=== PATIENT | female | born 1995 | race African-American/Black ===

== ENCOUNTER 2016-11-18 20:18 | Emergency (ER) | payer OTHER ==
[2016-11-18] MEDS ORDERED: METOCLOPRAMIDE 5 MG/ML 2 ML VIAL IVP STA (22:28)
[2016-11-18] MEDS ORDERED: KETOROLAC 30 MG/ML 1 ML VIAL IVP STA (22:28)
[2016-11-18] MEDS ORDERED: diphenhydrAMINE 50 MG/ML 1 ML VIAL IVP STA (22:28)
[2016-11-18] MEDS ORDERED: SODIUM CHLORIDE 0.9% 1,000 ML IV STA (22:28)
[2016-11-18] MEDS ORDERED: ACETAMINOPHEN IV (For NPO) 1,000 MG in EMPTY BAG 1 BAG IVPB STA (22:33)
--- NOTE | 2016-11-18 23:21 | ED ---
Headache HPI - General Chief Complaint: Headache Stated Complaint: migraine Source: RN notes reviewed Mode of arrival: ambulatory Limitations: no limitations - History of Present Illness Initial Comments: Patient is a 21-year-old female presenting to emergency department with 1 week of migraine-like headache. Patient reports that she try take Aleve at home however did not much relief. Patient reports that she did feel slightly nauseated. She states she is photophobic. Patient reports that she has had migraines in the past however they've never persisted this long. She states that the pain is mainly in the right side. She denies any neurological deficits including changes in vision, paralysis, altered mental status. She denies any head trauma.Patient denies any recent fever, chills, shortness of breath, chest pain, back pain, abdominal pain, nausea vomiting, numbness or tingling, dysuria or hematuria, constipation or diarrhea, headaches or visual changes, or any other current symptoms - Related Data Home Medications Medication Instructions Recorded Confirmed Insulin Aspart [NovoLOG] See Protocol SQ 11/18/16 Insulin Glargine [Lantus] 25 units SQ DAILY 11/18/16 11/18/16 Previous Rx's Medication Instructions Recorded Ondansetron Odt [Zofran Odt] 4 mg PO Q8HR PRN #12 tab 11/19/16 Allergies Allergy/AdvReac Type Severity Reaction Status Date / Time No Known Allergies Allergy Verified 11/18/16 22:35 Review of Systems ROS Statement: Those systems with pertinent positive or pertinent negative responses have been documented in the HPI. ROS Other: All systems not noted in ROS Statement are negative. Past Medical History Past Medical History: Diabetes Mellitus History of Any Multi-Drug Resistant Organisms: None Reported Past Surgical History: No Surgical Hx Reported Past Psychological History: No Psychological Hx Reported Smoking Status: Never smoker Past Alcohol Use History: None Reported Past Drug Use History: Marijuana General Exam - General Exam Comments Initial Comments: Well-appearing 21-year-old female. Limitations: no limitations General appearance: alert, in no apparent distress Head exam: Present: atraumatic, normocephalic, normal inspection Eye exam: Present: normal appearance, PERRL, EOMI. Absent: scleral icterus, conjunctival injection, periorbital swelling ENT exam: Present: normal exam, mucous membranes moist Neck exam: Present: normal inspection. Absent: tenderness, meningismus, lymphadenopathy Respiratory exam: Present: normal lung sounds bilaterally. Absent: respiratory distress, wheezes, rales, rhonchi, stridor Cardiovascular Exam: Present: regular rate, normal rhythm, normal heart sounds. Absent: systolic murmur, diastolic murmur, rubs, gallop, clicks GI/Abdominal exam: Present: soft, normal bowel sounds. Absent: distended, tenderness, guarding, rebound, rigid Extremities exam: Present: normal inspection, full ROM, normal capillary refill. Absent: tenderness, pedal edema, joint swelling, calf tenderness Back exam: Present: normal inspection Neurological exam: Present: alert, oriented X3, CN II-XII intact Expanded Patient oriented to: Present: person, place, time Speech: Present: fluid speech Cranial nerves: EOM's Intact: Normal, Tongue Deviation: Normal, Facial Sensation : Normal Cerebellar function: Finger to Nose: Normal Upper motor neuron: Pronator Drift: Normal Sensory exam: Upper Extremity Light Touch: Normal, Lower Extremity Light Touch: Normal Motor strength exam: RUE: 5, LUE: 5, RLE: 5, LLE: 5 Eye Response: (4) open spontaneously Motor Response: (6) obeys commands Verbal Response: (5) oriented [place] Total: 0 Psychiatric exam: Present: normal affect, normal mood Skin exam: Present: warm, dry, intact, normal color. Absent: rash Course Vital Signs 11/18/16 11/19/16 20:31 01:31 Temperature 98.1 F 98.4 F Pulse Rate 104 H 84 Respiratory 20 16 Rate Blood Pressure 133/93 130/56 O2 Sat by Pulse 99 97 Oximetry - Reevaluation(s) Reevaluation #1: 11/19/16 00:11 She was reevaluated and was dry heaving. Patient reports that her headache is worse. Medical Decision Making - Medical Decision Making is 21-year-old female presenting to the with 5 days of migraine-like headache. Patient reports that is mainly over the right side of her head. She reports that she took Aleve at home with no relief of symptoms. Patient was given IV Reglan, Benadryl, ofirmev and Toradol. Patient stated that she did have continued dry heaving. At that point patient reports her headache was worse. Patient did receive a CT brain and and was negative. Patient will be discharged at this time stating that her headache feels much improved after further hydration. Patient will be discharged with a prescription of Zofran. Patient understands return parameters. I advised patient follow-up with pcp in regards to maintenance medication for migraine. Patient understands and will comply with the treatment plan. - Radiology Data Radiology results: report reviewed CT of brain reveals no evidence of any acute abnormalities. Disposition Clinical Impression: Migraine, Nausea Disposition: HOME SELF-CARE Condition: Good Instructions: Acute Headache (ED) Additional Instructions: Continue Motrin Tylenol for headache. Patient instructed to follow up with primary care regards to migraine maintenance medications. Return to the [facility] if any alarming signs or symptoms occur. Remember stay hydrated and to have small frequent meals. Prescriptions: Ondansetron Odt [Zofran Odt] 4 mg PO Q8HR PRN #12 tab PRN Reason: Pain Referrals: Radha Choi MD [Primary Care Provider] - 1-2 days Time of Disposition: 00:35
[2016-11-19] MEDS ORDERED: ONDANSETRON 4 MG/2 ML VIAL IVP STA (00:01)
--- NOTE | 2016-11-19 00:58 | CT ---
EXAMINATION TYPE: CT brain wo con DATE OF EXAM: 11/19/2016 12:26 AM COMPARISON: NONE HISTORY: migraine headache CT DLP: 1144.70 mGycm Automated exposure control for dose reduction was used. FINDINGS: There is no acute intracranial hemorrhage, mass effect, or midline shift identified. The ventricles and sulci are within normal limits in size. The globes are intact and the visualized sinuses are steven ar. Earing artifacts are noted bilaterally limiting the evaluation. IMPRESSION: No acute intracranial hemorrhage, mass effect, or midline shift is seen. If clinical symptoms persist MRI scan may be helpful.
[2016-11-19 01:31] VITALS: BP 130/56; PULSE 84; RESP 16; TEMP 98.4
== END 2016-11-19 01:31 | disposition home or self-care (01) ==
LOC: EC 20:18
DX: G43.909 Migraine, unspecified, not intractable, without status migrainosus (principal); E11.9 Type 2 diabetes mellitus without complications; Z79.4 Long term (current) use of insulin
CPT/HCPCS: 99284; 96365; 96375; 70450; J1200; J2765; J2405; J1885; J0131

== ENCOUNTER 2016-12-16 14:20 | Emergency (ER) | payer OTHER ==
[2016-12-16] MEDS ORDERED: BUTALB/APAP/CAFF 50-325-40MG TAB PO STA (16:21)
[2016-12-16] MEDS ORDERED: ONDANSETRON ODT 4 MG TAB PO STA (16:22)
--- NOTE | 2016-12-16 16:28 | ED ---
General Adult HPI - General Chief complaint: ENT Stated complaint: Pressure R side of head/Vomiting Time Seen by Provider: 12/16/16 16:08 Source: patient, RN notes reviewed, old records reviewed Mode of arrival: ambulatory Limitations: no limitations - History of Present Illness Initial comments: Chief complaint history of present illness is a 21-year-old female with complaint of recurrent headache. The patient was in emergency room several weeks ago was given a prescription for Zofran to control nausea vomiting but she did not get it filled in essence lost it. Today she was sent home from work because of a headache and vomiting. The patient works as a beautician. Or lateralizing findings. Right frontal headache area. Her migraine started approximately 3 years ago the intermittent. Not related to any particular event. Denies any head injury or problems with the infections. - Related Data Home Medications Medication Instructions Recorded Confirmed Insulin Aspart [NovoLOG] See Protocol SQ AC-TID 11/18/16 12/16/16 Lisinopril [Zestril] 10 mg PO DAILY 12/16/16 12/16/16 metFORMIN HCL [Glucophage] 500 mg PO BID 12/16/16 12/16/16 Previous Rx's Medication Instructions Recorded Butalb/Acetaminophen/Caffeine 1 cap PO Q4HR #10 cap 12/16/16 [Fioricet 50-300-40 mg Capsule] Ondansetron Odt [Zofran ODT] 4 mg PO Q8HR PRN #5 tab 12/16/16 Allergies Allergy/AdvReac Type Severity Reaction Status Date / Time No Known Allergies Allergy Verified 12/16/16 15:45 Review of Systems ROS Statement: Those systems with pertinent positive or pertinent negative responses have been documented in the HPI. Review of systems. Mild photophobia right frontal headache. No nasal drainage. Mild discomfort to the right ear. No stiff neck no chest pain shows breath GI/ problems no neuro deficits. All systems are reviewed. Past medical problems significant for migraines a starter fracture 3 years ago without any particular reason. She also has a history of asthma. She takes medication for non-insulin diabetes mellitus. Surgeries none. Family history mother had brain cancer and grandfather had stomach cancer. She denies ALLERGIES nonsmoker nondrinker. ROS Other: All systems not noted in ROS Statement are negative. Past Medical History Past Medical History: Diabetes Mellitus Additional Past Medical History / Comment(s): migraines History of Any Multi-Drug Resistant Organisms: None Reported Past Surgical History: No Surgical Hx Reported Past Psychological History: No Psychological Hx Reported Smoking Status: Never smoker Past Alcohol Use History: None Reported Past Drug Use History: Marijuana General Exam - General Exam Comments Initial Comments: General: The patient is awake and alert, sent home from work she vomited once with a headache which is recurrent. Vital signs shows temperature 97.7 pulse 90 respiratory rate 18 pulse ox 97% room air blood pressure 144/85. Mildly elevated stomach and diastolic noted. The patient is on blood pressure pills. The patient will be following up with her family physician in the next week 10 days. Morbidly obese, 315 pounds. Eye: Pupils are equal, round and reactive to light, extra-ocular movements are intact ; there is normal conjunctiva bilaterally. No signs of icterus. Headache right frontal area tenderness with palpation over the skin. No rash noted. We did discuss temporal arteritis. Ears, nose, mouth and throat: There are moist mucous membranes and no oral lesions. Neck: The neck is supple, there is no tenderness , no anterior cervical lymphadenopathy. Cardiovascular: There is a regular rate and rhythm. No murmur, rub or gallop is appreciated. Respiratory: Lungs are clear to auscultation, respirations are non-labored, breath sounds are equal. No wheezes, stridor, rales, or rhonchi. Gastrointestinal: Soft, non-distended, non-tender abdomen without masses or organomegaly noted. There is no rebound or guarding present. No CVA tenderness. Bowel sounds are unremarkable. Back: No complaint of back pain. Musculoskeletal: Normal ROM, no tenderness, There is no pedal edema. There is no calf tenderness or swelling. Sensation intact. Neurological: CN II-XII intact, There are no obvious motor or sensory deficits. Coordination appears grossly intact. Speech is normal. No focal or lateralizing findings Skin: Skin is warm and dry and no rashes or lesions are noted. Limitations: no limitations Course Vital Signs 12/16/16 14:44 Temperature 97.7 F Pulse Rate 90 Respiratory 18 Rate Blood Pressure 144/85 O2 Sat by Pulse 97 Oximetry Medical Decision Making - Medical Decision Making Medical decision making; the patient will be following up with her family physician. Advised to take Fioricet getting of a headache as well as Zofran. Told to rest relax for an hour if she can possibly take a nap that will help. Disposition Clinical Impression: Acute headache Disposition: HOME SELF-CARE Condition: Stable Instructions: Tension Headache (ED) Additional Instructions: At the first sign of a headache take one Fioricet and Zofran and try to rest. Follow-up with family physician. Prescriptions: Butalb/Acetaminophen/Caffeine [Fioricet 50-300-40 mg Capsule] 1 cap PO Q4HR #10 cap Ondansetron Odt [Zofran ODT] 4 mg PO Q8HR PRN #5 tab PRN Reason: Nausea Time of Disposition: 16:28
[2016-12-16 16:44] VITALS: BP 138/87; PULSE 18; RESP 98; TEMP 97.6
== END 2016-12-16 16:44 | disposition home or self-care (01) ==
LOC: EC 14:20
DX: R51 Headache (principal); E11.9 Type 2 diabetes mellitus without complications; Z79.899 Other long term (current) drug therapy; Z79.84 Long term (current) use of oral hypoglycemic drugs
CPT/HCPCS: 99283

== ENCOUNTER 2017-03-27 18:53 | Emergency (ER) | payer OTHER ==
--- NOTE | 2017-03-27 20:02 | ED ---
General Adult HPI - General Chief complaint: GI Bleed Stated complaint: blood in stool Time Seen by Provider: 03/27/17 19:45 Source: patient, family, RN notes reviewed Mode of arrival: ambulatory Limitations: no limitations - History of Present Illness Initial comments: 22-year-old female presenting for blood in her stool. Patient states around 11 AM today she had a bowel movement and noticed some red blood. She denies ever having this happen before. She denies any abdominal pain associated. She denies any blood thinner use. She denies any pain with defecation. She does state she has a history of diabetes which is controlled with insulin. Otherwise no significant medical history. She has not had any other bowel movements today. She denies chest pain or shortness breath. She denies nausea or vomiting. - Related Data Home Medications Medication Instructions Recorded Confirmed Insulin Aspart [NovoLOG] See Protocol SQ AC-TID PRN 11/18/16 03/27/17 Insulin Glargine [Lantus] 15 unit SQ HS 03/27/17 03/27/17 Allergies Allergy/AdvReac Type Severity Reaction Status Date / Time No Known Allergies Allergy Verified 03/27/17 20:15 Review of Systems ROS Statement: Those systems with pertinent positive or pertinent negative responses have been documented in the HPI. ROS Other: All systems not noted in ROS Statement are negative. Past Medical History Past Medical History: Diabetes Mellitus Additional Past Medical History / Comment(s): migraines History of Any Multi-Drug Resistant Organisms: None Reported Past Surgical History: No Surgical Hx Reported Past Psychological History: No Psychological Hx Reported Smoking Status: Never smoker Past Alcohol Use History: None Reported Past Drug Use History: None Reported General Exam - General Exam Comments Initial Comments: General: Awake and Alert. No acute distress. Does not appear acutely ill. Obese. Eyes: ELEAZAR, EOM intact. No nystagmus. No scleral icterus. HENT: Atraumatic, normocephalic. Mucous membranes moist. Trachea midline. Neck: The neck is supple, there is no tenderness or JVD. Cardiovascular: Regular rate and rhythm. No murmur, rub, or gallop is appreciated. Distal pulses intact. Respiratory: Lungs are clear to auscultation bilaterally. No wheezes, rales, rhonchi. No respiratory distress. Gastrointestinal: Soft, Nontender. No rebound or guarding. Non-distended. No masses or organomegaly noted. No CVA tenderness. Genitourinary: Rectal exam performed with female nurse present. No evidence of external hemorrhoids or fissures. Good rectal tone. No rectal masses. No gross blood on rectal exam. Musculoskeletal: No tenderness. Normal ROM. No gross deformity. No strength deficits. Neurological: A&Ox3. CN II-XII grossly intact, There are no obvious motor or sensory deficits. Coordination appears grossly intact. Speech is normal. Skin: Skin is warm and dry and no rashes or lesions are noted. Psychiatric: Cooperative, appropriate mood & affect, normal judgment. Limitations: no limitations Course Vital Signs 03/27/17 03/27/17 19:32 21:25 Temperature 97.9 F 97.5 F L Pulse Rate 100 88 Respiratory 18 16 Rate Blood Pressure 119/64 153/76 O2 Sat by Pulse 98 96 Oximetry Medical Decision Making - Medical Decision Making 22-year-old female presenting for rectal bleeding. Patient appears stable and nontoxic and initial exam. Stable vital signs. No abdominal tenderness or evidence of acute peritonitis. Lab work with mild leukocytosis, nonspecific, low suspicion of significant infectious etiology. Stable H&H. Stable BMP. LFTs within normal limits. UA without evidence of infection. Occult testing is negative. Patient reevaluated. Remained stable. Updated on results. Discussed nonspecific GI bleeding, but reassuring findings and stable H&H. Discussed close follow-up with PCP. Given referral for GI for further evaluation. Discussed need for colonoscopy for further evaluation if symptoms return. Discussed concerning signs symptoms for immediate return to the ED. Patient is agreeable with plan and discharge home. - Lab Data Result diagrams: 03/27/17 19:55 03/27/17 19:55 Lab Results 03/27/17 03/27/17 03/27/17 Range/Units 19:55 19:55 19:55 WBC 13.0 H (3.8-10.6) k/uL RBC 4.79 (3.80-5.40) m/uL Hgb 13.8 (11.4-16.0) gm/dL Hct 40.5 (34.0-46.0) % MCV 84.5 (80.0-100.0) fL MCH 28.8 (25.0-35.0) pg MCHC 34.1 (31.0-37.0) g/dL RDW 12.8 (11.5-15.5) % Plt Count 326 (150-450) k/uL Neutrophils % 66 % Lymphocytes % 26 % Monocytes % 5 % Eosinophils % 1 % Basophils % 1 % Neutrophils # 8.5 H (1.3-7.7) k/uL Lymphocytes # 3.4 (1.0-4.8) k/uL Monocytes # 0.7 (0-1.0) k/uL Eosinophils # 0.2 (0-0.7) k/uL Basophils # 0.1 (0-0.2) k/uL Sodium 138 (137-145) mmol/L Potassium 3.9 (3.5-5.1) mmol/L Chloride 101 (98-107) mmol/L Carbon Dioxide 25 (22-30) mmol/L Anion Gap 12 mmol/L BUN 11 (7-17) mg/dL Creatinine 0.50 L (0.52-1.04) mg/dL Est GFR (MDRD) Af Amer >60 (>60 ml/min/1.73 sqM) Est GFR (MDRD) Non-Af >60 (>60 ml/min/1.73 sqM) Glucose 289 H (74-99) mg/dL Calcium 9.8 (8.4-10.2) mg/dL Total Bilirubin 0.7 (0.2-1.3) mg/dL AST 25 (14-36) U/L ALT 43 (9-52) U/L Alkaline Phosphatase 76 (38-126) U/L Total Protein 7.9 (6.3-8.2) g/dL Albumin 4.2 (3.5-5.0) g/dL Urine Color Urine Appearance (Clear) Urine pH (5.0-8.0) Ur Specific [place] (1.001-1.035) Urine Protein (Negative) Urine Glucose (UA) (Negative) Urine Ketones (Negative) Urine Blood (Negative) Urine Nitrite (Negative) Urine Bilirubin (Negative) Urine Urobilinogen (<2.0) mg/dL Ur Leukocyte Esterase (Negative) Urine HCG, Qual Not Detected (Not Detectd) Stool Occult Blood (Negative) 03/27/17 03/27/17 Range/Units 19:55 21:01 WBC (3.8-10.6) k/uL RBC (3.80-5.40) m/uL Hgb (11.4-16.0) gm/dL Hct (34.0-46.0) % MCV (80.0-100.0) fL MCH (25.0-35.0) pg MCHC (31.0-37.0) g/dL RDW (11.5-15.5) % Plt Count (150-450) k/uL Neutrophils % % Lymphocytes % % Monocytes % % Eosinophils % % Basophils % % Neutrophils # (1.3-7.7) k/uL Lymphocytes # (1.0-4.8) k/uL Monocytes # (0-1.0) k/uL Eosinophils # (0-0.7) k/uL Basophils # (0-0.2) k/uL Sodium (137-145) mmol/L Potassium (3.5-5.1) mmol/L Chloride (98-107) mmol/L Carbon Dioxide (22-30) mmol/L Anion Gap mmol/L BUN (7-17) mg/dL Creatinine (0.52-1.04) mg/dL Est GFR (MDRD) Af Amer (>60 ml/min/1.73 sqM) Est GFR (MDRD) Non-Af (>60 ml/min/1.73 sqM) Glucose (74-99) mg/dL Calcium (8.4-10.2) mg/dL Total Bilirubin (0.2-1.3) mg/dL AST (14-36) U/L ALT (9-52) U/L Alkaline Phosphatase (38-126) U/L Total Protein (6.3-8.2) g/dL Albumin (3.5-5.0) g/dL Urine Color Yellow Urine Appearance Clear (Clear) Urine pH 5.5 (5.0-8.0) Ur Specific [place] 1.028 (1.001-1.035) Urine Protein Trace H (Negative) Urine Glucose (UA) 4+ H (Negative) Urine Ketones 1+ H (Negative) Urine Blood Negative (Negative) Urine Nitrite Negative (Negative) Urine Bilirubin Negative (Negative) Urine Urobilinogen <2.0 (<2.0) mg/dL Ur Leukocyte Esterase Negative (Negative) Urine HCG, Qual (Not Detectd) Stool Occult Blood Negative (Negative) Disposition Clinical Impression: GI bleed Disposition: HOME SELF-CARE Condition: Stable Instructions: Gastrointestinal Bleeding (ED) Referrals: Radha Choi MD [Primary Care Provider] - 1-[address] MD [STAFF PHYSICIAN] - 1-2 days Time of Disposition: 21:08
[2017-03-27 20:16] LABS: Basophils # (A) 0.1 k/uL (0-0.2); Basophils % (A) 1 %; CH 29.4; CHCM 34.9; Eosinophils # (A) 0.2 k/uL (0-0.7); Eosinophils % (A) 1 %; HCT 40.5 % (34.0-46.0); HDW 2.69; HGB 13.8 gm/dL (11.4-16.0); Luc # (Auto) 0.19; Luc % (Auto) 2; Lymphocytes # (A) 3.4 k/uL (1.0-4.8); Lymphocytes % (A) 26 %; MCH 28.8 pg (25.0-35.0); MCHC 34.1 g/dL (31.0-37.0); MCV 84.5 fL (80.0-100.0); Mean Platelet Volume 8.4; Monocytes # (A) 0.7 k/uL (0-1.0); Monocytes % (A) 5 %; Neutrophils # (A) 8.5 k/uL (1.3-7.7); Neutrophils % (A) 66 %; RBC 4.79 m/uL (3.80-5.40); RDW 12.8 % (11.5-15.5); WBC (Perox) 12.83
[2017-03-27 20:28] LABS: Appearance,Urine Clear (Clear); Bilirubin,Urine Negative (Negative); Glucose,Urine (UA) 4+ (Negative); Ketones,Urine 1+ (Negative); Leukocyte Esterase,Urine Negative (Negative); Nitrite,Urine Negative (Negative); PH, Urine 5.5 (5.0-8.0); Protein,Urine Trace (Negative); Specific Gravity,Urine 1.028 (1.001-1.035); UA Billing (MACRO vs. MICRO) CHEM; Urobilinogen,Urine <2.0 mg/dL (<2.0)
[2017-03-27 20:39] LABS: ALT 43 U/L (9-52); AST 25 U/L (14-36); Alkaline Phosphatase 76 U/L (38-126); Anion Gap 12 mmol/L; Blood Urea Nitrogen 11 mg/dL (7-17); Calcium 9.8 mg/dL (8.4-10.2); Carbon Dioxide 25 mmol/L (22-30); Chloride 101 mmol/L (98-107); Glucose 289 mg/dL (74-99); Non-African American GFR(MDRD) >60 (>60 ml/min/1.73 sqM); Potassium 3.9 mmol/L (3.5-5.1); Sodium 138 mmol/L (137-145); Total Bilirubin 0.7 mg/dL (0.2-1.3); Total Protein 7.9 g/dL (6.3-8.2)
[2017-03-27 21:29] VITALS: BP 153/76; PULSE 88; RESP 16; TEMP 97.5
== END 2017-03-27 21:25 | disposition home or self-care (01) ==
LOC: EC 18:53
DX: K92.2 Gastrointestinal hemorrhage, unspecified (principal); D72.829 Elevated white blood cell count, unspecified; E11.9 Type 2 diabetes mellitus without complications; Z79.4 Long term (current) use of insulin
CPT/HCPCS: 36415; 80053; 81003; 81025; 82272; 85025; 99284

== ENCOUNTER 2017-12-02 16:15 | Emergency (ER) | payer OTHER ==
[2017-12-02 16:23] VITALS: RESP 18
[2017-12-02] MEDS ORDERED: SODIUM CHLORIDE 0.9% 1,000 ML IV STA (17:01)
[2017-12-02] MEDS ORDERED: METOCLOPRAMIDE 5 MG/ML 2 ML VIAL IVP STA (17:01)
[2017-12-02] MEDS ORDERED: ACETAMINOPHEN TAB 500 MG TAB PO STA (17:02)
[2017-12-02] MEDS ORDERED: IBUPROFEN 600 MG TAB PO STA (17:02)
[2017-12-02 17:16] LABS: Basophils % (A) 0 %; Eosinophils # (A) 0.2 k/uL (0-0.7); Eosinophils % (A) 2 %; HCT 37.6 % (34.0-46.0); HGB 12.5 gm/dL (11.4-16.0); Lymphocytes # (A) 1.2 k/uL (1.0-4.8); Lymphocytes % (A) 13 %; MCH 28.6 pg (25.0-35.0); MCHC 33.2 g/dL (31.0-37.0); MCV 86.1 fL (80.0-100.0); Mean Platelet Volume 9.4; Monocytes # (A) 0.5 k/uL (0-1.0); Monocytes % (A) 6 %; Neutrophils # (A) 7.3 k/uL (1.3-7.7); Neutrophils % (A) 77 %; Platelet Count 281 k/uL (150-450); RBC 4.37 m/uL (3.80-5.40); RDW 13.9 % (11.5-15.5); WBC 9.5 k/uL (3.8-10.6)
[2017-12-02 17:25] LABS: Appearance,Urine Clear (Clear); Bilirubin,Urine Negative (Negative); Blood,Urine Small (Negative); Color,Urine Yellow; Glucose,Urine (UA) Negative (Negative); Ketones,Urine Negative (Negative); Leukocyte Esterase,Urine Negative (Negative); Mucus,Urine Rare /hpf; Nitrite,Urine Negative (Negative); Protein,Urine Negative (Negative); RBC,Urine 12 /hpf (0-5); Specific Gravity,Urine 1.009 (1.001-1.035); Urobilinogen,Urine <2.0 mg/dL (<2.0); WBC,Urine <1 /hpf (0-5)
[2017-12-02 17:27] LABS: Glucose,Whole Blood 142 mg/dL (75-99)
[2017-12-02 17:29] LABS: ALT 34 U/L (9-52); AST 21 U/L (14-36); Albumin 4.2 g/dL (3.5-5.0); Alkaline Phosphatase 63 U/L (38-126); Anion Gap 12 mmol/L; Blood Urea Nitrogen 5 mg/dL (7-17); Calcium 9.5 mg/dL (8.4-10.2); Carbon Dioxide 25 mmol/L (22-30); Chloride 103 mmol/L (98-107); Glucose 151 mg/dL (74-99); Potassium 4.2 mmol/L (3.5-5.1); Sodium 140 mmol/L (137-145); Total Bilirubin 0.6 mg/dL (0.2-1.3); Total Protein 7.5 g/dL (6.3-8.2)
--- NOTE | 2017-12-02 17:33 | ED ---
General Adult HPI - General Chief complaint: Abdominal Pain Stated complaint: Vomiting/Abd Pain Time Seen by Provider: 12/02/17 16:47 Source: patient, RN notes reviewed Mode of arrival: ambulatory Limitations: no limitations - History of Present Illness Initial comments: 22-year-old female presents to the emergency department with a chief complaint of fever cough abdominal pain chest pain headache. She states she's been feeling this way for the past for 5 days. She states that she has vomited a few times with this. She states that she is having a little bit of production with the cough. She states she was concerned because she just does not seem to be getting better so she thought that she should be evaluated. Patient states that there is been no ear pain with this. Patient denies any other symptoms at this time. Patient denies any recent shortness of breath, back pain, numbness or tingling, dysuria or hematuria, constipation or diarrhea, visual changes, or any other current symptoms. - Related Data Home Medications Medication Instructions Recorded Confirmed Insulin Aspart [NovoLOG] See Protocol SQ AC-TID PRN 11/18/16 12/02/17 Insulin Glargine [Lantus] 15 unit SQ HS 03/27/17 12/02/17 metFORMIN HCL [Glucophage] 500 mg PO DAILY 12/02/17 12/02/17 Allergies Allergy/AdvReac Type Severity Reaction Status Date / Time No Known Allergies Allergy Verified 12/02/17 16:50 Review of Systems ROS Statement: Those systems with pertinent positive or pertinent negative responses have been documented in the HPI. ROS Other: All systems not noted in ROS Statement are negative. Past Medical History Past Medical History: Diabetes Mellitus Additional Past Medical History / Comment(s): migraines History of Any Multi-Drug Resistant Organisms: None Reported Past Surgical History: No Surgical Hx Reported Past Psychological History: No Psychological Hx Reported Smoking Status: Never smoker Past Alcohol Use History: Rare Past Drug Use History: Marijuana General Exam - General Exam Comments Initial Comments: General: The patient is awake and alert, in no distress, and does not appear acutely ill. Eye: Pupils are equal, round and reactive to light. Ears, nose, mouth and throat: There are moist mucous membranes. Neck: The neck is supple, there is no tenderness. Cardiovascular: There is a regular rate and rhythm. No murmur, rub or gallop is appreciated. Respiratory: Lungs are clear to auscultation, respirations are non-labored, breath sounds are equal. No wheezes, stridor, rales, or rhonchi. Gastrointestinal: Soft, non-distended, non-tender abdomen without masses or organomegaly noted. There is no rebound or guarding present. No CVA tenderness. Bowel sounds are unremarkable. Back: There is no tenderness to palpation in the midline. There is no obvious deformity. No rashes noted. Musculoskeletal: Normal ROM, no tenderness, There is no pedal edema. There is no calf tenderness or swelling. Sensation intact. Pulses equal bilaterally 2+. Neurological: CN II-XII intact, There are no obvious motor or sensory deficits. Coordination appears grossly intact. Speech is normal. Skin: Skin is warm and dry and no rashes or lesions are noted. Psychiatric: Cooperative, appropriate mood & affect, normal judgment. Limitations: no limitations Course Vital Signs 12/02/17 16:19 Temperature 101 F H Pulse Rate 77 Respiratory 18 Rate Blood Pressure 149/81 O2 Sat by Pulse 96 Oximetry EKG Findings - EKG Comments: EKG Findings:: normal sinus rhythm 72 bpm, normal axis, no atopy, no S-T depressions or elevations, Medical Decision Making - Medical Decision Making 22-year-old female presents with multiple complaints. Laboratory results of been reviewed. Patient is PERC negative. We did discuss in detail with the patient. We did discuss close follow-up with her doctor return parameters all questions. Patient stated that she understood she is in agreement this plan. All questions have been answered. She will be discharged. - Lab Data Result diagrams: 12/02/17 17:00 12/02/17 17:00 Lab Results 12/02/17 12/02/17 12/02/17 Range/Units 17:00 17:00 17:00 WBC 9.5 (3.8-10.6) k/uL RBC 4.37 (3.80-5.40) m/uL Hgb 12.5 (11.4-16.0) gm/dL Hct 37.6 (34.0-46.0) % MCV 86.1 (80.0-100.0) fL MCH 28.6 (25.0-35.0) pg MCHC 33.2 (31.0-37.0) g/dL RDW 13.9 (11.5-15.5) % Plt Count 281 (150-450) k/uL Neutrophils % 77 % Lymphocytes % 13 % Monocytes % 6 % Eosinophils % 2 % Basophils % 0 % Neutrophils # 7.3 (1.3-7.7) k/uL Lymphocytes # 1.2 (1.0-4.8) k/uL Monocytes # 0.5 (0-1.0) k/uL Eosinophils # 0.2 (0-0.7) k/uL Basophils # 0.0 (0-0.2) k/uL Sodium 140 (137-145) mmol/L Potassium 4.2 (3.5-5.1) mmol/L Chloride 103 (98-107) mmol/L Carbon Dioxide 25 (22-30) mmol/L Anion Gap 12 mmol/L BUN 5 L (7-17) mg/dL Creatinine 0.51 L (0.52-1.04) mg/dL Est GFR (MDRD) Af Amer >60 (>60 ml/min/1.73 sqM) Est GFR (MDRD) Non-Af >60 (>60 ml/min/1.73 sqM) Glucose 151 H (74-99) mg/dL POC Glucose (mg/dL) (75-99) mg/dL POC Glu Featheredge Machine Operator ID Calcium 9.5 (8.4-10.2) mg/dL Total Bilirubin 0.6 (0.2-1.3) mg/dL AST 21 (14-36) U/L ALT 34 (9-52) U/L Alkaline Phosphatase 63 (38-126) U/L Troponin I (0.000-0.034) ng/mL Total Protein 7.5 (6.3-8.2) g/dL Albumin 4.2 (3.5-5.0) g/dL Urine Color Urine Appearance (Clear) Urine pH (5.0-8.0) Ur Specific [place] (1.001-1.035) Urine Protein (Negative) Urine Glucose (UA) (Negative) Urine Ketones (Negative) Urine Blood (Negative) Urine Nitrite (Negative) Urine Bilirubin (Negative) Urine Urobilinogen (<2.0) mg/dL Ur Leukocyte Esterase (Negative) Urine RBC (0-5) /hpf Urine WBC (0-5) /hpf Urine Mucus (None) /hpf Acetone, Qual Negative (Negative) Influenza Type A RNA Not Detected (Not Detectd) Influenza Type B (PCR) Not Detected (Not Detectd) 12/02/17 12/02/17 12/02/17 Range/Units 17:00 17:00 17:21 WBC (3.8-10.6) k/uL RBC (3.80-5.40) m/uL Hgb (11.4-16.0) gm/dL Hct (34.0-46.0) % MCV (80.0-100.0) fL MCH (25.0-35.0) pg MCHC (31.0-37.0) g/dL RDW (11.5-15.5) % Plt Count (150-450) k/uL Neutrophils % % Lymphocytes % % Monocytes % % Eosinophils % % Basophils % % Neutrophils # (1.3-7.7) k/uL Lymphocytes # (1.0-4.8) k/uL Monocytes # (0-1.0) k/uL Eosinophils # (0-0.7) k/uL Basophils # (0-0.2) k/uL Sodium (137-145) mmol/L Potassium (3.5-5.1) mmol/L Chloride (98-107) mmol/L Carbon Dioxide (22-30) mmol/L Anion Gap mmol/L BUN (7-17) mg/dL Creatinine (0.52-1.04) mg/dL Est GFR (MDRD) Af Amer (>60 ml/min/1.73 sqM) Est GFR (MDRD) Non-Af (>60 ml/min/1.73 sqM) Glucose (74-99) mg/dL POC Glucose (mg/dL) 142 H (75-99) mg/dL POC Glu Featheredge Machine Operator ID Renuka Chatman Calcium (8.4-10.2) mg/dL Total Bilirubin (0.2-1.3) mg/dL AST (14-36) U/L ALT (9-52) U/L Alkaline Phosphatase (38-126) U/L Troponin I <0.012 (0.000-0.034) ng/mL Total Protein (6.3-8.2) g/dL Albumin (3.5-5.0) g/dL Urine Color Yellow Urine Appearance Clear (Clear) Urine pH 7.0 (5.0-8.0) Ur Specific [place] 1.009 (1.001-1.035) Urine Protein Negative (Negative) Urine Glucose (UA) Negative (Negative) Urine Ketones Negative (Negative) Urine Blood Small H (Negative) Urine Nitrite Negative (Negative) Urine Bilirubin Negative (Negative) Urine Urobilinogen <2.0 (<2.0) mg/dL Ur Leukocyte Esterase Negative (Negative) Urine RBC 12 H (0-5) /hpf Urine WBC <1 (0-5) /hpf Urine Mucus Rare H (None) /hpf Acetone, Qual (Negative) Influenza Type A RNA (Not Detectd) Influenza Type B (PCR) (Not Detectd) Disposition Clinical Impression: Upper respiratory infection Disposition: HOME SELF-CARE Condition: Stable Instructions: Upper Respiratory Infection (ED) Additional Instructions: Please use medication as discussed. Please follow up with family doctor if symptoms have not improved over the next two days. Please return to the emergency room if your symptoms increase or worsen or for any other concerns. Referrals: Radha Choi MD [Primary Care Provider] - 1-2 days Time of Disposition: 18:23
--- NOTE | 2017-12-02 17:45 | XR ---
EXAMINATION TYPE: XR chest 2V DATE OF EXAM: 12/02/2017 COMPARISON: NONE HISTORY: Chest pain TECHNIQUE: Frontal and lateral views of the chest are obtained. FINDINGS: There is no heart failure nor confluent pneumonic infiltrate. Costophrenic angles are laura r. There are no hilar masses. Bony thorax is intact. IMPRESSION: No active cardiopulmonary disease. Normal heart.
[2017-12-02 18:25] VITALS: BP 153/75; PULSE 69; TEMP 98.9
== END 2017-12-02 18:30 | disposition home or self-care (01) ==
LOC: EC 16:15
DX: J06.9 Acute upper respiratory infection, unspecified (principal); R10.9 Unspecified abdominal pain; R11.10 Vomiting, unspecified; R07.9 Chest pain, unspecified; E11.9 Type 2 diabetes mellitus without complications; Z86.69 Personal history of other diseases of the nervous system and sense organs; Z79.4 Long term (current) use of insulin
CPT/HCPCS: 36415; 93005; 80053; 82009; 84484; 85025; 81001; 87086; 87502; 71046; 99284; 96374; 96361; J2765

== ENCOUNTER 2018-01-01 11:48 | Emergency (ER) | payer OTHER ==
[2018-01-01] MEDS ORDERED: KETOROLAC 30 MG/ML 1 ML VIAL IVP STA (16:13)
[2018-01-01] MEDS ORDERED: diphenhydrAMINE 50 MG/ML 1 ML VIAL IVP STA (16:13)
[2018-01-01] MEDS ORDERED: METOCLOPRAMIDE 5 MG/ML 2 ML VIAL IVP STA (16:13)
[2018-01-01] MEDS ORDERED: SODIUM CHLORIDE 0.9% 1,000 ML IV ONE (16:14)
--- NOTE | 2018-01-01 16:18 | ED ---
Headache HPI - General Chief Complaint: Headache Stated Complaint: HEADACHE FOR 3 DAYS, Time Seen by Provider: 01/01/18 16:00 Source: patient, RN notes reviewed Mode of arrival: ambulatory Limitations: no limitations - History of Present Illness Initial Comments: This is a 22 year old female who presents to the ED with a chief complaint of migraine which has been present for three days. She states the pain is located on the left frontal region and behind the left eye. She admits photophobia and nausea. The patient has a history of migraines. She denies this being the worst headache of her life, head injury, and has no chance of . - Related Data Home Medications Medication Instructions Recorded Confirmed Insulin Aspart [NovoLOG] See Protocol SQ AC-TID PRN 11/18/16 01/01/18 Insulin Glargine [Lantus] 15 unit SQ HS 03/27/17 01/01/18 Albuterol Inhaler [Ventolin Hfa 2 puff INHALATION RT-Q6H PRN 01/01/18 01/01/18 Inhaler] Ibuprofen [Motrin] 1,200 mg PO DAILY PRN 01/01/18 01/01/18 Multivitamins, Thera [Multivitamin 1 tab PO DAILY 01/01/18 01/01/18 (formulary)] Allergies Allergy/AdvReac Type Severity Reaction Status Date / Time No Known Allergies Allergy Verified 01/01/18 16:06 Review of Systems ROS Statement: Those systems with pertinent positive or pertinent negative responses have been documented in the HPI. ROS Other: All systems not noted in ROS Statement are negative. Past Medical History Past Medical History: Diabetes Mellitus Additional Past Medical History / Comment(s): migraines History of Any Multi-Drug Resistant Organisms: None Reported Past Surgical History: No Surgical Hx Reported Past Psychological History: No Psychological Hx Reported Smoking Status: Never smoker Past Alcohol Use History: Rare Past Drug Use History: Marijuana General Exam Limitations: no limitations General appearance: alert, in no apparent distress Head exam: Present: atraumatic, normocephalic, normal inspection Eye exam: Present: normal appearance, PERRL, EOMI. Absent: scleral icterus, conjunctival injection, periorbital swelling Pupils: Present: normal accommodation ENT exam: Present: normal exam, mucous membranes moist Neck exam: Present: normal inspection, full ROM. Absent: tenderness, meningismus, lymphadenopathy Respiratory exam: Present: normal lung sounds bilaterally. Absent: respiratory distress, wheezes, rales, rhonchi, stridor Cardiovascular Exam: Present: regular rate, normal rhythm, normal heart sounds. Absent: systolic murmur, diastolic murmur, rubs, gallop, clicks Neurological exam: Present: alert, oriented X3, CN II-XII intact, reflexes normal, other (Finger to nose intact bilaterally without shooting.). Absent: motor sensory deficit Psychiatric exam: Present: normal affect, normal mood Skin exam: Present: warm, dry, intact, normal color. Absent: rash Course Vital Signs 01/01/18 01/01/18 12:23 17:24 Temperature 97.7 F Pulse Rate 75 70 Respiratory 18 16 Rate Blood Pressure 180/82 150/69 O2 Sat by Pulse 99 100 Oximetry Medical Decision Making - Medical Decision Making 22-year-old female presented for headache. Patient has typical headache similar to this. Patient feels better after IV medications and hydration. Patient will be discharged. Patient normal neuro exam. Disposition Clinical Impression: Migraine Disposition: HOME SELF-CARE Condition: Stable Instructions: Acute Headache (ED) Additional Instructions: Please return to the Emergency Department if symptoms worsen or any other concerns. Referrals: Radha Choi MD [Primary Care Provider] - 1-2 days Time of Disposition: 17:58
[2018-01-01 18:43] VITALS: BP 147/70; PULSE 72; RESP 18; TEMP 97.6
== END 2018-01-01 18:43 | disposition home or self-care (01) ==
LOC: EC 11:48
DX: G43.909 Migraine, unspecified, not intractable, without status migrainosus (principal); E11.9 Type 2 diabetes mellitus without complications; Z79.4 Long term (current) use of insulin; Z79.899 Other long term (current) drug therapy
CPT/HCPCS: 99283; 96374; 96375 ×2; 96361; J1200; J2765; J1885

== ENCOUNTER 2018-04-11 09:37 | Emergency (ER) | payer OTHER ==
[2018-04-11 09:50] VITALS: RESP 18; TEMP 98.6
[2018-04-11] MEDS ORDERED: SODIUM CHLORIDE 0.9% 1,000 ML IV STA (10:23)
[2018-04-11] MEDS ORDERED: FAMOTIDINE 20 MG/2 ML VIAL IV STA (10:23)
[2018-04-11] MEDS ORDERED: ONDANSETRON 4 MG/2 ML VIAL IVP STA ×2 (10:23→12:19)
--- NOTE | 2018-04-11 10:26 | ED ---
General Adult HPI - General Chief complaint: Abdominal Pain Stated complaint: abdominal pain Time Seen by Provider: 04/11/18 10:12 Source: patient, RN notes reviewed Mode of arrival: ambulatory Limitations: no limitations - History of Present Illness Initial comments: Patient 23-year-old female significant past medical history for diabetes, presented to the emergency room today with chief complaint of abdominal pain. Patient does admit that she's had nausea vomiting. She states that symptoms started 2 days ago. Patient doesn't that she's had abdominal pain similar to this in the past but usually just last few days and goes away. She states that it comes and goes. She was admitted that specifically seems to be worse after she eats or drinks. Patient does admit that the nausea vomiting is new. Patient denies any other complaints or symptoms at this time. Patient denies any recent fever, chills, shortness of breath, chest pain, back pain, numbness or tingling, dysuria or hematuria, constipation or diarrhea, headaches or visual changes, or any other complaints. - Related Data Home Medications Medication Instructions Recorded Confirmed Insulin Aspart [NovoLOG] See Protocol SQ AC-TID PRN 11/18/16 01/01/18 Insulin Glargine [Lantus] 15 unit SQ HS 03/27/17 01/01/18 Albuterol Inhaler [Ventolin Hfa 2 puff INHALATION RT-Q6H PRN 01/01/18 01/01/18 Inhaler] Ibuprofen [Motrin] 1,200 mg PO DAILY PRN 01/01/18 01/01/18 Multivitamins, Thera [Multivitamin 1 tab PO DAILY 01/01/18 01/01/18 (formulary)] Previous Rx's Medication Instructions Recorded Ondansetron Odt [Zofran ODT] 4 mg PO Q8HR PRN #20 tab 04/11/18 Allergies Allergy/AdvReac Type Severity Reaction Status Date / Time No Known Allergies Allergy Verified 04/11/18 09:50 Review of Systems ROS Statement: Those systems with pertinent positive or pertinent negative responses have been documented in the HPI. ROS Other: All systems not noted in ROS Statement are negative. Past Medical History Past Medical History: Diabetes Mellitus Additional Past Medical History / Comment(s): migraines History of Any Multi-Drug Resistant Organisms: None Reported Past Surgical History: No Surgical Hx Reported Past Psychological History: No Psychological Hx Reported Smoking Status: Never smoker Past Alcohol Use History: Rare Past Drug Use History: Marijuana General Exam - General Exam Comments Initial Comments: General: The patient is awake and alert, in no distress, and does not appear acutely ill. Eye: Pupils are equal, round and reactive to light, extra-ocular movements are intact. No nystagmus. There is normal conjunctiva bilaterally. No signs of icterus. Ears, nose, mouth and throat: There are moist mucous membranes and no oral lesions. Neck: The neck is supple, there is no tenderness or JVD. Cardiovascular: There is a regular rate and rhythm. No murmur, rub or gallop is appreciated. Respiratory: Lungs are clear to auscultation, respirations are non-labored, breath sounds are equal. No wheezes, stridor, rales, or rhonchi. Gastrointestinal: Abdomen soft on palpation. Patient does have mild tenderness in the right upper quadrant. No rebound tenderness. No guarding. No CVA tenderness. Musculoskeletal: Normal ROM, no tenderness. Strength 5/5. Sensation intact. Pulses equal bilaterally 2+. Neurological: A&O x 3. CN II-XII intact, There are no obvious motor or sensory deficits. Coordination appears grossly intact. Speech is normal. Skin: Skin is warm and dry and no rashes or lesions are noted. Psychiatric: Cooperative, appropriate mood & affect, normal judgment. Limitations: no limitations Course Vital Signs 04/11/18 09:48 Temperature 98.6 F Pulse Rate 94 Respiratory 18 Rate Blood Pressure 136/80 O2 Sat by Pulse 97 Oximetry Medical Decision Making - Medical Decision Making Patient reexamined the center no signs of distress she is resting couple. Doesn 't that she's feeling better. Patient's labs been reviewed patient's urinalysis shows greater than 182 red cells. She does not that she is on her menstrual cycle. At this time patient is doing well will be discharged home. Ultrasound reviewed and negative FOR ANY EVIDENCE OF CHOLECYSTITIS. WAS ADVISED FOLLOW-UP THE FAMILY DOCTOR NEXT 2 DAYS. ADVISED TO RETURN IF SYMPTOMS WORSEN. PATIENT STATES THAT HE IS - Lab Data Result diagrams: 04/11/18 10:45 04/11/18 10:45 Lab Results 04/11/18 04/11/18 04/11/18 Range/Units 10:45 10:45 11:07 WBC 8.9 (3.8-10.6) k/uL RBC 4.82 (3.80-5.40) m/uL Hgb 13.7 (11.4-16.0) gm/dL Hct 39.4 (34.0-46.0) % MCV 81.7 (80.0-100.0) fL MCH 28.5 (25.0-35.0) pg MCHC 34.9 (31.0-37.0) g/dL RDW 12.3 (11.5-15.5) % Plt Count 309 (150-450) k/uL Neutrophils % 69 % Lymphocytes % 21 % Monocytes % 5 % Eosinophils % 3 % Basophils % 0 % Neutrophils # 6.1 (1.3-7.7) k/uL Lymphocytes # 1.9 (1.0-4.8) k/uL Monocytes # 0.5 (0-1.0) k/uL Eosinophils # 0.2 (0-0.7) k/uL Basophils # 0.0 (0-0.2) k/uL Sodium 140 (137-145) mmol/L Potassium 4.3 (3.5-5.1) mmol/L Chloride 101 (98-107) mmol/L Carbon Dioxide 25 (22-30) mmol/L Anion Gap 14 mmol/L BUN 8 (7-17) mg/dL Creatinine 0.30 L (0.52-1.04) mg/dL Est GFR (CKD-EPI)AfAm >90 (>60 ml/min/1.73 sqM) Est GFR (CKD-EPI)NonAf >90 (>60 ml/min/1.73 sqM) Glucose 285 H (74-99) mg/dL POC Glucose (mg/dL) 266 H (75-99) mg/dL POC Glu Photograph Tinter ID Erica Estrada Calcium 9.9 (8.4-10.2) mg/dL Total Bilirubin 0.6 (0.2-1.3) mg/dL AST 19 (14-36) U/L ALT 40 (9-52) U/L Alkaline Phosphatase 88 (38-126) U/L Total Protein 7.2 (6.3-8.2) g/dL Albumin 4.0 (3.5-5.0) g/dL Amylase 56 (30-110) U/L Lipase 107 (23-300) U/L Urine Color Urine Appearance (Clear) Urine pH (5.0-8.0) Ur Specific [place] (1.001-1.035) Urine Protein (Negative) Urine Glucose (UA) (Negative) Urine Ketones (Negative) Urine Blood (Negative) Urine Nitrite (Negative) Urine Bilirubin (Negative) Urine Urobilinogen (<2.0) mg/dL Ur Leukocyte Esterase (Negative) Urine RBC (0-5) /hpf Ur Squamous Epith Cells (0-4) /hpf Urine Mucus (None) /hpf Urine HCG, Qual (Not Detectd) Acetone, Qual Negative (Negative) 04/11/18 04/11/18 Range/Units 11:25 11:25 WBC (3.8-10.6) k/uL RBC (3.80-5.40) m/uL Hgb (11.4-16.0) gm/dL Hct (34.0-46.0) % MCV (80.0-100.0) fL MCH (25.0-35.0) pg MCHC (31.0-37.0) g/dL RDW (11.5-15.5) % Plt Count (150-450) k/uL Neutrophils % % Lymphocytes % % Monocytes % % Eosinophils % % Basophils % % Neutrophils # (1.3-7.7) k/uL Lymphocytes # (1.0-4.8) k/uL Monocytes # (0-1.0) k/uL Eosinophils # (0-0.7) k/uL Basophils # (0-0.2) k/uL Sodium (137-145) mmol/L Potassium (3.5-5.1) mmol/L Chloride (98-107) mmol/L Carbon Dioxide (22-30) mmol/L Anion Gap mmol/L BUN (7-17) mg/dL Creatinine (0.52-1.04) mg/dL Est GFR (CKD-EPI)AfAm (>60 ml/min/1.73 sqM) Est GFR (CKD-EPI)NonAf (>60 ml/min/1.73 sqM) Glucose (74-99) mg/dL POC Glucose (mg/dL) (75-99) mg/dL POC Glu Photograph Tinter ID Calcium (8.4-10.2) mg/dL Total Bilirubin (0.2-1.3) mg/dL AST (14-36) U/L ALT (9-52) U/L Alkaline Phosphatase (38-126) U/L Total Protein (6.3-8.2) g/dL Albumin (3.5-5.0) g/dL Amylase (30-110) U/L Lipase (23-300) U/L Urine Color Light Red Urine Appearance Clear (Clear) Urine pH 6.0 (5.0-8.0) Ur Specific [place] 1.031 (1.001-1.035) Urine Protein 1+ H (Negative) Urine Glucose (UA) 4+ H (Negative) Urine Ketones 1+ H (Negative) Urine Blood Large H (Negative) Urine Nitrite Negative (Negative) Urine Bilirubin Negative (Negative) Urine Urobilinogen <2.0 (<2.0) mg/dL Ur Leukocyte Esterase Small H (Negative) Urine RBC >182 H (0-5) /hpf Ur Squamous Epith Cells 1 (0-4) /hpf Urine Mucus Rare H (None) /hpf Urine HCG, Qual Not Detected (Not Detectd) Acetone, Qual (Negative) Disposition Clinical Impression: Nausea & vomiting, Abdominal pain Disposition: HOME SELF-CARE Condition: Good Instructions: Abdominal Pain (ED) Additional Instructions: Please use medication as discussed. Please follow-up with family doctor in the next 2 days of symptoms have not improved. Please return to emergency room if the symptoms increase or worsen or for any other concerns. Prescriptions: Ondansetron Odt [Zofran ODT] 4 mg PO Q8HR PRN #20 tab PRN Reason: Nausea Is patient prescribed a controlled substance at d/c from ED?: No Referrals: Radha Choi MD [Primary Care Provider] - 1-2 days Time of Disposition: 12:00
[2018-04-11 11:08] LABS: Glucose,Whole Blood 266 mg/dL (75-99)
[2018-04-11 11:10] LABS: Basophils % (A) 0 %; Eosinophils # (A) 0.2 k/uL (0-0.7); Eosinophils % (A) 3 %; HCT 39.4 % (34.0-46.0); HGB 13.7 gm/dL (11.4-16.0); Lymphocytes # (A) 1.9 k/uL (1.0-4.8); Lymphocytes % (A) 21 %; MCH 28.5 pg (25.0-35.0); MCHC 34.9 g/dL (31.0-37.0); MCV 81.7 fL (80.0-100.0); Mean Platelet Volume 7.8; Monocytes # (A) 0.5 k/uL (0-1.0); Monocytes % (A) 5 %; Neutrophils # (A) 6.1 k/uL (1.3-7.7); Neutrophils % (A) 69 %; Platelet Count 309 k/uL (150-450); RBC 4.82 m/uL (3.80-5.40); RDW 12.3 % (11.5-15.5); WBC 8.9 k/uL (3.8-10.6)
[2018-04-11 11:20] LABS: ALT 40 U/L (9-52); AST 19 U/L (14-36); Alkaline Phosphatase 88 U/L (38-126); Amylase 56 U/L (30-110); Anion Gap 14 mmol/L; Blood Urea Nitrogen 8 mg/dL (7-17); Calcium 9.9 mg/dL (8.4-10.2); Carbon Dioxide 25 mmol/L (22-30); Chloride 101 mmol/L (98-107); Glucose 285 mg/dL (74-99); Lipase 107 U/L (23-300); Potassium 4.3 mmol/L (3.5-5.1); Sodium 140 mmol/L (137-145); Total Bilirubin 0.6 mg/dL (0.2-1.3); Total Protein 7.2 g/dL (6.3-8.2)
--- NOTE | 2018-04-11 11:27 | US ---
EXAMINATION TYPE: US abdomen limited DATE OF EXAM: 04/11/2018 COMPARISON: NONE CLINICAL HISTORY: Pain. RUQ pain, vomiting per patient EXAM MEASUREMENTS: Liver Length: 15.9 cm Gallbladder Wall: 0.2 cm CBD: 0.4 cm Right Kidney: 15.1 x 5.5 x 7.6 cm Large patient body habiatus. Pancreas: visualized portions wnl Liver: wnl Gallbladder: No stones seen Evidence for sonographic Patel's sign: No CBD: wnl Right Kidney: No hydronephrosis or masses seen. Prominent column of Oliverio is incidentally noted. IMPRESSION: No sonographic evidence of cholelithiasis or acute cholecystitis. No right-sided hydronep hrosis.
[2018-04-11 11:52] LABS: Appearance,Urine Clear (Clear); Bilirubin,Urine Negative (Negative); Blood,Urine Large (Negative); Color,Urine Light Red; Glucose,Urine (UA) 4+ (Negative); Ketones,Urine 1+ (Negative); Leukocyte Esterase,Urine Small (Negative); Mucus,Urine Rare /hpf; Nitrite,Urine Negative (Negative); Protein,Urine 1+ (Negative); RBC,Urine >182 /hpf (0-5); Specific Gravity,Urine 1.031 (1.001-1.035); Squamous Epithelial Cell,Urine 1 /hpf (0-4); Urobilinogen,Urine <2.0 mg/dL (<2.0)
[2018-04-11 12:35] VITALS: BP 167/87; PULSE 83
[2018-04-13 10:38] LABS: Hemoglobin A1C 10.9 % (4.0-6.0)
== END 2018-04-11 12:33 | disposition home or self-care (01) ==
LOC: EC 09:37
DX: R10.11 Right upper quadrant pain (principal); R11.2 Nausea with vomiting, unspecified; E11.9 Type 2 diabetes mellitus without complications; Z79.4 Long term (current) use of insulin; Z79.899 Other long term (current) drug therapy
CPT/HCPCS: 99284; 96374; 96375; 96376; 96361 ×2; 36415; 80053; 82150; 82009; 83690; 85025; 81001; 81025; 83036; 76705; J2405

== ENCOUNTER 2018-04-25 11:06 | Emergency (ER) | payer OTHER ==
[2018-04-25 11:16] VITALS: BP 161/81; PULSE 110; RESP 18; TEMP 98.6
--- NOTE | 2018-04-25 11:59 | ED ---
General Adult HPI - General Chief complaint: Headache Stated complaint: Headache Time Seen by Provider: 04/25/18 11:26 Source: patient, RN notes reviewed Mode of arrival: ambulatory Limitations: no limitations - History of Present Illness Initial comments: Patient 23-year-old female presented to the emergency room today with chief complaint of neck pain. She admits that she slipped on the couch 4 days ago she woke up with this pain on the left side of the neck. She doesn't that it's worse with certain movements. She states that is causing headaches. She has a history of migraines. She denies anything unusual about these headaches. She denies any other questions or symptoms. Patient denies any recent fever, chills , shortness of breath, chest pain, back pain, abdominal pain, nausea or vomiting , numbness or tingling, or any other complaints. - Related Data Home Medications Medication Instructions Recorded Confirmed Insulin Aspart [NovoLOG] See Protocol SQ AC-TID PRN 11/18/16 01/01/18 Insulin Glargine [Lantus] 15 unit SQ HS 03/27/17 01/01/18 Albuterol Inhaler [Ventolin Hfa 2 puff INHALATION RT-Q6H PRN 01/01/18 01/01/18 Inhaler] Ibuprofen [Motrin] 1,200 mg PO DAILY PRN 01/01/18 01/01/18 Multivitamins, Thera [Multivitamin 1 tab PO DAILY 01/01/18 01/01/18 (formulary)] Previous Rx's Medication Instructions Recorded Ondansetron Odt [Zofran ODT] 4 mg PO Q8HR PRN #20 tab 04/11/18 Cyclobenzaprine [Flexeril] 10 mg PO TID #20 tab 04/25/18 Ibuprofen [Motrin] 600 mg PO Q6HR PRN #30 day 04/25/18 Allergies Allergy/AdvReac Type Severity Reaction Status Date / Time No Known Allergies Allergy Verified 04/25/18 11:16 Review of Systems ROS Statement: Those systems with pertinent positive or pertinent negative responses have been documented in the HPI. ROS Other: All systems not noted in ROS Statement are negative. Past Medical History Past Medical History: Diabetes Mellitus Additional Past Medical History / Comment(s): migraines History of Any Multi-Drug Resistant Organisms: None Reported Past Surgical History: No Surgical Hx Reported Past Psychological History: No Psychological Hx Reported Smoking Status: Never smoker Past Alcohol Use History: Rare Past Drug Use History: Marijuana General Exam - General Exam Comments Initial Comments: General: The patient is awake and alert, in no distress, and does not appear acutely ill. Eye: Pupils are equal, round and reactive to light, extra-ocular movements are intact. No nystagmus. There is normal conjunctiva bilaterally. No signs of icterus. Ears, nose, mouth and throat: There are moist mucous membranes and no oral lesions. Neck: The neck is supple, there is no tenderness or JVD. Cardiovascular: There is a regular rate and rhythm. No murmur, rub or gallop is appreciated. Respiratory: Lungs are clear to auscultation, respirations are non-labored, breath sounds are equal. No wheezes, stridor, rales, or rhonchi. Musculoskeletal: Patient shows good range of motion. She does have tenderness to the paravertebral area of the left side of cervical spine. No tenderness midline. Strength 5/5. Sensation intact. Pulses equal bilaterally 2+. Neurological: A&O x 3. CN II-XII intact, There are no obvious motor or sensory deficits. Coordination appears grossly intact. Speech is normal. Skin: Skin is warm and dry and no rashes or lesions are noted. Psychiatric: Cooperative, appropriate mood & affect, normal judgment. Limitations: no limitations Course Vital Signs 04/25/18 11:14 Temperature 98.6 F Pulse Rate 110 H Respiratory 18 Rate Blood Pressure 161/81 O2 Sat by Pulse 95 Oximetry Medical Decision Making - Medical Decision Making Patient's neck pain reproduced on exam. She does admit that she slept on a couch 4 days ago woke up with this pain. She states that it is causing her to have some headaches. Was discussed about treatment options here in emergency room. She is comfortable being discharged home with muscle relaxer and anti- inflammatories to try for her symptoms. Advised follow-up over the next 2 days return if symptoms increase or worsen. Disposition Clinical Impression: Cervical strain Disposition: HOME SELF-CARE Condition: Good Instructions: Cervical Strain (ED) Additional Instructions: Please use medication as discussed. Please follow-up with family doctor in the next 2 days of symptoms have not improved. Please return to emergency room if the symptoms increase or worsen or for any other concerns. Prescriptions: Cyclobenzaprine [Flexeril] 10 mg PO TID #20 tab Ibuprofen [Motrin] 600 mg PO Q6HR PRN #30 day PRN Reason: Pain Is patient prescribed a controlled substance at d/c from ED?: No Referrals: Radha Choi MD [Primary Care Provider] - 1-2 days Time of Disposition: 11:59
== END 2018-04-25 12:14 | disposition home or self-care (01) ==
LOC: EC 11:06
DX: S16.1XXA Strain of muscle, fascia and tendon at neck level, initial encounter (principal); R51 Headache; E11.9 Type 2 diabetes mellitus without complications; Z79.4 Long term (current) use of insulin; X58.XXXA Exposure to other specified factors, initial encounter; Y93.89 Activity, other specified
CPT/HCPCS: 99283

== ENCOUNTER 2018-06-19 00:03 | Emergency (ER) | payer OTHER ==
[2018-06-19] MEDS ORDERED: SODIUM CHLORIDE 0.9% 1,000 ML IV STA (01:45)
[2018-06-19] MEDS ORDERED: ACETAMINOPHEN TAB 500 MG TAB PO STA (01:46)
[2018-06-19 02:15] LABS: Basophils % (A) 0 %; Eosinophils # (A) 0.3 k/uL (0-0.7); Eosinophils % (A) 3 %; HCT 35.6 % (34.0-46.0); HGB 11.8 gm/dL (11.4-16.0); Lymphocytes # (A) 3.7 k/uL (1.0-4.8); Lymphocytes % (A) 40 %; MCH 25.6 pg (25.0-35.0); MCHC 33.1 g/dL (31.0-37.0); MCV 77.3 fL (80.0-100.0); Mean Platelet Volume 7.7; Monocytes # (A) 0.8 k/uL (0-1.0); Monocytes % (A) 8 %; Neutrophils # (A) 4.1 k/uL (1.3-7.7); Neutrophils % (A) 45 %; Platelet Count 317 k/uL (150-450); RBC 4.61 m/uL (3.80-5.40); RDW 12.9 % (11.5-15.5); WBC 9.1 k/uL (3.8-10.6)
[2018-06-19 02:16] LABS: Appearance,Urine Clear (Clear); Bilirubin,Urine Negative (Negative); Blood,Urine Negative (Negative); Color,Urine Yellow; Glucose,Urine (UA) 4+ (Negative); Ketones,Urine Negative (Negative); Leukocyte Esterase,Urine Negative (Negative); Nitrite,Urine Negative (Negative); PH, Urine 5.5 (5.0-8.0); Protein,Urine Trace (Negative); Specific Gravity,Urine 1.026 (1.001-1.035); Urobilinogen,Urine <2.0 mg/dL (<2.0)
[2018-06-19 02:24] LABS: ALT 43 U/L (9-52); AST 29 U/L (14-36); Albumin 3.9 g/dL (3.5-5.0); Alkaline Phosphatase 76 U/L (38-126); Amylase 47 U/L (30-110); Anion Gap 10 mmol/L; Blood Urea Nitrogen 12 mg/dL (7-17); Calcium 9.6 mg/dL (8.4-10.2); Carbon Dioxide 23 mmol/L (22-30); Chloride 103 mmol/L (98-107); Glucose 188 mg/dL (74-99); Lipase 52 U/L (23-300); Potassium 4.3 mmol/L (3.5-5.1); Sodium 136 mmol/L (137-145); Total Bilirubin 0.6 mg/dL (0.2-1.3)
--- NOTE | 2018-06-19 02:27 | ED ---
General Adult HPI - General Chief complaint: Abdominal Pain Stated complaint: Abd pain Time Seen by Provider: 06/19/18 01:32 Source: patient, RN notes reviewed Mode of arrival: ambulatory Limitations: no limitations - History of Present Illness Initial comments: 23-year-old female presents to the emergency determine for a chief complaint of lower abdominal pain 4 days. Patient states the pain has been constant. Patient denies pain coming and going. Patient states the pain is mostly right lower quadrant. Patient states she has been having diarrhea daily for the past 4 days. Patient denies vomiting but admits she has been nauseous. Patient states pain is worse when she urinates. Patient admits to a possibility of . Patient denies fevers or chills at home. Patient has no other complaints at this time including shortness of breath, chest pain, abdominal pain, nausea or vomiting, headache, or visual changes. - Related Data Home Medications Medication Instructions Recorded Confirmed Insulin Aspart [NovoLOG] See Protocol SQ AC-TID PRN 11/18/16 06/19/18 Insulin Glargine [Lantus] 15 unit SQ HS 03/27/17 06/19/18 Albuterol Inhaler [Ventolin Hfa 2 puff INHALATION RT-Q6H PRN 01/01/18 06/19/18 Inhaler] Previous Rx's Medication Instructions Recorded Cyclobenzaprine [Flexeril] 10 mg PO TID #20 tab 04/25/18 Ibuprofen [Motrin] 600 mg PO Q6HR PRN #30 day 04/25/18 Dicyclomine [Bentyl] 10 mg PO QID PRN #20 capsule 06/19/18 Allergies Allergy/AdvReac Type Severity Reaction Status Date / Time No Known Allergies Allergy Verified 06/19/18 00:17 Review of Systems ROS Statement: Those systems with pertinent positive or pertinent negative responses have been documented in the HPI. ROS Other: All systems not noted in ROS Statement are negative. Past Medical History Past Medical History: Diabetes Mellitus Additional Past Medical History / Comment(s): migraines History of Any Multi-Drug Resistant Organisms: None Reported Past Surgical History: No Surgical Hx Reported Past Psychological History: No Psychological Hx Reported Smoking Status: Never smoker Past Alcohol Use History: Rare Past Drug Use History: Marijuana General Exam Limitations: no limitations General appearance: alert, in no apparent distress Head exam: Present: atraumatic, normocephalic, normal inspection Eye exam: Present: normal appearance. Absent: scleral icterus, conjunctival injection ENT exam: Present: normal exam, mucous membranes moist Neck exam: Present: normal inspection, full ROM. Absent: tenderness, meningismus, lymphadenopathy Respiratory exam: Present: normal lung sounds bilaterally. Absent: respiratory distress, wheezes, rales, rhonchi, stridor Cardiovascular Exam: Present: regular rate, normal rhythm, normal heart sounds. Absent: systolic murmur, diastolic murmur, rubs, gallop, clicks GI/Abdominal exam: Present: soft, tenderness (Minimal right and left lower quadrant tenderness. No tenderness elsewhere in the abdomen. ), normal bowel sounds, other (Negative obturator sign. Negative psoas sign. ). Absent: distended, guarding, rebound, rigid Course Vital Signs 06/19/18 00:15 Temperature 98.4 F Pulse Rate 120 H Respiratory 20 Rate Blood Pressure 158/79 O2 Sat by Pulse 100 Oximetry Medical Decision Making - Medical Decision Making 23-year-old female presents to the emergency department for a chief complaint of lower abdominal pain 4 days. Patient states pain is been constant. No vomiting but patient has had diarrhea for the past 4 days. On exam patient is very minimal lower abdominal tenderness in the right and left lower quadrants. CBC CMP unremarkable. Urine has 4+ glucose, no evidence of infection. X-ray shows no sign of obstruction. Fecal pattern normal. Nonacute abdomen x-ray. Patient given Tylenol in the emergency department states she is feeling much better. Discussed the patient that if she does have worsening pain she is to return to the emergency department for additional testing. Patient agrees to this. She will follow up with primary care in 1-2 days. - Lab Data Result diagrams: 06/19/18 02:05 06/19/18 02:05 Lab Results 06/19/18 06/19/18 06/19/18 Range/Units 02:05 02:05 02:05 WBC 9.1 (3.8-10.6) k/uL RBC 4.61 (3.80-5.40) m/uL Hgb 11.8 (11.4-16.0) gm/dL Hct 35.6 (34.0-46.0) % MCV 77.3 L (80.0-100.0) fL MCH 25.6 (25.0-35.0) pg MCHC 33.1 (31.0-37.0) g/dL RDW 12.9 (11.5-15.5) % Plt Count 317 (150-450) k/uL Neutrophils % 45 % Lymphocytes % 40 % Monocytes % 8 % Eosinophils % 3 % Basophils % 0 % Neutrophils # 4.1 (1.3-7.7) k/uL Lymphocytes # 3.7 (1.0-4.8) k/uL Monocytes # 0.8 (0-1.0) k/uL Eosinophils # 0.3 (0-0.7) k/uL Basophils # 0.0 (0-0.2) k/uL Sodium 136 L (137-145) mmol/L Potassium 4.3 (3.5-5.1) mmol/L Chloride 103 (98-107) mmol/L Carbon Dioxide 23 (22-30) mmol/L Anion Gap 10 mmol/L BUN 12 (7-17) mg/dL Creatinine 0.40 L (0.52-1.04) mg/dL Est GFR (CKD-EPI)AfAm >90 (>60 ml/min/1.73 sqM) Est GFR (CKD-EPI)NonAf >90 (>60 ml/min/1.73 sqM) Glucose 188 H (74-99) mg/dL Calcium 9.6 (8.4-10.2) mg/dL Total Bilirubin 0.6 (0.2-1.3) mg/dL AST 29 (14-36) U/L ALT 43 (9-52) U/L Alkaline Phosphatase 76 (38-126) U/L Total Protein 7.0 (6.3-8.2) g/dL Albumin 3.9 (3.5-5.0) g/dL Amylase 47 (30-110) U/L Lipase 52 (23-300) U/L Urine Color Yellow Urine Appearance Clear (Clear) Urine pH 5.5 (5.0-8.0) Ur Specific [place] 1.026 (1.001-1.035) Urine Protein Trace H (Negative) Urine Glucose (UA) 4+ H (Negative) Urine Ketones Negative (Negative) Urine Blood Negative (Negative) Urine Nitrite Negative (Negative) Urine Bilirubin Negative (Negative) Urine Urobilinogen <2.0 (<2.0) mg/dL Ur Leukocyte Esterase Negative (Negative) Urine HCG, Qual (Not Detectd) 06/19/18 Range/Units 02:05 WBC (3.8-10.6) k/uL RBC (3.80-5.40) m/uL Hgb (11.4-16.0) gm/dL Hct (34.0-46.0) % MCV (80.0-100.0) fL MCH (25.0-35.0) pg MCHC (31.0-37.0) g/dL RDW (11.5-15.5) % Plt Count (150-450) k/uL Neutrophils % % Lymphocytes % % Monocytes % % Eosinophils % % Basophils % % Neutrophils # (1.3-7.7) k/uL Lymphocytes # (1.0-4.8) k/uL Monocytes # (0-1.0) k/uL Eosinophils # (0-0.7) k/uL Basophils # (0-0.2) k/uL Sodium (137-145) mmol/L Potassium (3.5-5.1) mmol/L Chloride (98-107) mmol/L Carbon Dioxide (22-30) mmol/L Anion Gap mmol/L BUN (7-17) mg/dL Creatinine (0.52-1.04) mg/dL Est GFR (CKD-EPI)AfAm (>60 ml/min/1.73 sqM) Est GFR (CKD-EPI)NonAf (>60 ml/min/1.73 sqM) Glucose (74-99) mg/dL Calcium (8.4-10.2) mg/dL Total Bilirubin (0.2-1.3) mg/dL AST (14-36) U/L ALT (9-52) U/L Alkaline Phosphatase (38-126) U/L Total Protein (6.3-8.2) g/dL Albumin (3.5-5.0) g/dL Amylase (30-110) U/L Lipase (23-300) U/L Urine Color Urine Appearance (Clear) Urine pH (5.0-8.0) Ur Specific [place] (1.001-1.035) Urine Protein (Negative) Urine Glucose (UA) (Negative) Urine Ketones (Negative) Urine Blood (Negative) Urine Nitrite (Negative) Urine Bilirubin (Negative) Urine Urobilinogen (<2.0) mg/dL Ur Leukocyte Esterase (Negative) Urine HCG, Qual Not Detected (Not Detectd) Disposition Clinical Impression: Abdominal pain, Diarrhea Disposition: HOME SELF-CARE Condition: Good Instructions: Acute Diarrhea (ED), Abdominal Pain (ED) Additional Instructions: Please take prescriptions as directed. Motrin or Tylenol for pain. Please follow-up with primary care in 1-2 days. If you have any worsening symptoms return to the emergency department immediately. Prescriptions: Dicyclomine [Bentyl] 10 mg PO QID PRN #20 capsule PRN Reason: Pain Is patient prescribed a controlled substance at d/c from ED?: No Referrals: Radha Choi MD [Primary Care Provider] - 1-2 days Time of Disposition: 03:46
--- NOTE | 2018-06-19 02:46 | XR ---
EXAMINATION TYPE: XR KUB DATE OF EXAM: 06/19/2018 COMPARISON: NONE HISTORY: Right lower quadrant pain TECHNIQUE: 2 upright views FINDINGS: There is no sign of intestinal obstruction or pneumoperitoneum. Fecal pattern is normal. Th ere are no pathologic calcifications over the kidneys. Lung bases are clear. IMPRESSION: Nonacute abdomen.
[2018-06-19 03:59] VITALS: BP 137/63; PULSE 101; RESP 16; TEMP 98.5
== END 2018-06-19 03:59 | disposition home or self-care (01) ==
LOC: EC 00:03
DX: R10.31 Right lower quadrant pain (principal); R19.7 Diarrhea, unspecified; R11.0 Nausea; E11.9 Type 2 diabetes mellitus without complications; Z79.4 Long term (current) use of insulin
CPT/HCPCS: 36415; 74018; 80053; 81003; 81025; 82150; 83690; 85025; 87086; 96360; 96361; 99284

== ENCOUNTER 2018-06-28 21:32 | Emergency (ER) | payer OTHER ==
[2018-06-28 21:50] VITALS: TEMP 98.6
[2018-06-28 23:49] LABS: Appearance,Urine Turbid (Clear); Bilirubin,Urine Negative (Negative); Blood,Urine Large (Negative); Color,Urine Yellow; Glucose,Urine (UA) 2+ (Negative); Ketones,Urine Trace (Negative); Leukocyte Esterase,Urine Large (Negative); Mucus,Urine Moderate /hpf; Nitrite,Urine Negative (Negative); PH, Urine 5.5 (5.0-8.0); Protein,Urine 2+ (Negative); RBC,Urine 145 /hpf (0-5); Specific Gravity,Urine 1.018 (1.001-1.035); Squamous Epithelial Cell,Urine 7 /hpf (0-4); WBC,Urine >182 /hpf (0-5)
[2018-06-28] MEDS ORDERED: PHENAZOPYRIDINE 200 MG TAB PO STA (23:55)
[2018-06-28] MEDS ORDERED: SULFAMETH-TMP DS STARTER PACK 2 TAB BTL PO STA (23:55)
--- NOTE | 2018-06-28 23:56 | ED ---
Abdominal Pain HPI - General Chief Complaint: Abdominal Pain Stated Complaint: poss bladder infection Time Seen by Provider: 06/28/18 23:33 Source: patient Mode of arrival: ambulatory Limitations: no limitations - History of Present Illness Initial Comments: 23-year-old female patient presents the emergency department today with complaints of dysuria, suprapubic pressure, and urinary frequency. Patient states that she has been having the symptoms for the last 2 days and is concerned she may have a urinary tract infection. Denies any history of frequent infections. She denies any flank pain, back pain, vomiting, abdominal pain, fever, or chills. States that she has been mildly nauseated. Denies any chance of , states that she is not currently sexually active. Patient denies any recent rash, diarrhea, constipation, dizziness, weakness, headache, visual changes, or any other complaints. - Related Data Home Medications Medication Instructions Recorded Confirmed Insulin Aspart [NovoLOG] See Protocol SQ AC-TID PRN 11/18/16 06/28/18 Insulin Glargine [Lantus] 15 unit SQ HS 03/27/17 06/28/18 Multivitamins, Thera [Multivitamin 1 tab PO DAILY 06/28/18 06/28/18 (formulary)] Previous Rx's Medication Instructions Recorded Phenazopyridine HCl [Pyridium] 100 mg PO TID #9 tab 06/28/18 Sulfamethoxazole/Trimethoprim 1 each PO BID #20 tablet 06/28/18 [Bactrim DS 800-160 mg] Allergies Allergy/AdvReac Type Severity Reaction Status Date / Time No Known Allergies Allergy Verified 06/28/18 23:36 Review of Systems ROS Statement: Those systems with pertinent positive or pertinent negative responses have been documented in the HPI. ROS Other: All systems not noted in ROS Statement are negative. Past Medical History Past Medical History: Diabetes Mellitus Additional Past Medical History / Comment(s): migraines History of Any Multi-Drug Resistant Organisms: None Reported Past Surgical History: No Surgical Hx Reported Past Psychological History: No Psychological Hx Reported Smoking Status: Never smoker Past Alcohol Use History: Rare Past Drug Use History: Marijuana General Exam Limitations: no limitations General appearance: alert, in no apparent distress, other (This is a well- developed, well-nourished adult female patient in no acute distress. Vital signs upon presentation are temperature 98.6F, pulse 109, respirations 20, blood pressure 150/80, pulse ox 99% on room air.) Eye exam: Present: normal appearance, PERRL, EOMI. Absent: scleral icterus, conjunctival injection, periorbital swelling ENT exam: Present: normal exam, normal oropharynx, mucous membranes moist Respiratory exam: Present: normal lung sounds bilaterally. Absent: respiratory distress, wheezes, rales, rhonchi, stridor Cardiovascular Exam: Present: regular rate, normal rhythm, normal heart sounds. Absent: systolic murmur, diastolic murmur, rubs, gallop, clicks GI/Abdominal exam: Present: soft, normal bowel sounds. Absent: distended, tenderness, guarding, rebound, rigid Back exam: Present: normal inspection. Absent: CVA tenderness (R), CVA tenderness (L) Neurological exam: Present: alert, oriented X3, CN II-XII intact Psychiatric exam: Present: normal affect, normal mood Skin exam: Present: warm, dry, intact, normal color. Absent: rash Course Vital Signs 06/28/18 06/29/18 21:48 00:26 Temperature 98.6 F 98.6 F Pulse Rate 109 H 74 Respiratory 20 17 Rate Blood Pressure 150/80 140/71 O2 Sat by Pulse 99 100 Oximetry Medical Decision Making - Medical Decision Making 23-year-old female patient presents the emergency department today for complaints of dysuria, suprapubic pressure, and urinary frequency. Urinalysis was obtained and showed a turbid appearance with 2+ protein, 2+ glucose, trace ketones, large amount of blood, large leukocyte esterase, 145 red blood cells, greater than 182 white blood cells, 7 squamous epithelial cells, and moderate mucus. HCG was negative. Patient does have a history of diabetes. Patient will be discharged home with prescription for Bactrim and Pyridium. She is instructed to increase fluids. She is instructed to follow-up with her primary care physician for recheck in 1-2 days. Return parameters discussed in detail. Patient is discharged in stable condition. She verbalizes understanding and agrees with this plan. - Lab Data Lab Results 06/28/18 06/28/18 Range/Units 23:20 23:20 Urine Color Yellow Urine Appearance Turbid H (Clear) Urine pH 5.5 (5.0-8.0) Ur Specific [place] 1.018 (1.001-1.035) Urine Protein 2+ H (Negative) Urine Glucose (UA) 2+ H (Negative) Urine Ketones Trace H (Negative) Urine Blood Large H (Negative) Urine Nitrite Negative (Negative) Urine Bilirubin Negative (Negative) Urine Urobilinogen 2.0 (<2.0) mg/dL Ur Leukocyte Esterase Large H (Negative) Urine RBC 145 H (0-5) /hpf Urine WBC >182 H (0-5) /hpf Ur Squamous Epith Cells 7 H (0-4) /hpf Urine Mucus Moderate H (None) /hpf Urine HCG, Qual Not Detected (Not Detectd) Disposition Clinical Impression: Urinary tract infection Disposition: HOME SELF-CARE Condition: Good Instructions: Urinary Tract Infection in Women (ED) Additional Instructions: Increase fluids including water and cranberry juice. Take medications as directed. Complete antibiotic prescription in full. Follow-up with your primary care physician for recheck, have repeat urinary testing performed once antibiotics are complete when she clearance of infection. Return here immediately for any new, worsening, or concerning symptoms. Prescriptions: Phenazopyridine HCl [Pyridium] 100 mg PO TID #9 tab Sulfamethoxazole/Trimethoprim [Bactrim DS 800-160 mg] 1 each PO BID #20 tablet Is patient prescribed a controlled substance at d/c from ED?: No Referrals: Radha Choi MD [Primary Care Provider] - 1-2 days Time of Disposition: 23:56
[2018-06-29 00:29] VITALS: BP 140/71; PULSE 74; RESP 17
== END 2018-06-29 00:29 | disposition home or self-care (01) ==
LOC: EC 21:32
DX: N39.0 Urinary tract infection, site not specified (principal); E11.9 Type 2 diabetes mellitus without complications; Z79.4 Long term (current) use of insulin
CPT/HCPCS: 81001; 81025; 87086; 99284

== ENCOUNTER 2018-09-28 15:43 | Emergency (ER) | payer OTHER ==
[2018-09-28 15:47] VITALS: BP 162/86; TEMP 98.6
[2018-09-28] MEDS ORDERED: IPRATROPIUM-ALBUTEROL 3 ML NEB INHALATION STA (17:24)
--- NOTE | 2018-09-28 17:25 | ED ---
General Adult HPI - General Chief complaint: Shortness of Breath Stated complaint: asthma Time Seen by Provider: 09/28/18 16:00 Source: patient, RN notes reviewed Mode of arrival: ambulatory Limitations: no limitations - History of Present Illness Initial comments: This is a 23-year-old female presents emergency department stating that she's been short of breath since yesterday. Patient states she's also had a cough positive sputum production. Patient states the sputum color yellow. Patient denies any fever chills per patient denies any chest pain. Patient denies any abdominal pain patient states yesterday she did vomit a couple times however. Patient denies any control pills. Patient denies any calf pain patient denies any leg swelling. Patient denies any headache. Patient denies any lightheadedness or dizziness. - Related Data Home Medications Medication Instructions Recorded Confirmed Insulin Aspart [NovoLOG] See Protocol SQ AC-TID PRN 11/18/16 09/28/18 Insulin Glargine [Lantus] 15 unit SQ HS 03/27/17 09/28/18 Multivitamins, Thera [Multivitamin 1 tab PO DAILY 06/28/18 09/28/18 (formulary)] Previous Rx's Medication Instructions Recorded Albuterol Inhaler [Ventolin Hfa 1 - 2 puff INHALATION Q6HR PRN #2 09/28/18 Inhaler] puff Azithromycin [Zithromax Tri-Wan] 500 mg PO DAILY #3 tab 09/28/18 Allergies Allergy/AdvReac Type Severity Reaction Status Date / Time No Known Allergies Allergy Verified 09/28/18 17:13 Review of Systems ROS Statement: Those systems with pertinent positive or pertinent negative responses have been documented in the HPI. ROS Other: All systems not noted in ROS Statement are negative. Past Medical History Past Medical History: Asthma, Diabetes Mellitus Additional Past Medical History / Comment(s): migraines History of Any Multi-Drug Resistant Organisms: None Reported Past Surgical History: No Surgical Hx Reported Past Psychological History: No Psychological Hx Reported Smoking Status: Never smoker Past Alcohol Use History: Rare Past Drug Use History: Marijuana General Exam - General Exam Comments Initial Comments: GENERAL: Patient is well-developed and well-nourished. Patient is nontoxic and well- hydrated and is in mild distress. ENT: Neck is soft and supple. No significant lymphadenopathy is noted. Oropharynx is clear. Moist mucous membranes. Neck has full range of motion without eliciting any pain. EYES: The sclera were anicteric and conjunctiva were pink and moist. Extraocular movements were intact and pupils were equal round and reactive to light. Eyelids were unremarkable. PULMONARY: Patient is a slight expiratory wheeze bilaterally CARDIOVASCULAR: There is a regular rate and rhythm without any murmurs gallops or rubs. ABDOMEN: Soft and nontender with normal bowel sounds. SKIN: Skin is clear with no lesions or rashes and otherwise unremarkable. NEUROLOGIC: Patient is alert and oriented x3. Cranial nerves II through XII are grossly intact. Motor and sensory are also intact. Normal speech, volume and content. Symmetrical smile. MUSCULOSKELETAL: Normal extremities with adequate strength and full range of motion. No lower extremity swelling or edema. No calf tenderness. LYMPHATICS: No significant lymphadenopathy is noted PSYCHIATRIC: Normal psychiatric evaluation. Normal interpersonal interactions appears functionally intact in deals appropriately with others. No signs of depression. No signs of anxiety. Limitations: no limitations Course Vital Signs 09/28/18 09/28/18 09/28/18 15:45 17:34 17:42 Temperature 98.6 F Pulse Rate 88 80 81 Respiratory 20 16 16 Rate Blood Pressure 162/86 O2 Sat by Pulse 99 Oximetry Medical Decision Making - Medical Decision Making Chest x-ray shows bronchitis. Patient had a breathing treatment in the emergency department felt considerably better. Because the patient was coughing up a considerable amount of yellow sputum I gave the patient a shot of Rocephin and Zithromax emergency department I will send the patient home with Zithromax. Patient will also receive a prescription for an inhaler Disposition Clinical Impression: Bronchitis with bronchospasm Disposition: HOME SELF-CARE Condition: Good Instructions: Bronchospasm (ED), Acute Bronchitis (ED) Prescriptions: Albuterol Inhaler [Ventolin Hfa Inhaler] 1 - 2 puff INHALATION Q6HR PRN #2 puff PRN Reason: Difficulty breathing Azithromycin [Zithromax Tri-Wan] 500 mg PO DAILY #3 tab Is patient prescribed a controlled substance at d/c from ED?: No Referrals: Radha Choi MD [Primary Care Provider] - 1-2 days Time of Disposition: 18:43
[2018-09-28 17:36] VITALS: RESP 16
[2018-09-28 17:43] VITALS: PULSE 81
--- NOTE | 2018-09-28 18:37 | XR ---
EXAMINATION: XR chest 2V DATE AND TIME: 09/28/2018 6:02 PM CLINICAL INDICATION: Difficulty breathing TECHNIQUE: PA and lateral COMPARISON: Radiograph 12/02/2017 FINDINGS: The lungs are inflated. They show bilateral perihilar silhouetting of the pulmonary vasculature, grea ter on the right. This has the appearance of peribronchial interstitial prominence and can correlate with bronchitis or early bronchopneumonia. There are no consolidative lung opacities. The pleural spaces are negative. The cardiac silhouette is not enlarged. The remainder of the mediastinal silhouette is unremarkable. The skeletal structures and soft tissues are negative for acute findings. IMPRESSION: Bilateral perihilar shadows, which can correlate with a clinical diagnosis of bronchitis/early bronch opneumonia.
[2018-09-28] MEDS ORDERED: AZITHROMYCIN 500 MG TAB PO STA (18:42)
[2018-09-28] MEDS ORDERED: cefTRIAXone 1,000 MG VIAL (IM USE) IM STA (18:57)
== END 2018-09-28 19:16 | disposition home or self-care (01) ==
LOC: EC 15:43
DX: J40 Bronchitis, not specified as acute or chronic (principal); J98.01 Acute bronchospasm; E11.9 Type 2 diabetes mellitus without complications; Z79.4 Long term (current) use of insulin
CPT/HCPCS: 94640; 71046; 99285; 96372; J0696

== ENCOUNTER 2018-11-25 11:54 | Emergency (ER) | payer OTHER ==
[2018-11-25] MEDS ORDERED: ONDANSETRON 4 MG ODT STARTER PACK 2 TAB BTL PO STA (12:07)
--- NOTE | 2018-11-25 12:09 | ED ---
Nausea/Vomiting/Diarrhea HPI - General Chief complaint: Nausea/Vomiting/Diarrhea Stated complaint: abdominal/throat pain & vomiting Time Seen by Provider: 11/25/18 12:01 Source: patient, RN notes reviewed, old records reviewed Mode of arrival: wheelchair Limitations: no limitations - History of Present Illness Initial comments: This patient's a 23-year-old female who presents today with 1 day of nausea and vomiting. She reports that she's had a sore throat the past 3 days. Patient arrives to emergency department hurling. She is a diabetic. She states that she has just been dry heaving. - Related Data Home Medications Medication Instructions Recorded Confirmed Insulin Aspart [NovoLOG] See Protocol SQ AC-TID PRN 11/18/16 11/25/18 Insulin Glargine [Lantus] 15 unit SQ HS 03/27/17 11/25/18 Multivitamins, Thera [Multivitamin 1 tab PO DAILY 06/28/18 11/25/18 (formulary)] Albuterol Inhaler [Ventolin Hfa 1 - 2 puff INHALATION RT-Q6H PRN 11/25/18 Inhaler] Previous Rx's Medication Instructions Recorded Azithromycin 250 mg PO DAILY #6 tablet 11/25/18 Ondansetron Odt [Zofran Odt] 4 mg PO Q8HR PRN #20 tab 11/25/18 Allergies Allergy/AdvReac Type Severity Reaction Status Date / Time No Known Allergies Allergy Verified 11/25/18 12:11 Review of Systems ROS Statement: Those systems with pertinent positive or pertinent negative responses have been documented in the HPI. ROS Other: All systems not noted in ROS Statement are negative. Past Medical History Past Medical History: Asthma, Diabetes Mellitus Additional Past Medical History / Comment(s): migraines History of Any Multi-Drug Resistant Organisms: None Reported Past Surgical History: No Surgical Hx Reported Past Psychological History: No Psychological Hx Reported Smoking Status: Never smoker Past Alcohol Use History: Rare Past Drug Use History: Marijuana General Exam - General Exam Comments Initial Comments: 21-year-old female. Patient is dry heaving. Difficult to examine due to retching. Limitations: no limitations General appearance: alert, in no apparent distress Head exam: Present: atraumatic, normocephalic, normal inspection Eye exam: Present: normal appearance, PERRL, EOMI. Absent: scleral icterus, conjunctival injection, periorbital swelling ENT exam: Present: normal exam, normal oropharynx, mucous membranes moist, other (erythematous bulging tonsils. Exudates. Patient has no tonsilar abscess. ) Neck exam: Present: normal inspection. Absent: tenderness, meningismus, lymphadenopathy Respiratory exam: Present: normal lung sounds bilaterally. Absent: respiratory distress, wheezes, rales, rhonchi, stridor Cardiovascular Exam: Present: regular rate, normal rhythm, normal heart sounds. Absent: systolic murmur, diastolic murmur, rubs, gallop, clicks GI/Abdominal exam: Present: soft, normal bowel sounds. Absent: distended, tenderness, guarding, rebound, rigid Extremities exam: Present: normal inspection, full ROM, normal capillary refill. Absent: tenderness, pedal edema, joint swelling, calf tenderness Back exam: Present: normal inspection Neurological exam: Present: alert, oriented X3, CN II-XII intact Psychiatric exam: Present: normal affect, normal mood Skin exam: Present: warm, dry, intact, normal color. Absent: rash Course Vital Signs 11/25/18 11:55 Temperature 98.8 F Pulse Rate 90 Respiratory 20 Rate Blood Pressure 172/97 O2 Sat by Pulse 99 Oximetry Medical Decision Making - Medical Decision Making Patient is a 21-year-old female presents today with 1 day of vomiting. She also complains of 3 days of sore throat. She has had erythematous and edematous tonsils with x-rays. Rapid strep was negative. Patient came to emergency department retching. She is given ODT Zofran. She is reevaluated afterwards resting comfortably in bed. She was receiving IV fluids. Her lab work was obtained and unremarkable. No signs of DKA. feels better after receiving the Zofran and will be discharged at this time with close follow-up with primary care provider. Will discharge Patient with Zofran. We'll cover for bacterial pharyngitis due to clinical presentation with azithromycin. Discussed close follow-up with primary care physician. Questions answered return parameters were discussed. - Lab Data Result diagrams: 11/25/18 12:50 11/25/18 12:50 Lab Results 11/25/18 11/25/18 11/25/18 Range/Units 12:30 12:50 12:50 WBC 10.7 H (3.8-10.6) k/uL RBC 4.64 (3.80-5.40) m/uL Hgb 12.8 (11.4-16.0) gm/dL Hct 37.1 (34.0-46.0) % MCV 80.0 (80.0-100.0) fL MCH 27.7 (25.0-35.0) pg MCHC 34.6 (31.0-37.0) g/dL RDW 13.5 (11.5-15.5) % Plt Count 308 (150-450) k/uL Neutrophils % 67 % Lymphocytes % 21 % Monocytes % 6 % Eosinophils % 3 % Basophils % 0 % Neutrophils # 7.2 (1.3-7.7) k/uL Lymphocytes # 2.2 (1.0-4.8) k/uL Monocytes # 0.7 (0-1.0) k/uL Eosinophils # 0.4 (0-0.7) k/uL Basophils # 0.0 (0-0.2) k/uL Sodium 139 (137-145) mmol/L Potassium 4.5 (3.5-5.1) mmol/L Chloride 107 (98-107) mmol/L Carbon Dioxide 22 (22-30) mmol/L Anion Gap 10 mmol/L BUN 7 (7-17) mg/dL Creatinine 0.26 L (0.52-1.04) mg/dL Est GFR (CKD-EPI)AfAm >90 (>60 ml/min/1.73 sqM) Est GFR (CKD-EPI)NonAf >90 (>60 ml/min/1.73 sqM) Glucose 133 H (74-99) mg/dL Calcium 9.6 (8.4-10.2) mg/dL Acetone, Qual Negative (Negative) Group A Strep Rapid Negative (Negative) Disposition Clinical Impression: Nausea & vomiting, Pharyngitis Disposition: HOME SELF-CARE Condition: Good Instructions: Acute Nausea and Vomiting (ED) Additional Instructions: Patient advised to follow-up with primary care physician. Return to emergency department if any alarming signs or symptoms occur. His the nausea medicine as prescribed. Prescriptions: Azithromycin 250 mg PO DAILY #6 tablet Ondansetron Odt [Zofran Odt] 4 mg PO Q8HR PRN #20 tab PRN Reason: Nausea Is patient prescribed a controlled substance at d/c from ED?: No Referrals: Radha Choi MD [Primary Care Provider] - 1-2 days Time of Disposition: 14:11
[2018-11-25] MEDS ORDERED: SODIUM CHLORIDE 0.9% 1,000 ML IV ONE (12:16)
[2018-11-25] MEDS ORDERED: SODIUM CHLORIDE 0.9% 1,000 ML IV SCH (12:30)
[2018-11-25 13:16] LABS: Basophils % (A) 0 %; Eosinophils # (A) 0.4 k/uL (0-0.7); Eosinophils % (A) 3 %; HCT 37.1 % (34.0-46.0); HGB 12.8 gm/dL (11.4-16.0); Lymphocytes # (A) 2.2 k/uL (1.0-4.8); Lymphocytes % (A) 21 %; MCH 27.7 pg (25.0-35.0); MCHC 34.6 g/dL (31.0-37.0); Mean Platelet Volume 7.7; Monocytes # (A) 0.7 k/uL (0-1.0); Monocytes % (A) 6 %; Neutrophils # (A) 7.2 k/uL (1.3-7.7); Neutrophils % (A) 67 %; Platelet Count 308 k/uL (150-450); RBC 4.64 m/uL (3.80-5.40); RDW 13.5 % (11.5-15.5); WBC 10.7 k/uL (3.8-10.6)
[2018-11-25 13:25] LABS: Anion Gap 10 mmol/L; Blood Urea Nitrogen 7 mg/dL (7-17); Calcium 9.6 mg/dL (8.4-10.2); Carbon Dioxide 22 mmol/L (22-30); Chloride 107 mmol/L (98-107); Glucose 133 mg/dL (74-99); Sodium 139 mmol/L (137-145)
[2018-11-25 13:34] LABS: Potassium 4.5 mmol/L (3.5-5.1)
[2018-11-25 14:34] VITALS: BP 162/84; PULSE 85; RESP 18; TEMP 98.1
== END 2018-11-25 14:34 | disposition home or self-care (01) ==
LOC: EC 11:54
DX: J02.9 Acute pharyngitis, unspecified (principal); R11.2 Nausea with vomiting, unspecified; E11.9 Type 2 diabetes mellitus without complications; J45.909 Unspecified asthma, uncomplicated; Z79.4 Long term (current) use of insulin; Z79.899 Other long term (current) drug therapy
CPT/HCPCS: 36415; 80048; 82009; 85025; 87081; 87430; 99284; 96360; 96361; S0119

== ENCOUNTER 2019-01-30 18:23 | Emergency (ER) | payer OTHER ==
[2019-01-30 18:29] VITALS: BP 139/73; TEMP 98.2
[2019-01-30] MEDS ORDERED: DEXAMETHASONE SOD PHOSPHATE 10 MG/ML 1 ML VIAL IM STA (19:07)
--- NOTE | 2019-01-30 19:10 | ED ---
ENT HPI - General Chief complaint: ENT Stated complaint: Choking feeling Time Seen by Provider: 01/30/19 18:41 Source: patient Mode of arrival: ambulatory Limitations: no limitations - History of Present Illness Initial comments: 24-year-old female patient presents to the emergency department today for evaluation of throat swelling. Patient states that this started 2-3 days ago. Patient states that she was diagnosed with hypothyroid has been feeling a fullness in her neck for the last several months. Patient is unsure if this is related. She denies any fevers or chills with this. States that her throat is irritated. The states that her voice sounds different. She denies any nasal congestion or cough. Patient denies any recent rash, shortness breath, chest pain, abdominal pain, nausea, vomiting, diarrhea, constipation, back pain, numbness, tingling, dizziness, weakness, hematuria, dysuria, urinary urgency, urinary frequency, headache, visual changes, or any other complaints. Patient is requesting a test. - Related Data Home Medications Medication Instructions Recorded Confirmed INSULIN ASPART (NovoLOG) [NovoLOG] See Protocol SQ AC-TID PRN 11/18/16 11/25/18 Insulin Glargine [Lantus] 15 unit SQ HS 03/27/17 11/25/18 Multivitamins, Thera [Multivitamin 1 tab PO DAILY 06/28/18 11/25/18 (formulary)] Albuterol Inhaler [Ventolin Hfa 1 - 2 puff INHALATION RT-Q6H PRN 11/25/18 11/25/18 Inhaler] Previous Rx's Medication Instructions Recorded Azithromycin 250 mg PO DAILY #6 tablet 11/25/18 Ondansetron Odt [Zofran Odt] 4 mg PO Q8HR PRN #20 tab 11/25/18 predniSONE 50 mg PO DAILY #5 tablet 01/30/19 Allergies Allergy/AdvReac Type Severity Reaction Status Date / Time No Known Allergies Allergy Verified 01/30/19 18:29 Review of Systems ROS Statement: Those systems with pertinent positive or pertinent negative responses have been documented in the HPI. ROS Other: All systems not noted in ROS Statement are negative. Past Medical History Past Medical History: Asthma, Diabetes Mellitus Additional Past Medical History / Comment(s): migraines History of Any Multi-Drug Resistant Organisms: None Reported Past Surgical History: No Surgical Hx Reported Past Psychological History: No Psychological Hx Reported Smoking Status: Never smoker Past Alcohol Use History: Rare Past Drug Use History: Marijuana General Exam Limitations: no limitations General appearance: alert, in no apparent distress, other (Physical well- developed, well-nourished adult female patient in no acute distress. Vital signs upon presentation are temperature 98.2F, pulse 100, respirations 18, blood pressure 139/73, pulse ox 97% on room air.) Eye exam: Present: normal appearance, PERRL, EOMI. Absent: scleral icterus, conjunctival injection, periorbital swelling ENT exam: Present: mucous membranes moist, TM's normal bilaterally. Absent: normal exam, normal oropharynx (Pharyngeal erythema, tonsillar exudate noted, tonsillar hypertrophy) Neck exam: Present: lymphadenopathy (Anterior cervical). Absent: normal inspection, tenderness, meningismus Respiratory exam: Present: normal lung sounds bilaterally. Absent: respiratory distress, wheezes, rales, rhonchi, stridor Cardiovascular Exam: Present: regular rate, normal rhythm, normal heart sounds. Absent: systolic murmur, diastolic murmur, rubs, gallop, clicks GI/Abdominal exam: Present: soft, normal bowel sounds. Absent: distended, tenderness, guarding, rebound, rigid Neurological exam: Present: alert, oriented X3, CN II-XII intact Psychiatric exam: Present: normal affect, normal mood Skin exam: Present: warm, dry, intact, normal color. Absent: rash Course Vital Signs 01/30/19 01/30/19 18:24 21:27 Temperature 98.2 F Pulse Rate 100 90 Respiratory 18 14 Rate Blood Pressure 139/73 O2 Sat by Pulse 97 99 Oximetry Medical Decision Making - Medical Decision Making 24-year-old female patient presents to the emergency department today for evaluation of throat fullness. States it was giving her difficulty swallowing and breathing. Physical examination did reveal tonsillar hypertrophy with exudate and erythema. She is afebrile. Some mild anterior cervical lymp hadenopathy. Soft tissue x-ray was performed and showed no acute abnormalities. She is negative for strep. She was given a dose of Decadron here in the emergency department. Upon reevaluation patient states she is feeling improved. She is instructed to follow-up with the ENT specialist for further evaluation of this is second episode of similar symptoms. She is instructed to return immediately for any new, worsening, or concerning symptoms. She verbalizes understanding and agrees with this plan. - Lab Data Lab Results 01/30/19 01/30/19 Range/Units 19:00 19:00 Urine HCG, Qual Not Detected (Not Detectd) Group A Strep Rapid Negative (Negative) - Radiology Data Radiology results: report reviewed, image reviewed Two-view x-ray of the soft tissue of the neck was performed. Report was reviewed in its entirety. Impression by Dr. Mustafa shows negative cervical soft tissue exam. Disposition Clinical Impression: Tonsillitis Disposition: HOME SELF-CARE Condition: Good Instructions (If sedation given, give patient instructions): Tonsillitis (ED) Additional Instructions: Complete medications as directed. Gargle with salt water. Follow-up with the ear, nose, throat specialist for recheck as soon as possible. Return to the emergency department immediately for any new, worsening, or concerning symptoms. Prescriptions: predniSONE 50 mg PO DAILY #5 tablet Is patient prescribed a controlled substance at d/c from ED?: No Referrals: Radha Choi MD [Primary Care Provider] - 1-2 days Payam Howard DO [Doctor of Osteopathic Medicine] - 1-2 days Time of Disposition: 21:21
--- NOTE | 2019-01-30 20:55 | XR ---
EXAMINATION TYPE: XR soft tissue neck DATE OF EXAM: 01/30/2019 COMPARISON: NONE HISTORY: Dyspnea TECHNIQUE: 2 views FINDINGS: Epiglottis is normal. Subglottic trachea appears normal. Prevertebral soft tissues are not enlarged. Tonsils and adenoids appear within normal limits. IMPRESSION: Negative cervical soft tissue exam.
[2019-01-30 21:28] VITALS: PULSE 90; RESP 14
== END 2019-01-30 21:28 | disposition home or self-care (01) ==
LOC: EC 18:23
DX: J03.90 Acute tonsillitis, unspecified (principal); J45.909 Unspecified asthma, uncomplicated; E11.9 Type 2 diabetes mellitus without complications; Z79.4 Long term (current) use of insulin
CPT/HCPCS: 81025; 87081; 87430; 70360; 99283; 96372; J1100

== ENCOUNTER 2019-04-10 10:37 | Emergency (ER) | payer OTHER ==
[2019-04-10 10:44] VITALS: RESP 16; TEMP 98.3
[2019-04-10] MEDS ORDERED: SODIUM CHLORIDE 0.9% 2,000 ML IV STA (10:57)
[2019-04-10] MEDS ORDERED: ONDANSETRON 4 MG/2 ML VIAL IVP STA (10:57)
--- NOTE | 2019-04-10 11:15 | ED ---
Abdominal Pain HPI - General Chief Complaint: Abdominal Pain Stated Complaint: vomiting, abdominal pain Time Seen by Provider: 04/10/19 10:56 Source: patient, RN notes reviewed Mode of arrival: ambulatory Limitations: no limitations - History of Present Illness Initial Comments: 24-year-old female presents emergency Department with chief complaint of ab dominal cramping, nausea vomiting . Patient states she is approximately 11 weeks A0 seen [facility] out of [place] as she is a high-risk . Patient denies any dysuria or hematuria but states her urine has been dark and was told that she had protein in her urine and that she was dehydrated. Patient denies any vaginal bleeding or vaginal discharge at this time. - Related Data Home Medications Medication Instructions Recorded Confirmed INSULIN ASPART (NovoLOG) [NovoLOG] See Protocol SQ AC-TID PRN 11/18/16 03/08/19 Insulin Glargine [Lantus] 15 unit SQ HS 03/27/17 03/08/19 Multivitamins, Thera [Multivitamin 1 tab PO DAILY 06/28/18 03/08/19 (formulary)] Albuterol Inhaler [Ventolin Hfa 1 - 2 puff INHALATION RT-Q6H PRN 11/25/18 03/08/19 Inhaler] Previous Rx's Medication Instructions Recorded Azithromycin 250 mg PO DAILY #6 tablet 11/25/18 Ondansetron Odt [Zofran Odt] 4 mg PO Q8HR PRN #20 tab 11/25/18 Cephalexin [Keflex] 500 mg PO Q8HR #21 cap 04/10/19 Allergies Allergy/AdvReac Type Severity Reaction Status Date / Time No Known Allergies Allergy Verified 03/08/19 14:47 Review of Systems ROS Statement: Those systems with pertinent positive or pertinent negative responses have been documented in the HPI. ROS Other: All systems not noted in ROS Statement are negative. Past Medical History Past Medical History: Asthma, Diabetes Mellitus Additional Past Medical History / Comment(s): migraines History of Any Multi-Drug Resistant Organisms: None Reported Past Surgical History: No Surgical Hx Reported Past Psychological History: Anxiety Smoking Status: Never smoker Past Alcohol Use History: None Reported Past Drug Use History: None Reported General Exam Limitations: no limitations General appearance: alert, in no apparent distress Head exam: Present: atraumatic, normocephalic, normal inspection Respiratory exam: Present: normal lung sounds bilaterally. Absent: respiratory distress, wheezes, rales, rhonchi, stridor Cardiovascular Exam: Present: regular rate, normal rhythm, normal heart sounds. Absent: systolic murmur, diastolic murmur, rubs, gallop, clicks GI/Abdominal exam: Present: soft, normal bowel sounds. Absent: distended, tenderness, guarding, rebound, rigid Back exam: Absent: CVA tenderness (R), CVA tenderness (L) Skin exam: Present: warm, dry, intact, normal color. Absent: rash Course Vital Signs 04/10/19 10:41 Temperature 98.3 F Pulse Rate 92 Respiratory 16 Rate Blood Pressure 139/75 O2 Sat by Pulse 98 Oximetry Medical Decision Making - Medical Decision Making 24-year-old female presented for abdominal pain, nausea vomiting in . Patient ultrasound does not reveal any comp eating fractures. Patient does have evidence of urinary tract infection was given Rocephin emergency department. Patient we discharged on Keflex advised to increase her fluid intake and follow-up with [facility]. - Lab Data Result diagrams: 04/10/19 11:00 04/10/19 11:00 Lab Results 04/10/19 04/10/19 04/10/19 Range/Units 11:00 11:00 11:00 WBC 6.9 (3.8-10.6) k/uL RBC 3.81 (3.80-5.40) m/uL Hgb 10.7 L (11.4-16.0) gm/dL Hct 31.3 L (34.0-46.0) % MCV 82.1 (80.0-100.0) fL MCH 28.1 (25.0-35.0) pg MCHC 34.2 (31.0-37.0) g/dL RDW 14.2 (11.5-15.5) % Plt Count 299 (150-450) k/uL Neutrophils % 69 % Lymphocytes % 19 % Monocytes % 5 % Eosinophils % 5 % Basophils % 1 % Neutrophils # 4.8 (1.3-7.7) k/uL Lymphocytes # 1.3 (1.0-4.8) k/uL Monocytes # 0.3 (0-1.0) k/uL Eosinophils # 0.3 (0-0.7) k/uL Basophils # 0.0 (0-0.2) k/uL Sodium 136 L (137-145) mmol/L Potassium 4.2 (3.5-5.1) mmol/L Chloride 107 (98-107) mmol/L Carbon Dioxide 22 (22-30) mmol/L Anion Gap 7 mmol/L BUN 5 L (7-17) mg/dL Creatinine 0.26 L (0.52-1.04) mg/dL Est GFR (CKD-EPI)AfAm >90 (>60 ml/min/1.73 sqM) Est GFR (CKD-EPI)NonAf >90 (>60 ml/min/1.73 sqM) Glucose 101 H (74-99) mg/dL Calcium 9.5 (8.4-10.2) mg/dL Total Bilirubin 0.7 (0.2-1.3) mg/dL AST 15 (14-36) U/L ALT 15 (9-52) U/L Alkaline Phosphatase 94 (38-126) U/L Total Protein 6.8 (6.3-8.2) g/dL Albumin 3.8 (3.5-5.0) g/dL Lipase 18 L (23-300) U/L HCG, Quant 57725.6 mIU/mL Urine Color Yellow Urine Appearance Cloudy H (Clear) Urine pH 8.0 (5.0-8.0) Ur Specific [place] 1.028 (1.001-1.035) Urine Protein Trace H (Negative) Urine Glucose (UA) Negative (Negative) Urine Ketones Negative (Negative) Urine Blood Negative (Negative) Urine Nitrite Negative (Negative) Urine Bilirubin Negative (Negative) Urine Urobilinogen 3.0 (<2.0) mg/dL Ur Leukocyte Esterase Large H (Negative) Urine RBC 11 H (0-5) /hpf Urine WBC 36 H (0-5) /hpf Ur Squamous Epith Cells 2 (0-4) /hpf Urine Bacteria Occasional H (None) /hpf Urine Mucus Few H (None) /hpf Disposition Clinical Impression: Abdominal pain in , UTI (urinary tract infection) Disposition: HOME SELF-CARE Condition: Stable Instructions (If sedation given, give patient instructions): Urinary Tract Infection in Women (ED) Additional Instructions: Please return to the Emergency Department if symptoms worsen or any other concerns. Prescriptions: Cephalexin [Keflex] 500 mg PO Q8HR #21 cap Is patient prescribed a controlled substance at d/c from ED?: No Referrals: Radha Choi MD [Primary Care Provider] - 1-2 days Time of Disposition: 12:25
[2019-04-10 11:20] LABS: Basophils % (A) 1 %; Eosinophils # (A) 0.3 k/uL (0-0.7); Eosinophils % (A) 5 %; HCT 31.3 % (34.0-46.0); HGB 10.7 gm/dL (11.4-16.0); Lymphocytes # (A) 1.3 k/uL (1.0-4.8); Lymphocytes % (A) 19 %; MCH 28.1 pg (25.0-35.0); MCHC 34.2 g/dL (31.0-37.0); MCV 82.1 fL (80.0-100.0); Mean Platelet Volume 7.5; Monocytes # (A) 0.3 k/uL (0-1.0); Monocytes % (A) 5 %; Neutrophils # (A) 4.8 k/uL (1.3-7.7); Neutrophils % (A) 69 %; Platelet Count 299 k/uL (150-450); RBC 3.81 m/uL (3.80-5.40); RDW 14.2 % (11.5-15.5); WBC 6.9 k/uL (3.8-10.6)
[2019-04-10 11:24] LABS: Appearance,Urine Cloudy (Clear); Bilirubin,Urine Negative (Negative); Blood,Urine Negative (Negative); Color,Urine Yellow; Glucose,Urine (UA) Negative (Negative); Ketones,Urine Negative (Negative); Leukocyte Esterase,Urine Large (Negative); Nitrite,Urine Negative (Negative); Protein,Urine Trace (Negative); Specific Gravity,Urine 1.028 (1.001-1.035)
[2019-04-10 11:25] LABS: Bacteria,Urine Occasional /hpf; Mucus,Urine Few /hpf; RBC,Urine 11 /hpf (0-5); Squamous Epithelial Cell,Urine 2 /hpf (0-4)
[2019-04-10 11:27] LABS: ALT 15 U/L (9-52); AST 15 U/L (14-36); Albumin 3.8 g/dL (3.5-5.0); Alkaline Phosphatase 94 U/L (38-126); Anion Gap 7 mmol/L; Blood Urea Nitrogen 5 mg/dL (7-17); Calcium 9.5 mg/dL (8.4-10.2); Carbon Dioxide 22 mmol/L (22-30); Chloride 107 mmol/L (98-107); Glucose 101 mg/dL (74-99); Lipase 18 U/L (23-300); Potassium 4.2 mmol/L (3.5-5.1); Sodium 136 mmol/L (137-145); Total Bilirubin 0.7 mg/dL (0.2-1.3); Total Protein 6.8 g/dL (6.3-8.2)
[2019-04-10] MEDS ORDERED: cefTRIAXone IN SWFI 1,000 MG/10 ML SYRINGE IVP STA (11:32)
[2019-04-10 12:17] LABS: HCG,Quantitative Serum 57471.6 mIU/mL
--- NOTE | 2019-04-10 12:20 | US ---
EXAMINATION TYPE: Transabdominal DATE OF EXAM: 04/10/2019 12:03 PM COMPARISON: NONE CLINICAL HISTORY: Pain. N/V abd pain, G1 EXAM PERFORMED: OBTA EXAM MEASUREMENTS: GESTATIONAL AGE / DATING Physician Established: (11 weeks/3 days) EDC: 10/27/2019 Dates by LMP: LMP unknown Dates by First Scan: No previous here, this is first scan Dates by Current Scan for: (11 weeks/2 days) EDC: 10/28/2019 MATERNAL ANATOMY Uterus: 13.8 x 9.9 x 9.5cm Right Ovary: 3.2 x 1.5 x 1.6cm Left Ovary: 4.1 x 3.8 x 2.7cm Post CDS / Adnexa: wnl Presence of free fluid: no Presence of corpus luteal cyst: yes, left ovary 1.9cm Presence of subchorionic bleed: no GESTATION / SURVEY CRL: 4.5cm (11 weeks/2 days) MSD: irregular whitehead noted Yolk Sac (normal less than 6mm): 0.4cm Heart Rate: 167 bpm Rhythm: Normal IUP: No IUP seen at this time Date of LMP: unknown Beta HcG (if available): pending IMPRESSION: 1. Single intrauterine gestation estimated at 11 weeks 2 days gestation based on the crown-rump lengt h. Cardiac activity measures 167 bpm.
[2019-04-10 12:56] VITALS: BP 146/86; PULSE 83
== END 2019-04-10 12:56 | disposition home or self-care (01) ==
LOC: EC 10:37
DX: O23.41 Unspecified infection of urinary tract in pregnancy, first trimester (principal); O21.9 Vomiting of pregnancy, unspecified; O99.511 Diseases of the respiratory system complicating pregnancy, first trimester; J45.909 Unspecified asthma, uncomplicated; O24.111 Pre-existing type 2 diabetes mellitus, in pregnancy, first trimester; Z79.4 Long term (current) use of insulin; Z3A.11 11 weeks gestation of pregnancy
CPT/HCPCS: 36415; 80053; 83690; 85025; 81001; 84702; 87086; 76801; 99284; 96374; 96375; 96361 ×2; J2405; J0696

== ENCOUNTER 2019-05-09 18:14 | Emergency (ER) | payer OTHER ==
[2019-05-09 18:24] VITALS: BP 133/72; RESP 18; TEMP 98.6
--- NOTE | 2019-05-09 19:01 | ED ---
URI HPI - General Chief Complaint: Upper Respiratory Infection Stated Complaint: nabil, Hx asthma Time Seen by Provider: 05/09/19 18:26 Source: patient, RN notes reviewed Mode of arrival: ambulatory Limitations: no limitations - History of Present Illness Initial Comments: 24-year-old female presents emergency Department with chief complaint of cough congestion shortness of breath. Patient has asthma. Patient states started sore throat days ago. Patient states is improving she has persistent cough. She has not used her head but she does not have one. No fevers no chills no sick contacts. - Related Data Home Medications Medication Instructions Recorded Confirmed Xay-Buef-Hkgle Acid 1 cap PO DAILY 05/09/19 05/09/19 [-U Capsule (formulary)] Propylthiouracil 50 mg PO TID 05/09/19 05/09/19 metFORMIN HCL [Glucophage] 500 mg PO HS 05/09/19 05/09/19 Previous Rx's Medication Instructions Recorded Albuterol Sulfate [Proair Hfa] 1 - 2 puff INHALATION Q4HR PRN #1 05/09/19 inhaler Azithromycin [Zithromax Z-pack] 0 mg PO DIRECTED #1 pack 05/09/19 Allergies Allergy/AdvReac Type Severity Reaction Status Date / Time No Known Allergies Allergy Verified 05/09/19 18:24 Review of Systems ROS Statement: Those systems with pertinent positive or pertinent negative responses have been documented in the HPI. ROS Other: All systems not noted in ROS Statement are negative. Past Medical History Past Medical History: Asthma, Diabetes Mellitus Additional Past Medical History / Comment(s): migraines History of Any Multi-Drug Resistant Organisms: None Reported Past Surgical History: No Surgical Hx Reported Past Psychological History: Anxiety Smoking Status: Never smoker Past Alcohol Use History: None Reported Past Drug Use History: None Reported General Exam Limitations: no limitations General appearance: alert, in no apparent distress Head exam: Present: atraumatic, normocephalic, normal inspection Eye exam: Present: normal appearance, PERRL, EOMI. Absent: scleral icterus, conjunctival injection, periorbital swelling ENT exam: Present: normal exam, normal oropharynx, mucous membranes moist Neck exam: Present: normal inspection, full ROM. Absent: tenderness, meningismus, lymphadenopathy Respiratory exam: Present: wheezes. Absent: normal lung sounds bilaterally, respiratory distress, rales, rhonchi, stridor Cardiovascular Exam: Present: regular rate, normal rhythm, normal heart sounds. Absent: systolic murmur, diastolic murmur, rubs, gallop, clicks GI/Abdominal exam: Present: soft, normal bowel sounds. Absent: distended, tenderness, guarding, rebound, rigid Back exam: Absent: CVA tenderness (R), CVA tenderness (L) Neurological exam: Present: alert, oriented X3, CN II-XII intact Skin exam: Present: warm, dry, intact, normal color. Absent: rash Course Vital Signs 05/09/19 18:22 Temperature 98.6 F Pulse Rate 105 H Respiratory 18 Rate Blood Pressure 133/72 O2 Sat by Pulse 97 Oximetry Medical Decision Making - Medical Decision Making 24-year-old female presented for cough congestion sore throat. Patient does have mild wheezing though satting well. Patient has asthmatic bronchitis will be given azithromycin and pro-air inhaler. Patient will follow-up with PCP tomorrow return for any worsening symptoms. Disposition Clinical Impression: Pharyngitis, Asthmatic bronchitis Disposition: HOME SELF-CARE Condition: Stable Instructions (If sedation given, give patient instructions): Upper Respiratory Infection (ED) Additional Instructions: Please return to the Emergency Department if symptoms worsen or any other concerns. Prescriptions: Albuterol Sulfate [Proair Hfa] 1 - 2 puff INHALATION Q4HR PRN #1 inhaler PRN Reason: difficulty in breathing Azithromycin [Zithromax Z-pack] 0 mg PO DIRECTED #1 pack Is patient prescribed a controlled substance at d/c from ED?: No Referrals: Radha Choi MD [Primary Care Provider] - 1-2 days Time of Disposition: 19:01
[2019-05-09 19:42] VITALS: PULSE 91
== END 2019-05-09 19:30 | disposition home or self-care (01) ==
LOC: EC 18:14
DX: J45.909 Unspecified asthma, uncomplicated (principal); J02.9 Acute pharyngitis, unspecified; E11.9 Type 2 diabetes mellitus without complications; Z79.899 Other long term (current) drug therapy; Z79.84 Long term (current) use of oral hypoglycemic drugs
CPT/HCPCS: 99284

== ENCOUNTER 2019-05-28 11:22 | Emergency (ER) | payer OTHER ==
[2019-05-28 11:32] VITALS: BP 127/77; PULSE 89; RESP 16; TEMP 98.2
[2019-05-28] MEDS ORDERED: SODIUM CHLORIDE 0.9% 1,000 ML IV ONE (11:40)
--- NOTE | 2019-05-28 11:42 | ED ---
Abdominal Pain HPI - General Chief Complaint: Abdominal Pain Stated Complaint: 18 wks preg;bleeding Time Seen by Provider: 05/28/19 11:29 Source: patient Mode of arrival: ambulatory Limitations: no limitations - History of Present Illness Initial Comments: Patient is a 24-year-old who presents with a chief complaint of abdominal cramping and 1 day of vaginal spotting. The cramping has been going on about 1 week. She identify any inciting incident. Patient says that she was seen by her WORK OVER RIG OPERATOR for this at the onset of the cramping however when she started having worse cramping her OB instructed her to come to the emergency department. She c annot identify any aggravating or alleviating factors. The patient states that the bleeding is minimal, she only sees small drops when she wipes after using the restroom. Patient has a medical history of diabetes, asthma, and Graves' disease. - Related Data Home Medications Medication Instructions Recorded Confirmed Oon-Zjuu-Taqqj Acid 1 cap PO DAILY 05/09/19 05/09/19 [-U Capsule (formulary)] Propylthiouracil 50 mg PO TID 05/09/19 05/09/19 metFORMIN HCL [Glucophage] 500 mg PO HS 05/09/19 05/09/19 Previous Rx's Medication Instructions Recorded Albuterol Sulfate [Proair Hfa] 1 - 2 puff INHALATION Q4HR PRN #1 05/09/19 inhaler Azithromycin [Zithromax Z-pack] 0 mg PO DIRECTED #1 pack 05/09/19 Nitrofurantoin Monohyd/M-Cryst 100 mg PO Q12HR #10 cap 05/28/19 [Macrobid] Allergies Allergy/AdvReac Type Severity Reaction Status Date / Time No Known Allergies Allergy Verified 05/28/19 11:25 Review of Systems ROS Statement: Those systems with pertinent positive or pertinent negative responses have been documented in the HPI. ROS Other: All systems not noted in ROS Statement are negative. Gastrointestinal: Reports: abdominal pain Genitourinary: Reports: other (vaginal spotting) Past Medical History Past Medical History: Asthma, Diabetes Mellitus Additional Past Medical History / Comment(s): migraines History of Any Multi-Drug Resistant Organisms: None Reported Past Surgical History: No Surgical Hx Reported Past Psychological History: Anxiety Smoking Status: Never smoker Past Alcohol Use History: None Reported Past Drug Use History: None Reported General Exam Limitations: no limitations General appearance: alert, in no apparent distress Head exam: Present: atraumatic, normocephalic Eye exam: Present: normal appearance ENT exam: Present: normal exam Neck exam: Present: normal inspection Respiratory exam: Present: normal lung sounds bilaterally. Absent: respiratory distress Cardiovascular Exam: Present: regular rate, normal rhythm GI/Abdominal exam: Present: soft, tenderness (Mild tenderness to palpation along the left side and lower abdomen). Absent: distended, guarding, rebound Rectal exam: Present: deferred Extremities exam: Present: normal inspection Back exam: Present: normal inspection Neurological exam: Present: alert, oriented X3, CN II-XII intact, normal gait Psychiatric exam: Present: normal affect, normal mood Skin exam: Present: warm, dry, intact Course Vital Signs 05/28/19 11:25 Temperature 98.2 F Pulse Rate 89 Respiratory 16 Rate Blood Pressure 127/77 O2 Sat by Pulse 98 Oximetry Medical Decision Making - Medical Decision Making Patient presents to chief complaint of abdominal cramping and vaginal spotting times one day. She is about 18 weeks with her first . On initial evaluation, vitals are stable, patient is in no acute distress. She'll be evaluated with basic labs including liver profile and Rh screen. He was given a liter of fluid. She'll be sent for an OB ultrasound. 2:16 PM Lab evaluation of this patient is unremarkable. Urinalysis shows evidence of a urinary tract infection which will be treated with Macrobid. Type is B+, the patient does not need program at this time. Pelvic exam shows a closed cervical os with some atypical cells at the 7:00 to 9 o'clock position on the cervix. Patient has a history of abnormal Pap smears, and HPV. She was informed of these findings and instructed to follow up with primary care and WORK OVER RIG OPERATOR in 1-2 days. Patient verbalizes understanding, she is stable for discharge. - Lab Data Result diagrams: 05/28/19 12:10 05/28/19 12:10 Lab Results 05/28/19 05/28/19 05/28/19 Range/Units 12:10 12:10 12:10 WBC 6.6 (3.8-10.6) k/uL RBC 3.79 L (3.80-5.40) m/uL Hgb 10.9 L (11.4-16.0) gm/dL Hct 30.9 L (34.0-46.0) % MCV 81.5 (80.0-100.0) fL MCH 28.7 (25.0-35.0) pg MCHC 35.2 (31.0-37.0) g/dL RDW 14.0 (11.5-15.5) % Plt Count 268 (150-450) k/uL Neutrophils % 65 % Lymphocytes % 23 % Monocytes % 6 % Eosinophils % 5 % Basophils % 0 % Neutrophils # 4.3 (1.3-7.7) k/uL Lymphocytes # 1.5 (1.0-4.8) k/uL Monocytes # 0.4 (0-1.0) k/uL Eosinophils # 0.3 (0-0.7) k/uL Basophils # 0.0 (0-0.2) k/uL Sodium 136 L (137-145) mmol/L Potassium 4.0 (3.5-5.1) mmol/L Chloride 105 (98-107) mmol/L Carbon Dioxide 22 (22-30) mmol/L Anion Gap 9 mmol/L BUN 5 L (7-17) mg/dL Creatinine 0.31 L (0.52-1.04) mg/dL Est GFR (CKD-EPI)AfAm >90 (>60 ml/min/1.73 sqM) Est GFR (CKD-EPI)NonAf >90 (>60 ml/min/1.73 sqM) Glucose 89 (74-99) mg/dL Calcium 8.8 (8.4-10.2) mg/dL Total Bilirubin 0.8 (0.2-1.3) mg/dL AST 11 L (14-36) U/L ALT 13 (9-52) U/L Alkaline Phosphatase 81 (38-126) U/L Total Protein 6.5 (6.3-8.2) g/dL Albumin 3.4 L (3.5-5.0) g/dL Urine Color Urine Appearance (Clear) Urine pH (5.0-8.0) Ur Specific Shirley (1.001-1.035) Urine Protein (Negative) Urine Glucose (UA) (Negative) Urine Ketones (Negative) Urine Blood (Negative) Urine Nitrite (Negative) Urine Bilirubin (Negative) Urine Urobilinogen (<2.0) mg/dL Ur Leukocyte Esterase (Negative) Urine RBC (0-5) /hpf Urine WBC (0-5) /hpf Ur Squamous Epith Cells (0-4) /hpf Urine Bacteria (None) /hpf Urine Mucus (None) /hpf Blood Type B Positive Blood Type Recheck [facility] ONLY 05/28/19 Range/Units 12:10 WBC (3.8-10.6) k/uL RBC (3.80-5.40) m/uL Hgb (11.4-16.0) gm/dL Hct (34.0-46.0) % MCV (80.0-100.0) fL MCH (25.0-35.0) pg MCHC (31.0-37.0) g/dL RDW (11.5-15.5) % Plt Count (150-450) k/uL Neutrophils % % Lymphocytes % % Monocytes % % Eosinophils % % Basophils % % Neutrophils # (1.3-7.7) k/uL Lymphocytes # (1.0-4.8) k/uL Monocytes # (0-1.0) k/uL Eosinophils # (0-0.7) k/uL Basophils # (0-0.2) k/uL Sodium (137-145) mmol/L Potassium (3.5-5.1) mmol/L Chloride (98-107) mmol/L Carbon Dioxide (22-30) mmol/L Anion Gap mmol/L BUN (7-17) mg/dL Creatinine (0.52-1.04) mg/dL Est GFR (CKD-EPI)AfAm (>60 ml/min/1.73 sqM) Est GFR (CKD-EPI)NonAf (>60 ml/min/1.73 sqM) Glucose (74-99) mg/dL Calcium (8.4-10.2) mg/dL Total Bilirubin (0.2-1.3) mg/dL AST (14-36) U/L ALT (9-52) U/L Alkaline Phosphatase (38-126) U/L Total Protein (6.3-8.2) g/dL Albumin (3.5-5.0) g/dL Urine Color Yellow Urine Appearance Clear (Clear) Urine pH 8.0 (5.0-8.0) Ur Specific Shirley 1.019 (1.001-1.035) Urine Protein Trace H (Negative) Urine Glucose (UA) Negative (Negative) Urine Ketones Negative (Negative) Urine Blood Negative (Negative) Urine Nitrite Negative (Negative) Urine Bilirubin Negative (Negative) Urine Urobilinogen 3.0 (<2.0) mg/dL Ur Leukocyte Esterase Moderate H (Negative) Urine RBC 6 H (0-5) /hpf Urine WBC 18 H (0-5) /hpf Ur Squamous Epith Cells 1 (0-4) /hpf Urine Bacteria Rare H (None) /hpf Urine Mucus Rare H (None) /hpf Blood Type Blood Type Recheck Disposition Clinical Impression: Vaginal bleeding before 22 weeks gestation, UTI (urinary tract infection) Disposition: HOME SELF-CARE Condition: Good Instructions (If sedation given, give patient instructions): Urinary Tract Infection in (ED), Threatened Miscarriage (ED) Is patient prescribed a controlled substance at d/c from ED?: No Referrals: Radha Choi MD [Primary Care Provider] - 1-2 days
[2019-05-28 12:29] LABS: Basophils % (A) 0 %; Eosinophils # (A) 0.3 k/uL (0-0.7); Eosinophils % (A) 5 %; HCT 30.9 % (34.0-46.0); HGB 10.9 gm/dL (11.4-16.0); Lymphocytes # (A) 1.5 k/uL (1.0-4.8); Lymphocytes % (A) 23 %; MCH 28.7 pg (25.0-35.0); MCHC 35.2 g/dL (31.0-37.0); MCV 81.5 fL (80.0-100.0); Mean Platelet Volume 8.8; Monocytes # (A) 0.4 k/uL (0-1.0); Monocytes % (A) 6 %; Neutrophils # (A) 4.3 k/uL (1.3-7.7); Neutrophils % (A) 65 %; Platelet Count 268 k/uL (150-450); RBC 3.79 m/uL (3.80-5.40); WBC 6.6 k/uL (3.8-10.6)
[2019-05-28 12:31] LABS: Appearance,Urine Clear (Clear); Bacteria,Urine Rare /hpf; Bilirubin,Urine Negative (Negative); Blood,Urine Negative (Negative); Color,Urine Yellow; Glucose,Urine (UA) Negative (Negative); Ketones,Urine Negative (Negative); Leukocyte Esterase,Urine Moderate (Negative); Mucus,Urine Rare /hpf; Nitrite,Urine Negative (Negative); Protein,Urine Trace (Negative); RBC,Urine 6 /hpf (0-5); Specific Gravity,Urine 1.019 (1.001-1.035); Squamous Epithelial Cell,Urine 1 /hpf (0-4); WBC,Urine 18 /hpf (0-5)
[2019-05-28 13:02] LABS: ALT 13 U/L (9-52); AST 11 U/L (14-36); African American GFR (CKD) >90 (>60 ml/min/1.73 sqM); Albumin 3.4 g/dL (3.5-5.0); Alkaline Phosphatase 81 U/L (38-126); Blood Urea Nitrogen 5 mg/dL (7-17); Calcium 8.8 mg/dL (8.4-10.2); Carbon Dioxide 22 mmol/L (22-30); Glucose 89 mg/dL (74-99); Total Bilirubin 0.8 mg/dL (0.2-1.3); Total Protein 6.5 g/dL (6.3-8.2)
[2019-05-28 13:13] LABS: Anion Gap 9 mmol/L; Chloride 105 mmol/L (98-107); Sodium 136 mmol/L (137-145)
--- NOTE | 2019-05-28 13:52 | US ---
EXAMINATION TYPE: US OB >= 14 wk fetus DATE OF EXAM: 05/28/2019 COMPARISON: US CLINICAL HISTORY: Patient c/o vaginal spotting today; diabetic, HTN and takes aspirin, intermittent pelvic cramping x 5 days; G1 TECHNIQUE: Transabdominal (TA) GESTATIONAL AGE / DATING Physician Established: (18 weeks/2 days) EDC: 10/27/2019 Dates by LMP: LMP unknown Dates by First Scan: (18 weeks/1 day) EDC: 10/28/2019 Dates by Current Scan: (18 weeks/1 day) EDC: 10/28/2019 Beta HCG (if available): not requested on blood chemistry SURVEY IUP: Single PLACENTA: Posterior; focal myometrial contraction was noted at onset of US exam and subsided at exam' s end. PREVIA: No Previa ERIBERTO: 11.8 cm Normal CERVICAL LENGTH (transabdominal: norm > 3.0cm): 3.1 cm BIOMETRY PRESENTATION: Breech LIE: Longitudinal BPD: 4.0 cm 18 weeks / 1 day HC: 15.3 cm 18 weeks / 2 days AC: 12.6 cm 18 weeks / 2 days FL: 2.7 cm 18 weeks / 2 days ESTIMATED WEIGHT IN GRAMS: 231.6 grams ESTIMATED WEIGHT IN LBS/OZ: 0 lbs. 8 oz. WEIGHT PERCENTAGE BASED ON ESTABLISHED DATES: 43.7% HC/AC: 1.21 Normal FL/AC: 21.55 Normal HEART RATE: 145 bpm RHYTHM: Normal Single, live IUP,18 weeks/1 day, EDC: 10/28/2019, HR 145bpm. IMPRESSION: 1. Single intrauterine gestation estimated at 18 weeks 1 day gestation based on the current ultrasoun d measurements. Heart rate measures 145 bpm.
== END 2019-05-28 14:59 | disposition home or self-care (01) ==
LOC: EC 11:22
DX: O23.42 Unspecified infection of urinary tract in pregnancy, second trimester (principal); O20.9 Hemorrhage in early pregnancy, unspecified; E11.9 Type 2 diabetes mellitus without complications; Z79.84 Long term (current) use of oral hypoglycemic drugs; Z79.899 Other long term (current) drug therapy; O99.282 Endocrine, nutritional and metabolic diseases complicating pregnancy, second trimester; Z3A.18 18 weeks gestation of pregnancy
CPT/HCPCS: 36415; 76805; 80053; 81001; 85025; 86900; 86901; 96360; 99284

== ENCOUNTER 2019-08-30 12:17 | Outpatient (CLI) | payer OTHER ==
[2019-08-30 12:45] VITALS: BP 129/60; PULSE 96; RESP 18; TEMP 97.2
--- NOTE | 2019-09-04 10:44 | P.MSEPDOC ---
Presenting Problems - Arrival Data Date of Arrival on Unit: 08/30/19 Time of Arrival on Unit: 12:17 Mode of Transport: Ambulatory - Complaint OB-Reason for Admission/Chief Complaint: Decreased Movement Comment: pt here complaining of decreased movement today, pt has type 1 diabetes,. which she has started taking insuling with this preganancy, pt also has graves disease. Pt has gestation hypertension which she is on medication once a day. pt sees Dr Oquendo at [facility] because she has a high risk . Medical History - Information : 1 Para: 0 Term: 0 : 0 Abortions: Spontaneous or Elective: 0 Number of Living Children: 0 - Gestational Age Gestational Age by SHAHEEN (wks/days): 31 Weeks and 5 Days Review of Systems - Review of Systems Constitutional: No problems Breast: No problems ENT: No problems Cardiovascular: No problems Respiratory: No problems Gastrointestinal: No problems Genitourinary: No problems Musculoskeletal: No problems Neurological: No problems Skin: No problems Vital Signs - Temperature Temperature: 97.2 F Temperature Source: Temporal Artery Scan - Pulse Pulse Oximetery Pulse Rate: 96 Pulse Assessment Method: Automatic Cuff - Respirations Respiratory Rate: 18 Oxygen Delivery Method: Room Air O2 Sat by Pulse Oximetry: 99 - Blood Pressure Right Arm Blood Pressure: 129/60 Blood Pressure Mean: 83 Blood Pressure Source: Automatic Cuff Medical Screen Scoring (Pre) - Cervical Exam Dilation: Exam Deferred Effacement: Exam Deferred Membranes: Intact - Uterine Contractions Frequency: N/A Duration: N/A Intensity: N/A - Maternal Vital Signs Maternal Temperature: N/A Maternal Blood Pressure: N/A Signs of Preeclampsia: N/A Maternal Respirations: N/A - Maternal Trauma Maternal Trauma: N/A - Assessment - Baby A Baseline FHR: 130 Heart Rate - NICHD Category: Category I (Normal) = 0 NST: Reactive Position: N/A Station: N/A - Total Score - Baby A Total Score - Baby A: 0 - Total Score - Baby B Total Score - Baby B: 0 - Total Score - Baby C Total Score - Baby C: 0 - Level of Risk - Baby A Level of Risk - Baby A: Low (0-5) - Level of Risk - Baby B Level of Risk - Baby B: Low (0-5) - Level of Risk - Baby C Level of Risk - Baby C: Low (0-5) Physician Notification (Pre) - Physician Notified Physician Notified Date: 08/30/19 Physician Notified Time: 13:08 Physician/Practitioner Notifed:: Dr. Barnes New Order Received: Yes (discharge) - Notification Comment Comment: Dr. Barnes called on cell, report given. Pt a DOM but sees a at [facility]. because of type 1 diabetes and graves disease. Pt has complaints of decreased . movement today. NST is reactive and pt is feeling movement now. Vital signs WNL. Orders to discharge pt and have her call her OB for a follow up appointment. Disposition - Disposition OB Disposition: Discharge to home Discharge Date: 08/30/19 Discharge Time: 13:10 I agree with the RN Medical Screening Exam: Yes Risk & Benefit of care provided described in d/c instruction: Yes Diagnosis: DECREASED MOVEMENTS, THIRD TRIMESTER, UNSP
== END 2019-08-30 13:10 | disposition home or self-care (01) ==
LOC: FBPOP 12:17
PROVIDERS: ATTEND Obstetrics & Gynecology Obstetrics
DX: O36.8130 Decreased fetal movements, third trimester, not applicable or unspecified (principal); Z3A.31 31 weeks gestation of pregnancy
CPT/HCPCS: 59025; G0463; 99213

== ENCOUNTER 2019-12-28 19:39 | Inpatient (IN) | payer OTHER ==
[2019-12-28] MEDS ORDERED: SODIUM CHLORIDE 0.9% 500 ML 500 ML IV STA (19:58)
[2019-12-28] MEDS ORDERED: SODIUM CHLORIDE 0.9% 1,000 ML IV STA (19:58)
--- NOTE | 2019-12-28 20:18 | ED ---
General Adult HPI - General Chief complaint: Arrhythmia/Palpitations Stated complaint: heart racing Time Seen by Provider: 12/28/19 19:52 Source: patient, RN notes reviewed, old records reviewed Mode of arrival: wheelchair Limitations: no limitations - History of Present Illness Initial comments: 24-year-old female presenting for evaluation of palpitations. Patient states that just prior to arrival she developed a sensation that her heart was racing. She denies chest pain. Denies dyspnea. She has no history of irregular heartbeat or atrial fibrillation in the past. She states she has had intermittent palpitations in the past. She is diagnosed with Graves' disease and is prescribed methimazole but has not been on this medication for the past 2 weeks. She denies lower externally pain or swelling. She denies possibility of . She denies any alcohol or drugs of abuse. No vomiting or diarrhea. No cough or cold symptoms. She additionally has diagnosis of hypertension and diabetes. Not currently on any antihypertensive medications. Patient denies the possibility of . - Related Data Home Medications Medication Instructions Recorded Confirmed Dlj-Rdmb-Oxomi Acid 1 cap PO DAILY 05/09/19 08/30/19 [-U Capsule (formulary)] Propylthiouracil 50 mg PO TID 05/09/19 08/30/19 Insulin Glargine [Lantus] 5 unit SQ HS 08/30/19 08/30/19 Insuln Asp Prt/Insulin Aspart 0 unit SQ BID-W/MEALS PRN 08/30/19 08/30/19 [NovoLOG MIX 70-30 VIAL] Previous Rx's Medication Instructions Recorded Albuterol Sulfate [Proair Hfa] 1 - 2 puff INHALATION Q4HR PRN #1 05/09/19 inhaler Allergies Allergy/AdvReac Type Severity Reaction Status Date / Time No Known Allergies Allergy Verified 12/28/19 19:44 Review of Systems ROS Statement: Those systems with pertinent positive or pertinent negative responses have been documented in the HPI. ROS Other: All systems not noted in ROS Statement are negative. Past Medical History Past Medical History: Asthma, Diabetes Mellitus Additional Past Medical History / Comment(s): migraines History of Any Multi-Drug Resistant Organisms: None Reported Past Surgical History: No Surgical Hx Reported Past Psychological History: Anxiety Smoking Status: Never smoker Past Alcohol Use History: None Reported Past Drug Use History: Marijuana General Exam Limitations: no limitations General appearance: alert, in no apparent distress Head exam: Present: atraumatic, normocephalic Eye exam: Present: normal appearance, PERRL ENT exam: Present: normal exam Neck exam: Present: normal inspection. Absent: tenderness, meningismus Respiratory exam: Present: normal lung sounds bilaterally. Absent: respiratory distress Cardiovascular Exam: Present: tachycardia, irregular rhythm GI/Abdominal exam: Present: soft. Absent: distended, tenderness, guarding, rebound Extremities exam: Present: normal inspection, normal capillary refill. Absent: pedal edema, calf tenderness Neurological exam: Present: alert, oriented X3, CN II-XII intact. Absent: motor sensory deficit Psychiatric exam: Present: normal affect, normal mood Skin exam: Present: warm, dry, intact. Absent: cyanosis, diaphoretic Course Vital Signs 12/28/19 12/28/19 12/28/19 19:41 20:20 20:30 Temperature 98.1 F Pulse Rate 124 H 154 H 152 H Respiratory 20 16 18 Rate Blood Pressure 164/89 150/80 O2 Sat by Pulse 97 99 100 Oximetry 12/28/19 20:40 Temperature Pulse Rate 156 H Respiratory 16 Rate Blood Pressure 115/78 O2 Sat by Pulse 99 Oximetry EKG Findings - EKG Comments: EKG Findings:: EKG: Atrial fibrillation with RVR, no ST segment elevation rate of 134, QRS duration 90, QTC 448 Medical Decision Making - Medical Decision Making 24-year-old female with new-onset atrial fibrillation with RVR, rate between 140 and 170. Patient's has stable blood pressure, no complaints time my evaluation. X-ray performed negative for focal pneumonia or acute findings, no pn eumothorax. She has a normal CBC, stable hemoglobin. D-dimer is negative. Electrolytes are within normal limits, with the exception of magnesium which is 1.5 and this is replaced. Negative troponin. No signs of heart failure. TSH is low and T3 and T4 have been added in this patient with Graves' disease, these are pending. She has no signs of thyroid storm, she is alert, afebrile, normal blood pressure. Echo will be obtained. Case discussed with the admitting physician Dr. Mars. She will be admitted for rate control and anticoagulation. She has a [id number] of 3. - Lab Data Result diagrams: 12/28/19 20:09 12/28/19 20:09 Lab Results 12/28/19 12/28/19 12/28/19 Range/Units 20:09 20:09 20:09 WBC 10.6 (3.8-10.6) k/uL RBC 5.19 (3.80-5.40) m/uL Hgb 14.0 (11.4-16.0) gm/dL Hct 43.7 (34.0-46.0) % MCV 84.1 (80.0-100.0) fL MCH 26.9 (25.0-35.0) pg MCHC 32.0 (31.0-37.0) g/dL RDW 12.7 (11.5-15.5) % Plt Count 318 (150-450) k/uL Neutrophils % 57 % Lymphocytes % 30 % Monocytes % 5 % Eosinophils % 6 % Basophils % 1 % Neutrophils # 6.0 (1.3-7.7) k/uL Lymphocytes # 3.1 (1.0-4.8) k/uL Monocytes # 0.6 (0-1.0) k/uL Eosinophils # 0.6 (0-0.7) k/uL Basophils # 0.1 (0-0.2) k/uL PT 10.1 (9.0-12.0) sec INR 1.0 (<1.2) APTT 23.4 (22.0-30.0) sec D-Dimer 0.31 (<0.60) mg/L FEU Sodium 136 L (137-145) mmol/L Potassium 4.1 (3.5-5.1) mmol/L Chloride 101 (98-107) mmol/L Carbon Dioxide 24 (22-30) mmol/L Anion Gap 11 mmol/L BUN 15 (7-17) mg/dL Creatinine 0.43 L (0.52-1.04) mg/dL Est GFR (CKD-EPI)AfAm >90 (>60 ml/min/1.73 sqM) Est GFR (CKD-EPI)NonAf >90 (>60 ml/min/1.73 sqM) Glucose 246 H (74-99) mg/dL Calcium 9.8 (8.4-10.2) mg/dL Magnesium 1.5 L (1.6-2.3) mg/dL Total Bilirubin 1.0 (0.2-1.3) mg/dL AST 28 (14-36) U/L ALT 29 (4-34) U/L Alkaline Phosphatase 97 (38-126) U/L Troponin I (0.000-0.034) ng/mL Total Protein 8.2 (6.3-8.2) g/dL Albumin 4.4 (3.5-5.0) g/dL TSH <0.015 L (0.465-4.680) mIU/L 12/28/19 Range/Units 20:09 WBC (3.8-10.6) k/uL RBC (3.80-5.40) m/uL Hgb (11.4-16.0) gm/dL Hct (34.0-46.0) % MCV (80.0-100.0) fL MCH (25.0-35.0) pg MCHC (31.0-37.0) g/dL RDW (11.5-15.5) % Plt Count (150-450) k/uL Neutrophils % % Lymphocytes % % Monocytes % % Eosinophils % % Basophils % % Neutrophils # (1.3-7.7) k/uL Lymphocytes # (1.0-4.8) k/uL Monocytes # (0-1.0) k/uL Eosinophils # (0-0.7) k/uL Basophils # (0-0.2) k/uL PT (9.0-12.0) sec INR (<1.2) APTT (22.0-30.0) sec D-Dimer (<0.60) mg/L FEU Sodium (137-145) mmol/L Potassium (3.5-5.1) mmol/L Chloride (98-107) mmol/L Carbon Dioxide (22-30) mmol/L Anion Gap mmol/L BUN (7-17) mg/dL Creatinine (0.52-1.04) mg/dL Est GFR (CKD-EPI)AfAm (>60 ml/min/1.73 sqM) Est GFR (CKD-EPI)NonAf (>60 ml/min/1.73 sqM) Glucose (74-99) mg/dL Calcium (8.4-10.2) mg/dL Magnesium (1.6-2.3) mg/dL Total Bilirubin (0.2-1.3) mg/dL AST (14-36) U/L ALT (4-34) U/L Alkaline Phosphatase (38-126) U/L Troponin I <0.012 (0.000-0.034) ng/mL Total Protein (6.3-8.2) g/dL Albumin (3.5-5.0) g/dL TSH (0.465-4.680) mIU/L Critical Care Time Critical Care Time: Yes Total Critical Care Time: 35 Disposition Clinical Impression: Atrial fibrillation, Graves' disease, Atrial fibrillation with RVR Disposition: ADMITTED IP TO THIS [facility] Condition: Stable Is patient prescribed a controlled substance at d/c from ED?: No Referrals: Radha Choi MD [Primary Care Provider] - 1-2 days Decision to Admit Reason: Admit from EC Decision Date: 12/28/19 Decision Time: 21:09
[2019-12-28 20:24] LABS: Basophils # (A) 0.1 k/uL (0-0.2); Basophils % (A) 1 %; Eosinophils # (A) 0.6 k/uL (0-0.7); Eosinophils % (A) 6 %; HCT 43.7 % (34.0-46.0); Lymphocytes # (A) 3.1 k/uL (1.0-4.8); Lymphocytes % (A) 30 %; MCH 26.9 pg (25.0-35.0); MCV 84.1 fL (80.0-100.0); Mean Platelet Volume 8.8; Monocytes # (A) 0.6 k/uL (0-1.0); Monocytes % (A) 5 %; Neutrophils % (A) 57 %; Platelet Count 318 k/uL (150-450); RBC 5.19 m/uL (3.80-5.40); RDW 12.7 % (11.5-15.5); WBC 10.6 k/uL (3.8-10.6)
[2019-12-28 20:30] LABS: ALT 29 U/L (4-34); AST 28 U/L (14-36); African American GFR (CKD) >90 (>60 ml/min/1.73 sqM); Albumin 4.4 g/dL (3.5-5.0); Alkaline Phosphatase 97 U/L (38-126); Anion Gap 11 mmol/L; Blood Urea Nitrogen 15 mg/dL (7-17); Calcium 9.8 mg/dL (8.4-10.2); Carbon Dioxide 24 mmol/L (22-30); Chloride 101 mmol/L (98-107); Glucose 246 mg/dL (74-99); Magnesium 1.5 mg/dL (1.6-2.3); Non-African American GFR(CKD) >90 (>60 ml/min/1.73 sqM); Potassium 4.1 mmol/L (3.5-5.1); Sodium 136 mmol/L (137-145); Total Protein 8.2 g/dL (6.3-8.2)
[2019-12-28 20:34] LABS: D-Dimer 0.31 mg/L FEU (<0.60); Partial Thromboplastin Time 23.4 sec (22.0-30.0); Prothrombin Time 10.1 sec (9.0-12.0)
[2019-12-28] MEDS ORDERED: DILTIAZEM 125 MG in SODIUM CHLORIDE 0.9% 100 ML IV SCH (20:45)
[2019-12-28] MEDS ORDERED: MAGNESIUM SULFATE-D5W PMX 1 GM in DEXTROSE/WATER 1 100ML.BAG IVPB ONE (20:49)
--- NOTE | 2019-12-28 20:54 | XR ---
EXAMINATION TYPE: XR chest 2V DATE OF EXAM: 12/28/2019 COMPARISON: 09/28/2018 INDICATION: Dysrhythmia TECHNIQUE: Frontal and lateral views of the chest are obtained. FINDINGS: The heart size is normal. The pulmonary vasculature is normal. The lungs are clear. IMPRESSION: 1. No acute pulmonary process.
[2019-12-28] MEDS ORDERED: HEPARIN SODIUM,PORCINE 5,000 UNIT/ML 1 ML VIAL IV ONE (20:59)
[2019-12-28] MEDS ORDERED: ACETAMINOPHEN TAB 325 MG TAB PO PRN (21:00)
[2019-12-28] MEDS ORDERED: NALOXONE 0.4 MG/ML 1 ML VIAL IV PRN (21:00)
[2019-12-28] MEDS: DILTIAZEM DRIP BOLUS FROM BAG 1 MG SOLN IV ONE ×2 (21:01→22:00)
[2019-12-28 21:47] LABS: T4, Free (Free Thyroxine) 4.32 ng/dL (0.78-2.19)
[2019-12-28] MEDS: SODIUM CHLORIDE 0.9% 1,000 ML IV SCH (22:01)
[2019-12-28 23:12] LABS: Appearance,Urine Cloudy (Clear); Bacteria,Urine Rare /hpf; Bilirubin,Urine Negative (Negative); Blood,Urine Negative (Negative); Color,Urine Yellow; Glucose,Urine (UA) 4+ (Negative); Ketones,Urine Negative (Negative); Leukocyte Esterase,Urine Moderate (Negative); Mucus,Urine Rare /hpf; Nitrite,Urine Negative (Negative); PH, Urine 5.5 (5.0-8.0); Protein,Urine Negative (Negative); RBC,Urine 2 /hpf (0-5); Specific Gravity,Urine 1.022 (1.001-1.035); Squamous Epithelial Cell,Urine 5 /hpf (0-4); Urobilinogen,Urine <2.0 mg/dL (<2.0); WBC,Urine 11 /hpf (0-5)
[2019-12-28 23:20] LABS: Amphetamine Screen,Urine Not Detected (NotDetected); Barbiturate Screen,Urine Not Detected (NotDetected); Benzodiazepines Screen,Urine Not Detected (NotDetected); Cocaine Screen,Urine Not Detected (NotDetected); Methadone Screen, Urine Not Detected (NotDetected); Opiate Screen,Urine Not Detected (NotDetected); Oxycodone Screen, Urine Not Detected (NotDetected); Phencyclidine Screen,Urine Not Detected (NotDetected); Tricyclic Antidepressant,Urine Not Detected (NotDetected); Urn Cannabinoid Scrn Detected (NotDetected)
[2019-12-29] MEDS: HEPARIN SOD,PORK IN 0.45% NACL 25,000 UNIT in 0.45% NACL 1 250ML.BAG IV SCH ×2 (00:45→20:21)
[2019-12-29] MEDS: SODIUM CHLORIDE 0.9% 1,000 ML IV SCH (00:48)
[2019-12-29 01:28] LABS: Glucose,Whole Blood 224 mg/dL (75-99)
[2019-12-29 05:58] LABS: Basophils % (A) 0 %; Eosinophils # (A) 0.5 k/uL (0-0.7); Eosinophils % (A) 7 %; HCT 38.8 % (34.0-46.0); HGB 12.8 gm/dL (11.4-16.0); Lymphocytes # (A) 2.9 k/uL (1.0-4.8); Lymphocytes % (A) 36 %; MCH 27.7 pg (25.0-35.0); Mean Platelet Volume 8.7; Monocytes # (A) 0.5 k/uL (0-1.0); Monocytes % (A) 6 %; Neutrophils # (A) 3.8 k/uL (1.3-7.7); Neutrophils % (A) 47 %; Platelet Count 288 k/uL (150-450); RBC 4.62 m/uL (3.80-5.40); RDW 12.5 % (11.5-15.5)
[2019-12-29 06:10] LABS: African American GFR (CKD) >90 (>60 ml/min/1.73 sqM); Anion Gap 8 mmol/L; Blood Urea Nitrogen 13 mg/dL (7-17); Calcium 9.3 mg/dL (8.4-10.2); Carbon Dioxide 26 mmol/L (22-30); Chloride 101 mmol/L (98-107); Glucose 150 mg/dL (74-99); Non-African American GFR(CKD) >90 (>60 ml/min/1.73 sqM); Potassium 4.6 mmol/L (3.5-5.1); Sodium 135 mmol/L (137-145)
[2019-12-29 06:23] LABS: Glucose,Whole Blood 148 mg/dL (75-99)
[2019-12-29] MEDS ORDERED: HEPARIN SODIUM,PORCINE 5,000 UNIT/ML 1 ML VIAL IV STA (07:39)
[2019-12-29] MEDS: METOPROLOL SUCCINATE (ER) 25 MG TAB.ER.24H PO SCH (09:19)
[2019-12-29] MEDS: METHIMAZOLE 5 MG TAB PO SCH ×2 (09:19→21:41)
--- NOTE | 2019-12-29 10:59 | PN ---
PROGRESS NOTE This is a 24-year-old lady with history of diabetes, hyperthyroidism, and asthma, who is admitted to hospital with sustained palpitations. She has had on and off episodes of palpitations, but on this admission, she had sustained palpitations that lasted for a while, so she came to the ER and got admitted. Her initial EKG showed atrial fibrillation with rapid ventricular rate. She converted back to sinus rhythm. At the time of my evaluation, she is in sinus rhythm with sinus tachycardia. She is on intravenous Cardizem, which I am going to stop and she is on IV heparin, which I am going to leave her on at the moment. We will obtain a 2D echo on her to evaluate her LV function. I reviewed her labs. She is hyperthyroid. TSH is low. Both free T4 and T3 are elevated. Patient states that she is on methimazole, but has not been able to get hooked up with an grocery store manager locally and has not been taking her methimazole. I believe, the hyperthyroidism has precipitated her atrial fibrillation and with optimal control of the hyperthyroidism, I anticipate that she remains in sinus rhythm. She needs endocrine evaluation, unfortunately, this hospital does not have an grocery store manager who is available to see the patient. The patient has a sister who has had atrial fibrillation with rapid ventricular rate that were particularly difficult to control. PAST MEDICAL HISTORY: Significant for insulin-requiring diabetes, hypothyroidism and asthma. MEDICATIONS: At home include methimazole 10 b.i.d., insulin, albuterol, and vitamins. ALLERGIES: There are no known drug allergies. FAMILY HISTORY: Negative for premature coronary artery disease. FAMILY HISTORY: Significant for atrial fibrillation. SOCIAL HISTORY: Negative for current smoking, EtOH abuse, or drug abuse. REVIEW OF SYSTEMS: HEENT: Unremarkable. CARDIAC: As described above. RESPIRATORY: As described above. GI: Negative. GENITOURINARY: Negative. ALLERGY/IMMUNOLOGY: Negative. SKIN: Negative. MUSCULOSKELETAL: Negative. ENDOCRINE: Negative. DERM: Negative CONSTITUTIONAL: Negative. ONCOLOGICAL: Negative. VETERINARY TECHNOLOGIST: Negative. Rest of the system review is not relevant. On exam, heart rate is 100 beats per minute, afebrile, respiratory rate is 18, blood pressure is 124/83, O2 saturation is 98% on room air. There is no jugular venous distention. Chest exam reveals good air entry bilaterally without any crackles or rhonchi. Heart exam reveals first and second heart sounds. No gallop. No murmur. No rub. Abdomen is soft, nontender. Exam of extremities did not reveal any edema. Peripheral pulses are felt. VETERINARY TECHNOLOGIST exam did not reveal focal neurological deficits. EKG shows atrial fibrillation with rapid ventricular rate and subsequently she converted to sinus rhythm. Chest x-ray is normal. ASSESSMENT: 1. Paroxysmal atrial fibrillation. 2. Hyperthyroidism. 3. Insulin-requiring diabetes. 4. Morbid obesity. PLAN: Will obtain a 2D echo on her to evaluate her LV function. I am going to resume the methimazole at this time. She needs urgent evaluation by an grocery store manager for optimization of her hyperthyroidism therapy. MMODL / IJN: [id number] /
--- NOTE | 2019-12-29 12:26 | ECHOF ---
Referral Reason:New-onset atrial fibrillation MEASUREMENTS -------- HEIGHT: 175.3 cm WEIGHT: 149.7 kg BP: 127/91 RVIDd: 2.3 cm (< 3.3) IVSd: 1.8 cm (0.6 - 1.1) LVIDd: 4.0 cm (3.9 - 5.3) LVPWd: 1.9 cm (0.6 - 1.1) IVSs: 1.4 cm LVIDs: 2.9 cm LVPWs: 2.1 cm LAESV Index (A-L): 14.73 ml/m Ao Diam: 2.4 cm (2.0 - 3.7) AV Cusp: 1.9 cm (1.5 - 2.6) LA Diam: 3.8 cm (2.7 - 3.8) MV EXCURSION: 19.089 mm (> 18.000) MV EF SLOPE: 45 mm/s (70 - 150) EPSS: 0.3 cm MV E Usman: 1.61 m/s MV DecT: 120 ms MV A Usman: 1.76 m/s MV E/A Ratio: 0.92 AV maxP.21 mmHg AV meanP.25 mmHg RAP: 5.00 mmHg RVSP: 16.42 mmHg FINDINGS -------- Resting tachycardia (HR>100bpm). This was a technically adequate study. The left ventricular size is normal. There is severe concentric left ventricular hypertrophy. Ove rall left ventricular systolic function is low-normal with, an EF between 50 - 55 %. The diastolic filling pattern is normal for the age of the patient 7.79. The right ventricle is normal in size. The left atrial size is normal. The right atrial size is normal. The aortic valve is trileaflet and appears structurally normal. The mitral valve is normal. There is trace mitral regurgitation. The tricuspid valve appears structurally normal. Trace tricuspid regurgitation present. Right padma tricular systolic pressure is normal at < 35 mmHg. There is no pulmonic regurgitation present. The aortic root size is normal. IVC Not well visulized. There is no pericardial effusion. CONCLUSIONS -------- 1. Resting tachycardia (HR>100bpm). 2. This was a technically adequate study. 3. The left ventricular size is normal. 4. There is severe concentric left ventricular hypertrophy. 5. Overall left ventricular systolic function is low-normal with, an EF between 50 - 55 %. 6. The diastolic filling pattern is normal for the age of the patient 7.79 7. The right ventricle is normal in size. 8. The left atrial size is normal. 9. The right atrial size is normal. 10. The aortic valve is trileaflet and appears structurally normal. 11. The mitral valve is normal. 12. There is trace mitral regurgitation. 13. The tricuspid valve appears structurally normal. 14. Trace tricuspid regurgitation present. 15. Right ventricular systolic pressure is normal at < 35 mmHg. 16. There is no pulmonic regurgitation present. 17. The aortic root size is normal. 18. IVC Not well visulized. 19. There is no pericardial effusion. MINISTER ASSISTANT: Myrna Shah RDCS
[2019-12-29] MEDS: MAGNESIUM SULFATE-D5W PMX 1 GM in DEXTROSE/WATER 1 100ML.BAG IVPB SCH ×4 (12:33→23:07)
[2019-12-29] MEDS: HEPARIN SODIUM,PORCINE 5,000 UNIT/ML 1 ML VIAL IV PRN ×2 (14:53→22:04)
[2019-12-29 16:52] LABS: Glucose,Whole Blood 242 mg/dL (75-99)
[2019-12-29 20:16] LABS: Glucose,Whole Blood 179 mg/dL (75-99)
[2019-12-29] MEDS ORDERED: INSULIN DETEMIR (LEVEMIR) 100 UNIT/ML SYR SQ SCH (21:00)
--- NOTE | 2019-12-29 21:59 | P.HPIM ---
History of Present Illness H&P Date: 12/29/19 Chief Complaint: Palpitations Patient is a 24-year-old female with a known history of diabetes type 2 insulin- dependent, asthma, hyperthyroidism currently on methimazole which she has not been taking for the past 1 week, anxiety and morbid obesity came to ER with complaints of heart racing of fast. Patient has been having intermittent symptoms for the past 3 or 4 days. She is diagnosed with Graves' disease and is prescribed methimazole but has not been on this medication for the past 2 weeks. Denied any complaints of chest pain. No complaints of shortness of breath. No nausea vomiting or abdominal pain. No leg swelling. Denied any recent illnesses. No sick contacts at home. EKG showed atrial fibrillation with rapid regular rate TSH less than 0.015 and free T4 4 0.3 to UDS positive for marijuana Blood sugar is better than 250 on admission. Patient was started on heparin drip and Cardizem drip. Currently rate is controlled and Cardizem drip has been discontinued. Patient was converted back to sinus rhythm last night. Patient was started on metoprolol. Review of Systems Constitutional: Patient denies any fever or chills . No generalized weakness or weight loss. Abdomen: Patient denied nausea vomiting and diarrhea and abdominal pain. Cardiovascular: Patient denies any chest pain or short of breath and patient did have palpitations. Respiratory: patient denied any cough is from production. No shortness of breath Neurologic: Patient denied any numbness or tingling headache. Musculoskeletal: Patient denies any complaints of joint swelling or deformity. Skin: Negative Psychiatric: Negative Endocrine: No heat or cold intolerance. No recent weight gain. Genitourinary: No dysuria or hematuria. All other 14 point ROS negative except the above Past Medical History Past Medical History: Asthma, Diabetes Mellitus Additional Past Medical History / Comment(s): migraines History of Any Multi-Drug Resistant Organisms: None Reported Past Surgical History: No Surgical Hx Reported Past Anesthesia/Blood Transfusion Reactions: No Reported Reaction Past Psychological History: Anxiety Smoking Status: Never smoker Past Alcohol Use History: None Reported Past Drug Use History: Marijuana - Past Family History Mother Family Medical History: Asthma, Coronary Artery Disease (CAD) Father Family Medical History: Diabetes Mellitus Medications and Allergies Home Medications Medication Instructions Recorded Confirmed Type Gge-Oehn-Adhte Acid 1 cap PO HS 05/09/19 12/28/19 History [-U Capsule (formulary)] Insulin Glargine [Lantus] 10 - 20 unit SQ HS 08/30/19 12/28/19 History Methimazole 10 mg PO BID 12/28/19 12/28/19 History Albuterol Sulfate [Ventolin HFA] 1 - 2 puff INHALATION RT-Q6H PRN 12/29/19 12/29/19 History Allergies Allergy/AdvReac Type Severity Reaction Status Date / Time No Known Allergies Allergy Verified 12/28/19 22:52 Physical Exam Vitals: Vital Signs Temp Pulse Pulse Pulse Resp BP BP 12/29/19 10:21 96.8 F L 107 H 18 124/84 12/29/19 09:48 95 12/29/19 09:17 98.2 F 104 H 18 134/83 12/29/19 04:00 97.9 F 105 H 20 127/91 12/29/19 01:07 116 H 12/29/19 00:39 97.6 F 112 H 16 151/60 12/28/19 22:40 113 H 18 112/72 12/28/19 22:20 142 H 18 138/62 12/28/19 22:00 131 H 17 120/69 12/28/19 21:40 117 H 17 120/69 12/28/19 21:20 135 H 18 121/76 12/28/19 21:00 129 H 18 115/78 12/28/19 20:40 156 H 16 115/78 12/28/19 20:30 152 H 18 150/80 12/28/19 20:20 154 H 16 12/28/19 19:41 98.1 F 124 H 20 164/89 Pulse Ox 12/29/19 10:21 92 L 12/29/19 09:48 12/29/19 09:17 98 12/29/19 04:00 99 12/29/19 01:07 12/29/19 00:39 99 12/28/19 22:40 99 12/28/19 22:20 99 12/28/19 22:00 100 12/28/19 21:40 100 12/28/19 21:20 99 12/28/19 21:00 100 12/28/19 20:40 99 12/28/19 20:30 100 12/28/19 20:20 99 12/28/19 19:41 97 Intake and Output 12/28/19 12/29/19 12/29/19 22:59 06:59 14:59 Intake Total 500 58.676 Balance 500 58.676 Intake: Intake, IV Titration 300 58.676 Amount Heparin Sod,Pork in 0.45% 58.676 NaCl 25,000 unit In 0.45 % NaCl 1 250ml.bag @ 6 UNITS/KG/HR 8.981 mls/hr IV .Q24H [facility] Rx#: [id number] Magnesium Sulfate-D5w Pmx 100 1 gm In Dextrose/Water 1 100ml.bag @ 100 mls/hr IVPB ONCE ONE Rx#: [id number] Sodium Chloride 0.9% 1, 200 000 ml @ 75 mls/hr IV . [id number] [facility] Rx#:[id number] Oral 200 Other: # Voids 1 Weight 149.685 kg 149.685 kg PHYSICAL EXAMINATION: Patient is lying in the bed comfortably, no acute distress, awake alert and oriented. Morbidly obese. HEENT: Normocephalic. Neck is supple. Pupils reactive. Nostrils clear. Oral cavity is moist. Ears reveal no drainage. Neck reveals no JVD, carotid bruits, or thyromegaly. CHEST EXAMINATION: Trachea is central. Symmetrical expansion. Bibasilar diminished air entry. Lung arita clear to auscultation and percussion. CARDIAC: Normal S1, S2 with no gallops. No murmurs ABDOMEN: Soft. Bowel sounds normal. No organomegaly. No abdominal bruits. Extremities: reveal no edema. No clubbing or cyanosis Neurologically awake, alert, oriented x3 with well-coordinated movements. No focal deficits noted Skin: No rash or skin lesions. Psychiatric: Coperative. Nonsuicidal Musculoskeletal: No joint swelling or deformity. Normal range of motion. Results CBC & Chem 7: 12/29/19 05:29 12/29/19 05:29 Labs: Abnormal Lab Results - Last 24 Hours (Table) 12/28/19 12/28/19 12/28/19 Range/Units 20:09 20:09 23:03 Sodium 136 L (137-145) mmol/L Creatinine 0.43 L (0.52-1.04) mg/dL Glucose 246 H (74-99) mg/dL POC Glucose (mg/dL) (75-99) mg/dL Magnesium 1.5 L (1.6-2.3) mg/dL TSH <0.015 L (0.465-4.680) mIU/L Free T4 4.32 H (0.78-2.19) ng/dL Free T3 pg/mL 19.5 H (2.8-5.3) pg/ml Urine Appearance Cloudy H (Clear) Urine Glucose (UA) 4+ H (Negative) Ur Leukocyte Esterase Moderate H (Negative) Urine WBC 11 H (0-5) /hpf Ur Squamous Epith Cells 5 H (0-4) /hpf Urine Bacteria Rare H (None) /hpf Urine Mucus Rare H (None) /hpf U Marijuana (THC) Screen Detected H (NotDetected) 12/29/19 12/29/19 12/29/19 Range/Units 01:27 05:29 06:21 Sodium 135 L (137-145) mmol/L Creatinine 0.36 L (0.52-1.04) mg/dL Glucose 150 H (74-99) mg/dL POC Glucose (mg/dL) 224 H 148 H (75-99) mg/dL Magnesium (1.6-2.3) mg/dL TSH (0.465-4.680) mIU/L Free T4 (0.78-2.19) ng/dL Free T3 pg/mL (2.8-5.3) pg/ml Urine Appearance (Clear) Urine Glucose (UA) (Negative) Ur Leukocyte Esterase (Negative) Urine WBC (0-5) /hpf Ur Squamous Epith Cells (0-4) /hpf Urine Bacteria (None) /hpf Urine Mucus (None) /hpf U Marijuana (THC) Screen (NotDetected) Thrombosis Risk Factor Assmnt - DVT/VTE Prophylaxis DVT/VTE Prophylaxis: Pharmacologic Prophylaxis ordered - Choose All That Apply Any of the Below Risk Factors Present?: Yes Each Factor Represents 1 point: or Other Risk Factors: No Other congenital or acquired thrombophilia - If yes, enter type in comment: No Thrombosis Risk Factor Assessment Total Risk Factor Score: 1 Thrombosis Risk Factor Assessment Level: Low Risk Assessment and Plan Assessment: New onset atrial fibrillation with rapid ventricular rate. Hyperglycemia with uncontrolled diabetes type 2 Graves' disease. Currently off methimazole for the past 2 weeks Marijuana use Asthma stable Anxiety Morbid obesity BMI 48.7 DVT prophylaxis. Plan: Patient will be continued on heparin drip. Cardizem drip has been discontinued and patient was converted to sinus rhythm now. Continue with metoprolol. Cardiology is following. Follow-up 2-D echocardiogram. Continue with Levemir at bedtime and insulin sliding scale and titrate dose as needed. Continue with telemetry monitoring and further recommendations based on the clinical course. Time with Patient: Greater than 30
[2019-12-30] MEDS: SODIUM CHLORIDE 0.9% 1,000 ML IV SCH (00:11)
[2019-12-30] MEDS: HEPARIN SODIUM,PORCINE 5,000 UNIT/ML 1 ML VIAL IV PRN (05:10)
[2019-12-30 06:09] LABS: Glucose,Whole Blood 159 mg/dL (75-99)
[2019-12-30 06:46] LABS: Basophils % (A) 0 %; Eosinophils # (A) 0.5 k/uL (0-0.7); Eosinophils % (A) 6 %; HCT 38.8 % (34.0-46.0); Lymphocytes # (A) 2.8 k/uL (1.0-4.8); Lymphocytes % (A) 32 %; MCH 28.2 pg (25.0-35.0); MCHC 33.4 g/dL (31.0-37.0); MCV 84.3 fL (80.0-100.0); Mean Platelet Volume 8.8; Monocytes # (A) 0.5 k/uL (0-1.0); Monocytes % (A) 6 %; Neutrophils # (A) 4.6 k/uL (1.3-7.7); Neutrophils % (A) 53 %; Platelet Count 277 k/uL (150-450); RBC 4.61 m/uL (3.80-5.40); RDW 12.3 % (11.5-15.5); WBC 8.7 k/uL (3.8-10.6)
[2019-12-30 09:05] VITALS: BP 126/74; RESP 16; TEMP 97.2
[2019-12-30] MEDS: METOPROLOL SUCCINATE (ER) 25 MG TAB.ER.24H PO SCH (09:17)
[2019-12-30] MEDS: METHIMAZOLE 5 MG TAB PO SCH (09:18)
[2019-12-30 09:33] VITALS: PULSE 107
[2019-12-30] MEDS ORDERED: APIXABAN 5 MG TAB PO SCH (09:45)
[2019-12-31] MEDS ORDERED: METOPROLOL SUCCINATE (ER) 50 MG TAB.ER.24H PO SCH (09:00)
--- NOTE | 2020-01-01 12:38 | P.DS ---
Providers Date of admission: 12/28/19 21:02 Expected date of discharge: 12/30/19 Attending physician: Favian Mars Consults: 12/28/19 21:01 Consult Physician Routine Consulting Provider: Kasi Way Consult Reason/Comments: New-onset atrial fibrillation with RVR Do you want consulting provider notified?: Yes Primary care physician: Steph [facility] Course: Final diagnosis New onset atrial fibrillation with rapid ventricular rate. Hypomagnesemia Hyperglycemia with uncontrolled diabetes type 2 Graves' disease. Currently off methimazole for the past 2 weeks Marijuana use Asthma stable Anxiety Morbid obesity BMI 48.7 DVT prophylaxis Discharge disposition Patient is being discharged in a stable condition with guarded prognosis to home and will follow up with Dr. Choi and Dr. Meraz in the outpatient setting upon discharge. Patient will also follow up with cardiology Dr. Way in 1-2 weeks. Patient will resume methimazole, was started on Metoprolol and will be started on Eliquis upon discharge. Total time taken is 35 minutes. History of present illness Patient is a 24-year-old female with a known history of diabetes type 2 insulin- dependent, asthma, hyperthyroidism currently on methimazole which she has not been taking for the past 1 week, anxiety and morbid obesity came to ER with complaints of heart racing of fast. Patient has been having intermittent symptoms for the past 3 or 4 days. She is diagnosed with Graves' disease and is prescribed methimazole but has not been on this medication for the past 2 weeks. Denied any complaints of chest pain. No complaints of shortness of breath. No nausea vomiting or abdominal pain. No leg swelling. Denied any recent illnesses. No sick contacts at home. EKG showed atrial fibrillation with rapid regular rate TSH less than 0.015 and free T4 4 0.3 to UDS positive for marijuana Blood sugar is better than 250 on admission. Patient was started on heparin drip and Cardizem drip. Currently rate is controlled and Cardizem drip has been discontinued. Patient was converted back to sinus rhythm last night. Patient was started on metoprolol. Currently patient denies any chest pain, shortness of breath, or palpitations. Patient is afebrile. Patient denies any nausea or vomiting and has been tolerating diet. Currently patients condition is stable and is ready for discharge today. On exam vital signs are stable. Temp is 97.2F, pulse is 106 , resp are 16 , blood pressure is 126/74 , and oxygen saturation is 100 % on room air. Cardio S1, S2 are muffled. Respiratory system shows diminished breath sounds at the bases with no wheezing or rhonchi noted. Abdomen is soft, obese, and non- tender. Nervous system shows no focal deficits. Please refer to medication reconciliation sheet for a list of medications. Patient Condition at Discharge: Stable Plan - Discharge Summary New Discharge Prescriptions: New Apixaban [Eliquis] 5 mg PO BID 30 Days #60 tab Metoprolol Succinate (ER) [Toprol XL] 25 mg PO DAILY 30 Days #30 tab.er.24h Continue Sun-Hwwq-Cnady Acid [-U Capsule (formulary)] 1 cap PO HS Insulin Glargine [Lantus] 10 - 20 unit SQ HS Methimazole 10 mg PO BID Albuterol Sulfate [Ventolin HFA] 1 - 2 puff INHALATION RT-Q6H PRN PRN Reason: Shortness Of Breath Discharge Medication List Tsn-Neyb-Egvcx Acid [-U Capsule (formulary)] 1 cap PO HS 05/09/19 [History] Insulin Glargine [Lantus] 10 - 20 unit SQ HS 08/30/19 [History] Methimazole 10 mg PO BID 12/28/19 [History] Albuterol Sulfate [Ventolin HFA] 1 - 2 puff INHALATION RT-Q6H PRN 12/29/19 [History] Apixaban [Eliquis] 5 mg PO BID 30 Days #60 tab 12/30/19 [Rx] Metoprolol Succinate (ER) [Toprol XL] 25 mg PO DAILY 30 Days #30 tab.er.24h 12/30/19 [Rx] Follow up Appointment(s)/Referral(s): Radha Choi MD [Primary Care Provider] - 01/05/20 2:30 am Kenneth Meraz MD [REFERRING] - 1 Week ([facility]- Office closed today, please call to schedule a follow-up appointment next week Thursday - 8am-4pm) Kasi Way MD [STAFF PHYSICIAN] - 10 Days (Office will call with a follow up appointment.) Patient Instructions/Handouts: A-fib (Atrial Fibrillation) (DC), Hyperthyroidism (DC), Safe Use of Anticoagulants (DC) Activity/Diet/Wound Care/Special Instructions: Prior authorization submitted for [facility] - follow up with PCP/insurance company regarding status of prior authorization before next refill Activity Limited until follow-up Continue current diet Follow-up with primary care provider Follow up with endocrine Follow up with cardiology Discharge Disposition: HOME SELF-CARE
== END 2019-12-30 11:38 | disposition home or self-care (01) | DRG 309 ==
LOC: EC 19:39 → 3SCARD 21:02
PROVIDERS: ADMIT Internal Medicine; ATTEND Internal Medicine
DX: I48.0 Paroxysmal atrial fibrillation (principal); Z68.42 Body mass index [BMI] 45.0-49.9, adult; E03.9 Hypothyroidism, unspecified; E05.00 Thyrotoxicosis with diffuse goiter without thyrotoxic crisis or storm; E11.65 Type 2 diabetes mellitus with hyperglycemia; E66.01 Morbid (severe) obesity due to excess calories; J45.909 Unspecified asthma, uncomplicated; I10 Essential (primary) hypertension; F41.9 Anxiety disorder, unspecified; G43.909 Migraine, unspecified, not intractable, without status migrainosus; E83.42 Hypomagnesemia; Z79.4 Long term (current) use of insulin; Z79.899 Other long term (current) drug therapy; Z82.49 Family history of ischemic heart disease and other diseases of the circulatory system; Z82.5 Family history of asthma and other chronic lower respiratory diseases; Z83.3 Family history of diabetes mellitus
CPT/HCPCS: 36415; 71046; 80048; 80053; 80306; 81001; 81025; 83735; 84439; 84443; 84480; 84481; 84484; 85025; 85379; 85610; 85730; 93005; 93306; 96361; 96365; 96366; 96368; 96376; 99291

== ENCOUNTER → 2020-10-15 | Outpatient (CLI) | payer OTHER | END | disposition home or self-care (01) | LOC: LABWHC1 14:51 | PROVIDERS: ATTEND Internal Medicine | DX: N91.2 Amenorrhea, unspecified (principal) | CPT/HCPCS: 36415; 84702 ==

== ENCOUNTER 2020-10-24 12:31 | Emergency (ER) | payer OTHER ==
[2020-10-24 12:36] VITALS: RESP 18; TEMP 98.2
--- NOTE | 2020-10-24 14:24 | US ---
EXAMINATION TYPE: US transvaginal DATE OF EXAM: 10/24/2020 COMPARISON: NONE CLINICAL HISTORY: pain. TECHNIQUE: Transvaginal (TV). Date of LMP: 08/19/2020 EXAM MEASUREMENTS: Uterus: 9.6 x 5.4 x 5.8 cm Endometrial Stripe: 2.1 cm Right Ovary: 2.4 x 1.5 x 2.4 cm Left Ovary: 3.6 x 1.4 x 3.1 cm 1. Uterus: Anteverted wnl 2. Endometrium: thickened at 2.1 cm 3. Right Ovary: wnl, located posterior to uterus and unable to prove flow because of position. Ovary is not enlarged. 4. Left Ovary: wnl Spectral, color and waveform doppler imaging shows arterial and venous flow within the left ovary. 5. Bilateral Adnexa: wnl 6. Posterior cul-de-sac: no free fluid IMPRESSION: Thickened endometrium is present, follow-up is recommended.
[2020-10-24 14:28] LABS: Appearance,Urine Clear (Clear); Bilirubin,Urine Negative (Negative); Blood,Urine Negative (Negative); Color,Urine Yellow; Glucose,Urine (UA) Negative (Negative); Ketones,Urine Negative (Negative); Leukocyte Esterase,Urine Negative (Negative); Nitrite,Urine Negative (Negative); Protein,Urine Negative (Negative); Specific Gravity,Urine 1.018 (1.001-1.035); Urobilinogen,Urine <2.0 mg/dL (<2.0)
--- NOTE | 2020-10-24 14:47 | ED ---
Abdominal Pain HPI - General Chief Complaint: Abdominal Pain Stated Complaint: Abd pain Time Seen by Provider: 10/24/20 13:24 Source: patient, RN notes reviewed Mode of arrival: ambulatory Limitations: no limitations - History of Present Illness Initial Comments: 25-year-old female presents emergency from chief complaint of mild lower abdominal cramping. Patient states that she concerned she may be or having ovarian cyst. No nausea and diarrhea constipation no dysuria no hematuria she is late for her menstrual cycle. Patient states that she did have test 10 days ago which was negative. Patient offers no complaints. - Related Data Home Medications Medication Instructions Recorded Confirmed Mbg-Rfru-Xctly Acid 1 cap PO HS 05/09/19 12/28/19 [-U Capsule (formulary)] Insulin Glargine [Lantus] 10 - 20 unit SQ HS 08/30/19 12/28/19 methIMAzole [Methimazole] 10 mg PO BID 12/28/19 12/28/19 Albuterol Sulfate [Ventolin HFA] 1 - 2 puff INHALATION RT-Q6H PRN 12/29/19 12/29/19 Previous Rx's Medication Instructions Recorded Apixaban [Eliquis] 5 mg PO BID 30 Days #60 tab 12/30/19 Metoprolol Succinate (ER) [Toprol 25 mg PO DAILY 30 Days #30 12/30/19 XL] tab.er.24h Allergies Allergy/AdvReac Type Severity Reaction Status Date / Time No Known Allergies Allergy Verified 10/24/20 12:36 Review of Systems ROS Statement: Those systems with pertinent positive or pertinent negative responses have been documented in the HPI. ROS Other: All systems not noted in ROS Statement are negative. Past Medical History Past Medical History: Asthma, Diabetes Mellitus Additional Past Medical History / Comment(s): migraines History of Any Multi-Drug Resistant Organisms: None Reported Past Surgical History: No Surgical Hx Reported Past Anesthesia/Blood Transfusion Reactions: No Reported Reaction Past Psychological History: Anxiety Past Alcohol Use History: None Reported Past Drug Use History: Marijuana - Past Family History Mother Family Medical History: Asthma, Coronary Artery Disease (CAD) Father Family Medical History: Diabetes Mellitus General Exam Limitations: no limitations General appearance: alert, in no apparent distress Head exam: Present: atraumatic, normocephalic, normal inspection Eye exam: Present: normal appearance, PERRL, EOMI. Absent: scleral icterus, conjunctival injection, periorbital swelling ENT exam: Present: normal exam, normal oropharynx, mucous membranes moist Neck exam: Present: normal inspection, full ROM. Absent: tenderness, m eningismus, lymphadenopathy Respiratory exam: Present: normal lung sounds bilaterally. Absent: respiratory distress, wheezes, rales, rhonchi, stridor Cardiovascular Exam: Present: regular rate, normal rhythm, normal heart sounds. Absent: systolic murmur, diastolic murmur, rubs, gallop, clicks GI/Abdominal exam: Present: soft, normal bowel sounds. Absent: distended, tenderness, guarding, rebound, rigid Neurological exam: Present: alert, oriented X3, CN II-XII intact Skin exam: Present: warm, dry, intact, normal color. Absent: rash Course Vital Signs 10/24/20 12:32 Temperature 98.2 F Pulse Rate 88 Respiratory 18 Rate Blood Pressure 154/80 O2 Sat by Pulse 97 Oximetry Medical Decision Making - Medical Decision Making Ultrasound shows thickened endometrium, otherwise unremarkable. Patient urinalysis is negative urine hCG negative. Patiently discharges stable condition return parameters discussed. - Lab Data Lab Results 10/24/20 10/24/20 Range/Units 14:00 14:00 Urine Color Yellow Urine Appearance Clear (Clear) Urine pH 7.0 (5.0-8.0) Ur Specific [place] 1.018 (1.001-1.035) Urine Protein Negative (Negative) Urine Glucose (UA) Negative (Negative) Urine Ketones Negative (Negative) Urine Blood Negative (Negative) Urine Nitrite Negative (Negative) Urine Bilirubin Negative (Negative) Urine Urobilinogen <2.0 (<2.0) mg/dL Ur Leukocyte Esterase Negative (Negative) Urine HCG, Qual Not Detected (Not Detectd) Disposition Clinical Impression: Abdominal pain Disposition: HOME SELF-CARE Condition: Stable Instructions (If sedation given, give patient instructions): Abdominal Pain (ED) Additional Instructions: Please return to the Emergency Department if symptoms worsen or any other concerns. Is patient prescribed a controlled substance at d/c from ED?: No Referrals: Radha Choi MD [Primary Care Provider] - 1-2 days Time of Disposition: 14:47
[2020-10-24 14:56] VITALS: BP 137/80; PULSE 86
== END 2020-10-24 14:55 | disposition home or self-care (01) ==
LOC: EC 12:31
DX: R10.30 Lower abdominal pain, unspecified (principal); N85.8 Other specified noninflammatory disorders of uterus; Z32.02 Encounter for pregnancy test, result negative; J45.909 Unspecified asthma, uncomplicated; E11.9 Type 2 diabetes mellitus without complications; Z79.4 Long term (current) use of insulin
CPT/HCPCS: 76830; 81003; 81025; 93976; 99284

== ENCOUNTER 2021-10-08 15:49 | Emergency (ER) | payer OTHER ==
[2021-10-08 16:44] VITALS: BP 138/80; PULSE 85; RESP 19; TEMP 97.1
[2021-10-08] MEDS ORDERED: ONDANSETRON 4 MG/2 ML VIAL IVP STA (20:12)
[2021-10-08] MEDS ORDERED: FAMOTIDINE 20 MG/2 ML VIAL IV STA (20:13)
[2021-10-08] MEDS ORDERED: DEXTROSE 5%-0.9% NACL 1,000 ML IV ONE (20:45)
[2021-10-08 21:24] LABS: Basophils % (A) 0 %; Eosinophils # (A) 0.3 k/uL (0-0.7); Eosinophils % (A) 3 %; HCT 32.4 % (34.0-46.0); HGB 11.2 gm/dL (11.4-16.0); Lymphocytes # (A) 1.9 k/uL (1.0-4.8); Lymphocytes % (A) 19 %; MCH 29.2 pg (25.0-35.0); MCHC 34.7 g/dL (31.0-37.0); Mean Platelet Volume 8.9; Monocytes # (A) 0.4 k/uL (0-1.0); Monocytes % (A) 4 %; Neutrophils # (A) 7.4 k/uL (1.3-7.7); Neutrophils % (A) 73 %; Platelet Count 296 k/uL (150-450); RBC 3.85 m/uL (3.80-5.40); RDW 14.5 % (11.5-15.5); WBC 10.2 k/uL (3.8-10.6)
[2021-10-08 21:35] LABS: ALT 20 U/L (4-34); AST 20 U/L (14-36); African American GFR (CKD) >90 (>60 ml/min/1.73 sqM); Albumin 3.9 g/dL (3.5-5.0); Alkaline Phosphatase 50 U/L (38-126); Amylase 48 U/L (30-110); Anion Gap 8 mmol/L; Blood Urea Nitrogen 5 mg/dL (7-17); Calcium 8.9 mg/dL (8.4-10.2); Carbon Dioxide 20 mmol/L (22-30); Chloride 105 mmol/L (98-107); Glucose 165 mg/dL (74-99); Lipase 28 U/L (23-300); Non-African American GFR(CKD) >90 (>60 ml/min/1.73 sqM); Potassium 3.8 mmol/L (3.5-5.1); Sodium 133 mmol/L (137-145); Total Bilirubin 0.7 mg/dL (0.2-1.3); Total Protein 7.3 g/dL (6.3-8.2)
[2021-10-08 21:48] LABS: Partial Thromboplastin Time 23.5 sec (22.0-30.0); Prothrombin Time 10.6 sec (9.0-12.0)
[2021-10-08 21:51] LABS: HCG,Quantitative Serum 3516.5 mIU/mL
--- NOTE | 2021-10-08 22:41 | US ---
EXAMINATION TYPE: Transabdominal DATE OF EXAM: 10/08/2021 10:10 PM COMPARISON: Prior US. This is first US for this . CLINICAL HISTORY: new , concern for vaginal bleeding. Concern for vaginal bleeding. . EXAM PERFORMED: Transvaginal (TV) and Transabdominal (TA) EXAM MEASUREMENTS: GESTATIONAL AGE / DATING Physician Established: Not yet established. Dates by LMP: (6 weeks/5 days) EDC: 05/29/2022 Dates by First Scan: This is first scan. Dates by Current Scan for: Gestational sac measures out of range at this time. MATERNAL ANATOMY Uterus: 10.7 x 6.9 x 6.1 cm. Anteverted. Right Ovary: Not seen. Left Ovary: 3.9 x 2.5 x 2.2 cm. Area of mixed echogenicity with vascularity seen: 2.2 x 1.4 x 1.6 cm. Post CDS / Adnexa: Appear wnl. Presence of free fluid: None seen. Presence of corpus luteal cyst: Possible- Area of mixed echogenicity with vascularity seen within the left ovary: 2.2 x 1.4 x 1.6 cm. Presence of subchorionic bleed: Not seen. GESTATION / SURVEY MSD: 0.79 cm. (OOR) Yolk Sac (normal less than 6mm): 2.3 mm. IUP: Gestational sac that measures OOR and yolk sac seen at this time. Date of LMP: 08/22/2021 Beta HcG (if available): Not available. IMPRESSION: There is early intrauterine . Yolk sac is present. Follow-up exam recommended in 10 days to confirm a living fetus.
[2021-10-08 22:50] LABS: Appearance,Urine Clear (Clear); Bilirubin,Urine Negative (Negative); Blood,Urine Negative (Negative); Color,Urine Yellow; Glucose,Urine (UA) 2+ (Negative); Leukocyte Esterase,Urine Negative (Negative); Mucus,Urine Many /hpf; Nitrite,Urine Negative (Negative); Protein,Urine 1+ (Negative); RBC,Urine 1 /hpf (0-5); Squamous Epithelial Cell,Urine 3 /hpf (0-4); WBC,Urine 2 /hpf (0-5)
[2021-10-08 23:34] LABS: Ketones,Urine 4+ (Negative)
--- NOTE | 2021-10-08 23:39 | ED ---
General Adult HPI - General Chief complaint: Nausea/Vomiting/Diarrhea Stated complaint: Early preg. nausea, and dizziness Time Seen by Provider: 10/08/21 19:45 Source: patient, RN notes reviewed, old records reviewed Mode of arrival: ambulatory Limitations: no limitations - History of Present Illness Initial comments: Patient is a 26-year-old female with past medical history remarkable for asthma who presents emergency Department with multiple complaints. She is having mild headache that is a belt-like sensation around her head associated with nausea and nonbilious nonbloody emesis. This been ongoing for 1-3 days. She also endorses some possible blood in her stool or vaginal bleeding. She recently was diagnosed as being . Based on LMP, she is approximately 4-6 weeks gestation. She denies any abdominal pain and cramping. Denies any history of STDs. Denies any diarrhea. Denies any chest pain, shortness of breath. Patient was not vaccinated for COVID-19. She is having URI symptoms such as rhinorrhea and cough. She presents because she does not feel well. - Related Data Home Medications Medication Instructions Recorded Confirmed Ergocalciferol (Vitamin D2) 1,250 mcg PO MORALES 10/08/21 10/08/21 [Drisdol (50,000 Iu)] Insulin Glargine,Hum.rec.anlog 15 unit SQ HS 10/08/21 10/08/21 [Lantus Solostar Pen] Losartan [Cozaar] 50 mg PO DAILY 10/08/21 10/08/21 metFORMIN HCL [Glucophage] 1,000 mg PO BID 10/08/21 10/08/21 Previous Rx's Medication Instructions Recorded Pnv No.95/Ferrous Fum/Folic AC 1 each PO DAILY #30 tablet 10/08/21 [ Multivitamin Tablet] Allergies Allergy/AdvReac Type Severity Reaction Status Date / Time No Known Allergies Allergy Verified 10/08/21 21:49 Review of Systems ROS Statement: Those systems with pertinent positive or pertinent negative responses have been documented in the HPI. Review of Systems: CONST: Denies fever EYES: Denies blurry vision ENT: Endorses nasal congestion C/V: Denies Chest pain RESP: Denies shortness of breath GI: Endorses nausea and vomiting : Denies dysuria SKIN: Denies rash. MSK: Denies joint pain. NEURO: Endorses headache ROS Other: All systems not noted in ROS Statement are negative. Past Medical History Past Medical History: Asthma, Diabetes Mellitus Additional Past Medical History / Comment(s): migraines History of Any Multi-Drug Resistant Organisms: None Reported Past Surgical History: No Surgical Hx Reported Past Anesthesia/Blood Transfusion Reactions: No Reported Reaction Past Psychological History: Anxiety Past Alcohol Use History: None Reported Past Drug Use History: Marijuana - Past Family History Mother Family Medical History: Asthma, Coronary Artery Disease (CAD) Father Family Medical History: Diabetes Mellitus General Exam - General Exam Comments Initial Comments: General: Appears in no acute distress. HEAD: Normal with no signs of head trauma. EYES: PERRLA, EOMI, conjunctiva normal, no discharge. ENT: Hearing grossly intact, normal oropharynx. Active rhinorrhea. Mucous membranes are mildly dry. RESPIRATORY: Clear breath sounds bilaterally. No wheezes, rales, or rhonchi. C/V: Tachycardic with a regular rhythm. S1 and S2 auscultated. Peripheral pulses are 2+ and intact throughout. ABD: Abd is soft, nontender, nondistended EXT: Normal range of motion, no obvious deformity SKIN: No rashes or lesions observed on exposed skin. NEURO: Alert and oriented x 4. Cranial nerves II-XII intact. No focal sensory or strength deficits. Limitations: no limitations Course Vital Signs 10/08/21 16:39 Temperature 97.1 F L Pulse Rate 85 Respiratory 19 Rate Blood Pressure 138/80 O2 Sat by Pulse 97 Oximetry Medical Decision Making - Medical Decision Making Based on the patient's presentation and physical exam, I would like to obtain basic screening labs to ensure the patient is not dehydrated. We will also obtain a urinalysis, type and screen, quantitative beta hCG. Pelvic ultrasound will also be obtained to evaluate for definitive IUP. The patient's symptoms, she'll be treated with 1 L D5 normal saline bolus as well as IV Pepcid and Zofran. She was in agreement this plan. Laboratory studies are remarkable for a normocytic anemia with hemoglobin of 11.2, which appears to be somewhat stable. Laboratory studies are remarkable for a mild hyponatremia of 133. Urinalysis shows no infection but 4+ ketones and 2+ glucose, which is likely secondary to the D5 drip. Covid is negative. Ultrasound reveals a yolk sac of undetermined age and repeat in 10 days is recom mended. On reevaluation, patient's headache is resolved. She is improved. She is time by mouth intake. She'll longer feels nauseous. She would like to go home. I believe this is reasonable and she has a prescheduled [facility] appointment within the next few weeks. I updated her on the results of laboratory studies and imaging. I will provide the patient with a prescription for vitamins. I instructed the patient to follow up with their PCP in the next 3 days. I explained that the patient should return to the emergency department if they experience any worsening symptoms. Strict return precautions were discussed with the patient. The patient expressed understanding of these instructions. I answered all questions that the patient had. The patient was discharged home in good condition with their prescriptions and follow up information. - Lab Data Result diagrams: 10/08/21 20:50 10/08/21 20:50 Lab Results 10/08/21 10/08/21 10/08/21 Range/Units 20:50 20:50 20:50 WBC 10.2 (3.8-10.6) k/uL RBC 3.85 (3.80-5.40) m/uL Hgb 11.2 L (11.4-16.0) gm/dL Hct 32.4 L (34.0-46.0) % MCV 84.0 (80.0-100.0) fL MCH 29.2 (25.0-35.0) pg MCHC 34.7 (31.0-37.0) g/dL RDW 14.5 (11.5-15.5) % Plt Count 296 (150-450) k/uL MPV 8.9 Neutrophils % 73 % Lymphocytes % 19 % Monocytes % 4 % Eosinophils % 3 % Basophils % 0 % Neutrophils # 7.4 (1.3-7.7) k/uL Lymphocytes # 1.9 (1.0-4.8) k/uL Monocytes # 0.4 (0-1.0) k/uL Eosinophils # 0.3 (0-0.7) k/uL Basophils # 0.0 (0-0.2) k/uL PT 10.6 (9.0-12.0) sec INR 1.0 (<1.2) APTT 23.5 (22.0-30.0) sec Sodium 133 L (137-145) mmol/L Potassium 3.8 (3.5-5.1) mmol/L Chloride 105 (98-107) mmol/L Carbon Dioxide 20 L (22-30) mmol/L Anion Gap 8 mmol/L BUN 5 L (7-17) mg/dL Creatinine 0.38 L (0.52-1.04) mg/dL Est GFR (CKD-EPI)AfAm >90 (>60 ml/min/1.73 sqM) Est GFR (CKD-EPI)NonAf >90 (>60 ml/min/1.73 sqM) Glucose 165 H (74-99) mg/dL Calcium 8.9 (8.4-10.2) mg/dL Total Bilirubin 0.7 (0.2-1.3) mg/dL AST 20 (14-36) U/L ALT 20 (4-34) U/L Alkaline Phosphatase 50 (38-126) U/L Total Protein 7.3 (6.3-8.2) g/dL Albumin 3.9 (3.5-5.0) g/dL Amylase 48 (30-110) U/L Lipase 28 (23-300) U/L HCG, Quant 3516.5 mIU/mL Urine Color Urine Appearance (Clear) Urine pH (5.0-8.0) Ur Specific [place] (1.001-1.035) Urine Protein (Negative) Urine Glucose (UA) (Negative) Urine Ketones (Negative) Urine Blood (Negative) Urine Nitrite (Negative) Urine Bilirubin (Negative) Urine Urobilinogen (<2.0) mg/dL Ur Leukocyte Esterase (Negative) Urine RBC (0-5) /hpf Urine WBC (0-5) /hpf Ur Squamous Epith Cells (0-4) /hpf Urine Mucus (None) /hpf Coronavirus (PCR) (Not Detectd) 10/08/21 10/08/21 Range/Units 21:06 22:27 WBC (3.8-10.6) k/uL RBC (3.80-5.40) m/uL Hgb (11.4-16.0) gm/dL Hct (34.0-46.0) % MCV (80.0-100.0) fL MCH (25.0-35.0) pg MCHC (31.0-37.0) g/dL RDW (11.5-15.5) % Plt Count (150-450) k/uL MPV Neutrophils % % Lymphocytes % % Monocytes % % Eosinophils % % Basophils % % Neutrophils # (1.3-7.7) k/uL Lymphocytes # (1.0-4.8) k/uL Monocytes # (0-1.0) k/uL Eosinophils # (0-0.7) k/uL Basophils # (0-0.2) k/uL PT (9.0-12.0) sec INR (<1.2) APTT (22.0-30.0) sec Sodium (137-145) mmol/L Potassium (3.5-5.1) mmol/L Chloride (98-107) mmol/L Carbon Dioxide (22-30) mmol/L Anion Gap mmol/L BUN (7-17) mg/dL Creatinine (0.52-1.04) mg/dL Est GFR (CKD-EPI)AfAm (>60 ml/min/1.73 sqM) Est GFR (CKD-EPI)NonAf (>60 ml/min/1.73 sqM) Glucose (74-99) mg/dL Calcium (8.4-10.2) mg/dL Total Bilirubin (0.2-1.3) mg/dL AST (14-36) U/L ALT (4-34) U/L Alkaline Phosphatase (38-126) U/L Total Protein (6.3-8.2) g/dL Albumin (3.5-5.0) g/dL Amylase (30-110) U/L Lipase (23-300) U/L HCG, Quant mIU/mL Urine Color Yellow Urine Appearance Clear (Clear) Urine pH 6.0 (5.0-8.0) Ur Specific [place] 1.030 (1.001-1.035) Urine Protein 1+ H (Negative) Urine Glucose (UA) 2+ H (Negative) Urine Ketones 4+ H (Negative) Urine Blood Negative (Negative) Urine Nitrite Negative (Negative) Urine Bilirubin Negative (Negative) Urine Urobilinogen 3.0 (<2.0) mg/dL Ur Leukocyte Esterase Negative (Negative) Urine RBC 1 (0-5) /hpf Urine WBC 2 (0-5) /hpf Ur Squamous Epith Cells 3 (0-4) /hpf Urine Mucus Many H (None) /hpf Coronavirus (PCR) Not Detected (Not Detectd) Disposition Clinical Impression: Dehydration, , Nausea & vomiting Disposition: HOME SELF-CARE Condition: Good Instructions (If sedation given, give patient instructions): Acute Nausea and Vomiting (ED) Prescriptions: Pnv No.95/Ferrous Fum/Folic AC [ Multivitamin Tablet] 1 each PO DAILY #30 tablet Is patient prescribed a controlled substance at d/c from ED?: No Referrals: Lizzie Oliva MD [Primary Care Provider] - 1-2 days
== END 2021-10-09 00:12 | disposition home or self-care (01) ==
LOC: EC 15:49
DX: O99.281 Endocrine, nutritional and metabolic diseases complicating pregnancy, first trimester (principal); E86.0 Dehydration; O21.9 Vomiting of pregnancy, unspecified; O24.111 Pre-existing type 2 diabetes mellitus, in pregnancy, first trimester; O99.511 Diseases of the respiratory system complicating pregnancy, first trimester; J45.909 Unspecified asthma, uncomplicated; O99.321 Drug use complicating pregnancy, first trimester; F12.90 Cannabis use, unspecified, uncomplicated; Z79.4 Long term (current) use of insulin; Z79.84 Long term (current) use of oral hypoglycemic drugs; Z79.899 Other long term (current) drug therapy; Z3A.01 Less than 8 weeks gestation of pregnancy
CPT/HCPCS: 36415; 80053; 82150; 83690; 85025; 85610; 85730; 81001; 84702; 87635; 76801; 76817; 96374; 96375; 96361 ×3; 99284; J2405

== ENCOUNTER 2022-01-02 09:15 | Emergency (ER) | payer OTHER ==
[2022-01-02 09:21] VITALS: BP 129/71; PULSE 87; RESP 16; TEMP 98.1
[2022-01-02] MEDS ORDERED: LIDOCAINE URO-JET JELLY 2% 5 ML KIT URETHRAL ONE (09:42)
--- NOTE | 2022-01-02 10:26 | ED ---
General Adult HPI - General Chief complaint: Urogenital Stated complaint: 17 wks preg, abd pain Time Seen by Provider: 01/02/22 09:22 Source: patient Mode of arrival: ambulatory Limitations: no limitations - History of Present Illness Initial comments: 26 year-old female patient who is 17 weeks , presents for evaluation of pain to her labia. States she has been having a lot of itching, states she has had yeast infections in the past and she knows that is what she has going on. She denies any recent antibiotic use. Has been having some white discharge. States she was scratching about three days ago and caused a scratch to her labia. States when she urinates it causes the area to burn. She did apply a diaper rash cream but it did not seem to help. She denies any frequency of urination. Denies any vaginal bleeding. - Related Data Home Medications Medication Instructions Recorded Confirmed Insulin Glargine,Hum.rec.anlog 15 unit SQ HS 10/08/21 01/02/22 [Lantus Solostar Pen] Albuterol Sulfate [Proair Hfa] 2 puff INHALATION RT-Q6H PRN 01/02/22 01/02/22 Aspirin EC [Ecotrin Low Dose] 81 mg PO DAILY 01/02/22 01/02/22 Insulin Aspart [NovoLOG Flexpen] 10 units SQ AC-TID 01/02/22 01/02/22 Pnv No.95/Ferrous Fum/Folic AC 1 tab PO DAILY 01/02/22 01/02/22 [ Multivitamin Tablet] Previous Rx's Medication Instructions Recorded Cephalexin [Keflex] 500 mg PO Q8HR 3 Days #9 cap 01/02/22 Miconazole 2% Vaginal Cream 1 applicator VAGINAL HS #45 gm 01/02/22 [Monistat 7] Allergies Allergy/AdvReac Type Severity Reaction Status Date / Time No Known Allergies Allergy Verified 01/02/22 10:28 Review of Systems ROS Statement: Those systems with pertinent positive or pertinent negative responses have been documented in the HPI. ROS Other: All systems not noted in ROS Statement are negative. Past Medical History Past Medical History: Asthma, Diabetes Mellitus Additional Past Medical History / Comment(s): migraines, graves disease History of Any Multi-Drug Resistant Organisms: None Reported Past Surgical History: No Surgical Hx Reported Past Anesthesia/Blood Transfusion Reactions: No Reported Reaction Past Psychological History: Anxiety Smoking Status: Never smoker Past Alcohol Use History: None Reported Past Drug Use History: Marijuana - Past Family History Mother Family Medical History: Asthma, Coronary Artery Disease (CAD) Father Family Medical History: Diabetes Mellitus General Exam Limitations: no limitations General appearance: alert, in no apparent distress, other (This is a well- developed, well-nourished adult female in no acute distress.) Respiratory exam: Present: normal lung sounds bilaterally. Absent: respiratory distress, wheezes, rales, rhonchi, stridor Cardiovascular Exam: Present: regular rate, normal rhythm, normal heart sounds. Absent: systolic murmur, diastolic murmur, rubs, gallop, clicks GI/Abdominal exam: Present: soft, normal bowel sounds. Absent: distended, tenderness, guarding, rebound, rigid External exam: Present: other (There is superficial laceration noted to the right labia majora over the mucosal surface. No surrounding swelling or redness, no drainage.) Neurological exam: Present: alert, oriented X3, CN II-XII intact Psychiatric exam: Present: normal affect, normal mood Skin exam: Present: warm, dry, intact, normal color. Absent: rash Course Vital Signs 01/02/22 09:16 Temperature 98.1 F Pulse Rate 87 Respiratory 16 Rate Blood Pressure 129/71 O2 Sat by Pulse 97 Oximetry Medical Decision Making - Medical Decision Making 26 year-old female patient, 17 weeks , presents for evaluation of laceration to her labia. States she has a yeast infection and has been scratching, this caused the laceration. Physical examination did reveal two small lacerations over the mucosal surface of the right labia majora, 1cm and 2cm. There was evidence for white vaginal discharge consistent with vaginal candidiasis. Bedside ultrasound was performed, did reveal movement and cardiac activity. Urinalysis did show elevated white blood cells though contaminated. We'll send for culture but we will treat with 3 days of Keflex. She also be treated with Monistat 7 for yeast infection. She is given topical lidocaine to apply prior to urinating. Also given rinse bottle to help with sy mptoms. She'll be discharged to follow-up with her [employer] for recheck as well as possible. Return parameters were discussed in detail. She verbalizes understanding and agrees with this plan. My attending is Dr. Armando. - Lab Data Lab Results 01/02/22 Range/Units 09:53 Urine Color Yellow Urine Appearance Cloudy H (Clear) Urine pH 6.0 (5.0-8.0) Ur Specific [place] 1.028 (1.001-1.035) Urine Protein 1+ H (Negative) Urine Glucose (UA) Negative (Negative) Urine Ketones 3+ H (Negative) Urine Blood Trace H (Negative) Urine Nitrite Negative (Negative) Urine Bilirubin Negative (Negative) Urine Urobilinogen 2.0 (<2.0) mg/dL Ur Leukocyte Esterase Large H (Negative) Urine RBC 19 H (0-5) /hpf Urine WBC 54 H (0-5) /hpf Ur Squamous Epith Cells 13 H (0-4) /hpf Urine Bacteria Rare H (None) /hpf Urine Mucus Moderate H (None) /hpf Disposition Clinical Impression: Vagina, candidiasis, Laceration of labia majora, UTI in Disposition: HOME SELF-CARE Condition: Good Instructions (If sedation given, give patient instructions): Laceration (ED), Yeast Infection (ED), Urinary Tract Infection in (ED) Additional Instructions: Complete medications as directed. Follow-up with your [employer] for recheck as soon as possible. Return for any new, worsening, or concerning symptoms. Prescriptions: Cephalexin [Keflex] 500 mg PO Q8HR 3 Days #9 cap Miconazole 2% Vaginal Cream [Monistat 7] 1 applicator VAGINAL HS #45 gm Is patient prescribed a controlled substance at d/c from ED?: No Referrals: Lizzie Oliva MD [Primary Care Provider] - 1-2 days Time of Disposition: 11:19
[2022-01-02 11:05] LABS: Appearance,Urine Cloudy (Clear); Bacteria,Urine Rare /hpf; Bilirubin,Urine Negative (Negative); Blood,Urine Trace (Negative); Color,Urine Yellow; Glucose,Urine (UA) Negative (Negative); Ketones,Urine 3+ (Negative); Leukocyte Esterase,Urine Large (Negative); Mucus,Urine Moderate /hpf; Nitrite,Urine Negative (Negative); Protein,Urine 1+ (Negative); RBC,Urine 19 /hpf (0-5); Specific Gravity,Urine 1.028 (1.001-1.035); Squamous Epithelial Cell,Urine 13 /hpf (0-4); WBC,Urine 54 /hpf (0-5)
== END 2022-01-02 13:01 | disposition home or self-care (01) ==
LOC: EC 09:15
DX: O71.4 Obstetric high vaginal laceration alone (principal); O98.812 Other maternal infectious and parasitic diseases complicating pregnancy, second trimester; O23.42 Unspecified infection of urinary tract in pregnancy, second trimester; N39.0 Urinary tract infection, site not specified; J45.909 Unspecified asthma, uncomplicated; E11.9 Type 2 diabetes mellitus without complications; F41.9 Anxiety disorder, unspecified; F12.90 Cannabis use, unspecified, uncomplicated; Z3A.17 17 weeks gestation of pregnancy; Z79.4 Long term (current) use of insulin; Z79.82 Long term (current) use of aspirin
CPT/HCPCS: 81001; 87086; 99284

== ENCOUNTER 2022-02-12 00:21 | Outpatient (CLI) | payer OTHER ==
[2022-02-12 01:34] VITALS: BP 134/69; PULSE 96; RESP 16; TEMP 96.4
--- NOTE | 2022-03-14 08:53 | P.MSEPDOC ---
Presenting Problems - Arrival Data Date of Arrival on Unit: 02/12/22 Time of Arrival on Unit: 00:21 Mode of Transport: Ambulatory - Complaint OB-Reason for Admission/Chief Complaint: Rule Out PROM Comment: Pt presents to triage with c/o SROM around 2330. Pt states she was cleaning and. noticed clear fluid dripping down her leg. Pt denies vaginal bleeding or intercourse in the last 24 hrs Medical History - Information : 2 Para: 1 Term: 1 : 0 Abortions: Spontaneous or Elective: 0 Number of Living Children: 1 - Gestational Age Gestational Age by SHAHEEN (wks/days): 24 Weeks and 6 Days - History Complications: Other Comment: Type 2 Diabetic and Graves Disease Review of Systems - Review of Systems Constitutional: No problems Breast: No problems ENT: No problems Cardiovascular: No problems Respiratory: No problems Gastrointestinal: No problems Genitourinary: No problems Musculoskeletal: No problems Neurological: No problems Skin: No problems Vital Signs - Temperature Temperature: 96.4 F Temperature Source: Oral - Pulse Right Brachial Pulse Rate: 96 Pulse Assessment Method: Automatic Cuff - Respirations Respiratory Rate: 16 Oxygen Delivery Method: Room Air O2 Sat by Pulse Oximetry: 100 - Blood Pressure Right Arm Blood Pressure: 134/69 Blood Pressure Mean: 90 Blood Pressure Source: Automatic Cuff Medical Screen Scoring - Assessment - Baby A Baseline FHR: 130 Physician Notification - Physician Notified Physician Notified Date: 02/12/22 Physician Notified Time: 01:18 Physician: Stephania Camp New Order Received: Yes - Notification Comment Comment: Dr. Camp called with report on triage patient that presents for decreased. movement and and ROM while cleaning the floor at 2300. FHT dopplered at. 130-150bpm. Amnisure negative. Patient reports feeling baby move. Patient approved byAlberto Camp for discharge. Maternal Triage Index - Stat/Priority 1 Stat Priority 1: No - Urgent/Priority 2 Urgent Priority 2: Yes Provider Notified: Stephania Camp Provider Notified Time: 01:18 Criteria Met for Priority 2: RN called with report on triage patient that presents for decreased. movement and and ROM while cleaning the floor at 2300. FHT dopplered at. 130-150bpm. Amnisure negative. Patient reports feeling baby move. Patient approved by. Dr. Niver for discharge. Disposition - Disposition OB Disposition: Physician follow up in office, Discharge to home Discharge Date: 02/12/22 Discharge Time: 01:25 I agree with the RN Medical Screening Exam: Yes Case reviewed; plan agreed upon as documented in EMR&OBIX.: Yes Comments: Patient was neither seen nor examined by me Diagnosis: FALSE LABOR, UNSPECIFIED
== END 2022-02-12 01:25 | disposition home or self-care (01) ==
LOC: FBPOP 00:21
PROVIDERS: ATTEND Obstetrics & Gynecology
DX: O47.03 False labor before 37 completed weeks of gestation, third trimester (principal); Z3A.24 24 weeks gestation of pregnancy
CPT/HCPCS: 84112; G0463; 99213

== ENCOUNTER 2022-03-31 23:13 | Outpatient (CLI) | payer OTHER ==
--- NOTE | 2022-04-01 01:12 | US ---
EXAMINATION TYPE: US OB BPP wo non-stress DATE OF EXAM: 04/01/2022 COMPARISON: NONE CLINICAL HISTORY: Fall unable to find heart tones. Patient is 31 weeks and states she fell today. Pat ient is morbidly obese; nurse unable to find heart tones. EXAM PERFORMED: Transabdominal (TA) BPP PARAMETERS: PRESENTATION: Breech LIE: Longitudinal?? HEART RATE: 140 bpm RHYTHM: Normal ERIBERTO: 13.34 cm DIAPHRAGM IMAGED: Limited visualization due to maternal morbid obesity. BPP SCORIN. Breathin (1 episode of breathing of 30 second duration in 30 minutes of scanning time) 2. Movement: 2 (at least 3 discrete body movements in 30 minutes) 3. Tone: 2 (1 episode of active flexion/extension of limb) 4. ERIBERTO: 2 (ERIBERTO index > 5cm) TOTAL SCORE: 8 / 8 Impression Normal biophysical profile.
[2022-04-01 01:34] VITALS: BP 162/77; PULSE 95; RESP 16; TEMP 97.2
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
== END 2022-04-01 00:49 | disposition home or self-care (01) ==
LOC: FBPOP 23:13
PROVIDERS: ATTEND Obstetrics & Gynecology Obstetrics
DX: O9A.213 Injury, poisoning and certain other consequences of external causes complicating pregnancy, third trimester (principal); O71.9 Obstetric trauma, unspecified; Z3A.31 31 weeks gestation of pregnancy
CPT/HCPCS: 84112; 76819; G0463; 99213

== ENCOUNTER 2022-04-27 20:15 | Outpatient (CLI) | payer OTHER ==
[2022-04-27 21:54] VITALS: BP 135/66; PULSE 98; RESP 17; TEMP 97.7
--- NOTE | 2022-04-28 09:58 | P.MSEPDOC ---
Presenting Problems - Arrival Data Date of Arrival on Unit: 04/27/22 Time of Arrival on Unit: 20:15 Mode of Transport: Ambulatory - Complaint OB-Reason for Admission/Chief Complaint: Pain Comment: Pt presents to triage with c/o on and off cramping since yesterday morning and "pressure on shoulders" since this afternoon. Pt rating pain 6 to 8 out of 10, but states she "has no pain at the moment." Medical History - Information : 2 Para: 1 Term: 1 : 0 Abortions: Spontaneous or Elective: 0 Number of Living Children: 1 - Gestational Age Gestational Age by SHAHEEN (wks/days): 34 Weeks and 4 Days Review of Systems - Review of Systems Constitutional: No problems Breast: No problems ENT: No problems Cardiovascular: No problems Respiratory: No problems Gastrointestinal: No problems Genitourinary: No problems Musculoskeletal: No problems Neurological: No problems Skin: No problems Vital Signs - Temperature Temperature: 97.7 F Temperature Source: Temporal Artery Scan - Pulse Pulse Oximetery Pulse Rate: 98 Pulse Assessment Method: Pulse Oximetry - Respirations Respiratory Rate: 17 Oxygen Delivery Method: Room Air O2 Sat by Pulse Oximetry: 97 - Blood Pressure Right Arm Blood Pressure: 135/66 Blood Pressure Mean: 89 Blood Pressure Source: Automatic Cuff Medical Screen Scoring - Cervical Exam Effacement (%): 50 Station: -3 Membranes: Intact - Uterine Contractions Resting: Soft to palpation - Assessment - Baby A Baseline FHR: 150 Physician Notification - Physician Notified Physician Notified Date: 04/27/22 Physician Notified Time: 20:57 Physician: Miriam Sanders Order Received: Yes - Notification Comment Comment: RN spoke with Dr. Sanders regarding DOM triage pt with c/o on and off cramping since yesterday morning and "pressure on shoulders" since this afternoon. Pt was rating pain 6 to 8 out of 10, but stated she "has no pain at the moment." Reported that pt sees Dr. Glover in [place] for high risk, maternal vital signs WNL, but FHT are intermittent despite numerous RNs attempting to reposition but movement is heard audibly. Per Dr. Sanders, intermittent FHT are ok as long as baseline is determined and movement audible. Reported no contractions traced or palpated. Orders received to check pt's cervix. If cervix is less than 2 cm, RN to discharge pt home. Maternal Triage Index - Maternal Triage Index Presenting for scheduled procedure w/no complaint: No - Stat/Priority 1 Stat Priority 1: No - Urgent/Priority 2 Urgent Priority 2: No - Prompt/Priority 3 Prompt Priority 3: No - Non-Urgent/Priority 4 Non-Urgent Priority 4: Yes Criteria Met for Priority 4: Pt presents to triage with c/o on and off cramping since yesterday morning and "pressure on shoulders" since this afternoon. Pt rating pain 6 to 8 out of 10, but states she "has no pain at the moment." Disposition - Disposition OB Disposition: Discharge to home, Written follow up instructions reviewed Discharge Date: 04/27/22 Discharge Time: 21:12 I agree with the RN Medical Screening Exam: Yes Case reviewed; plan agreed upon as documented in EMR&OBIX.: Yes Diagnosis: RELATED CONDITIONS, UNSPECIFIED, THIRD TRIMESTER
== END 2022-04-27 21:12 | disposition home or self-care (01) ==
LOC: FBPOP 20:15
PROVIDERS: ATTEND Obstetrics & Gynecology
DX: O26.93 Pregnancy related conditions, unspecified, third trimester (principal); Z3A.34 34 weeks gestation of pregnancy
CPT/HCPCS: 99213

== ENCOUNTER → 2022-05-12 | Outpatient (CLI) | payer OTHER ==
[2022-05-12 04:30] VITALS: BP 141/72; PULSE 87; RESP 18; TEMP 97.6
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
== END | disposition home or self-care (01) ==
LOC: FBPOP 03:12
PROVIDERS: ATTEND Obstetrics & Gynecology
DX: O26.853 Spotting complicating pregnancy, third trimester (principal); Z3A.37 37 weeks gestation of pregnancy
CPT/HCPCS: 59025; G0463; 99213

== ENCOUNTER 2022-05-25 08:10 | Observation (INO) | payer OTHER ==
[2022-05-25] MEDS ORDERED: SODIUM CHLORIDE 0.9% 1,000 ML IV STA (08:12)
[2022-05-25] MEDS ORDERED: MORPHINE SULFATE 4 MG/ML SYRINGE IVP STA ×2 (08:21→09:19)
[2022-05-25] MEDS ORDERED: ONDANSETRON 4 MG/2 ML VIAL IVP STA (08:21)
[2022-05-25] MEDS ORDERED: FAMOTIDINE 20 MG/2 ML VIAL IV STA (08:21)
--- NOTE | 2022-05-25 08:21 | ED ---
General Adult HPI - General Stated complaint: abd pain Time Seen by Provider: 05/25/22 08:10 Source: patient, EMS Mode of arrival: EMS Limitations: no limitations - History of Present Illness Initial comments: Patient is a pleasant 27-year-old female presenting to emergency Department with abdominal discomfort. Onset of symptoms was last night. Patient is 9 days . . Patient delivered at [facility] secondary to history of diabetes and Graves' disease. Patient did have preeclampsia. Patient did have some infection following childbirth however was unclear what it was. Patient had continuous vaginal delivery at 37 weeks. Patient has nausea without vomiting. Patient has had some mild bleeding still. No swelling. Discomfort is moderate to severe. - Related Data Home Medications Medication Instructions Recorded Confirmed Aspirin EC [Ecotrin Low Dose] 81 mg PO DAILY 01/02/22 05/12/22 Pnv No.95/Ferrous Fum/Folic AC 1 tab PO DAILY 01/02/22 05/12/22 [ Multivitamin Tablet] Insulin Glargine [Lantus Vial] 15 units IM DAILY 02/12/22 05/12/22 Insulin Aspart [NovoLOG Flexpen] See Rx Instructions .ROUTE .COMPLEX 04/27/22 05/12/22 NIFEdipine [NIFEdipine ER] 30 mg PO DAILY 04/27/22 05/12/22 Allergies Allergy/AdvReac Type Severity Reaction Status Date / Time No Known Allergies Allergy Verified 05/12/22 03:18 Review of Systems ROS Statement: Those systems with pertinent positive or pertinent negative responses have been documented in the HPI. ROS Other: All systems not noted in ROS Statement are negative. Constitutional: Reports: other (Patient unaware of fever) ENT: Denies: ear pain Respiratory: Denies: cough Cardiovascular: Denies: chest pain Endocrine: Denies: fatigue Gastrointestinal: Reports: as per HPI, abdominal pain, nausea Genitourinary: Denies: dysuria Musculoskeletal: Denies: back pain Skin: Denies: rash Neurological: Denies: weakness Past Medical History Past Medical History: Asthma, Diabetes Mellitus Additional Past Medical History / Comment(s): migraines, graves disease History of Any Multi-Drug Resistant Organisms: None Reported Past Surgical History: No Surgical Hx Reported Past Anesthesia/Blood Transfusion Reactions: No Reported Reaction Smoking Status: Never smoker - Past Family History Mother Family Medical History: Asthma, Coronary Artery Disease (CAD) Father Family Medical History: Diabetes Mellitus General Exam Limitations: no limitations General appearance: alert Head exam: Present: normocephalic Eye exam: Present: normal appearance Neck exam: Present: normal inspection Respiratory exam: Present: normal lung sounds bilaterally Cardiovascular Exam: Present: regular rate, normal rhythm Expanded Peripheral pulses: 2+: Dorsalis Pedis (R), Dorsalis Pedis (L) GI/Abdominal exam: Present: soft, tenderness (Mild epigastric and right upper quadrant tenderness. Moderate right lower quadrant tenderness), guarding (Mild guarding right lower quadrant), normal bowel sounds. Absent: distended, rebo und, rigid, pulsatile mass Extremities exam: Present: normal inspection. Absent: pedal edema, calf tenderness Neurological exam: Present: alert Psychiatric exam: Present: normal affect, normal mood Skin exam: Present: normal color Course Vital Signs 05/25/22 05/25/22 08:12 08:47 Temperature 100.5 F H Pulse Rate 86 94 Respiratory 24 18 Rate Blood Pressure 184/94 167/84 O2 Sat by Pulse 98 95 Oximetry - Reevaluation(s) Reevaluation #1: 05/25/22 09:02 First blood pressure 184/99, second 183/93, third one 6 he 7/88. Magnesium and labetalol ordered. GRADER TENDER will be paged again. 05/25/22 09:10 Patient was reevaluated. Case was discussed with Dr. wright who would like patient to receive 9 g magnesium at 2 g per hour and labetalol. She agrees with ultrasound. Computed tomography scan has also been ordered. She would like patient to go upstairs and she is in route to evaluate patient upstairs. EKG Findings - EKG Comments: EKG Findings:: Sinus rhythm with a rate of 84. For screening AV block AR 205. QRS 86. QT 348. QTC 388. Normal axis. Normal QRS. No acute ST change. Medical Decision Making - Lab Data Result diagrams: 05/25/22 08:43 05/25/22 08:43 Lab Results 05/25/22 05/25/22 05/25/22 Range/Units 08:43 08:43 08:43 WBC 18.0 H (3.8-10.6) k/uL RBC 4.02 (3.80-5.40) m/uL Hgb 11.4 (11.4-16.0) gm/dL Hct 34.5 (34.0-46.0) % MCV 85.9 (80.0-100.0) fL MCH 28.5 (25.0-35.0) pg MCHC 33.1 (31.0-37.0) g/dL RDW 13.4 (11.5-15.5) % Plt Count 427 (150-450) k/uL MPV 7.9 Neutrophils % 87 % Lymphocytes % 8 % Monocytes % 3 % Eosinophils % 2 % Basophils % 0 % Neutrophils # 15.6 H (1.3-7.7) k/uL Lymphocytes # 1.4 (1.0-4.8) k/uL Monocytes # 0.5 (0-1.0) k/uL Eosinophils # 0.3 (0-0.7) k/uL Basophils # 0.1 (0-0.2) k/uL PT 10.6 (9.0-12.0) sec INR 1.0 (<1.2) APTT 24.1 (22.0-30.0) sec Sodium 137 (137-145) mmol/L Potassium 4.4 (3.5-5.1) mmol/L Chloride 105 (98-107) mmol/L Carbon Dioxide 22 (22-30) mmol/L Anion Gap 10 mmol/L BUN 8 (7-17) mg/dL Creatinine 0.60 (0.52-1.04) mg/dL Est GFR (CKD-EPI)AfAm >90 (>60 ml/min/1.73 sqM) Est GFR (CKD-EPI)NonAf >90 (>60 ml/min/1.73 sqM) Glucose 144 H (74-99) mg/dL Uric Acid 6.5 (3.7-7.4) mg/dL Calcium 9.3 (8.4-10.2) mg/dL Magnesium 1.5 L (1.6-2.3) mg/dL Total Bilirubin 0.5 (0.2-1.3) mg/dL AST 24 (14-36) U/L ALT 26 (4-34) U/L Alkaline Phosphatase 84 (38-126) U/L Lactate Dehydrogenase 631 H (313-618) U/L Total Protein 7.2 (6.3-8.2) g/dL Albumin 3.9 (3.5-5.0) g/dL Amylase 42 (30-110) U/L Lipase 35 (23-300) U/L Critical Care Time Critical Care Time: Yes Total Critical Care Time: 32 Disposition Clinical Impression: hypertension, Abdominal pain Disposition: ADMITTED IP TO THIS HOSP Condition: Serious Is patient prescribed a controlled substance at d/c from ED?: No Referrals: None,Stated [Primary Care Provider] - 1-2 days Time of Disposition: 09:11
[2022-05-25 08:53] LABS: Basophils # (A) 0.1 k/uL (0-0.2); Basophils % (A) 0 %; Eosinophils # (A) 0.3 k/uL (0-0.7); Eosinophils % (A) 2 %; HCT 34.5 % (34.0-46.0); HGB 11.4 gm/dL (11.4-16.0); Lymphocytes # (A) 1.4 k/uL (1.0-4.8); Lymphocytes % (A) 8 %; MCH 28.5 pg (25.0-35.0); MCHC 33.1 g/dL (31.0-37.0); MCV 85.9 fL (80.0-100.0); Mean Platelet Volume 7.9; Monocytes # (A) 0.5 k/uL (0-1.0); Monocytes % (A) 3 %; Neutrophils # (A) 15.6 k/uL (1.3-7.7); Neutrophils % (A) 87 %; Platelet Count 427 k/uL (150-450); RBC 4.02 m/uL (3.80-5.40); RDW 13.4 % (11.5-15.5)
[2022-05-25] MEDS ORDERED: SODIUM CHLORIDE 0.9% IVPB ONE ×4 (09:01→11:30)
[2022-05-25] MEDS ORDERED: MAGNESIUM SULFATE IVPB ONE ×4 (09:01→11:30)
[2022-05-25] MEDS ORDERED: LABETALOL 5 MG/ML VIAL MDV IVP STA ×2 (09:02→09:07)
[2022-05-25 09:04] LABS: Partial Thromboplastin Time 24.1 sec (22.0-30.0); Prothrombin Time 10.6 sec (9.0-12.0)
[2022-05-25 09:07] LABS: ALT 26 U/L (4-34); AST 24 U/L (14-36); African American GFR (CKD) >90 (>60 ml/min/1.73 sqM); Albumin 3.9 g/dL (3.5-5.0); Amylase 42 U/L (30-110); Blood Urea Nitrogen 8 mg/dL (7-17); Carbon Dioxide 22 mmol/L (22-30); Glucose 144 mg/dL (74-99); LDH 631 U/L (313-618); Lipase 35 U/L (23-300); Magnesium 1.5 mg/dL (1.6-2.3); Non-African American GFR(CKD) >90 (>60 ml/min/1.73 sqM); Potassium 4.4 mmol/L (3.5-5.1); Sodium 137 mmol/L (137-145); Total Bilirubin 0.5 mg/dL (0.2-1.3); Total Protein 7.2 g/dL (6.3-8.2); Uric Acid 6.5 mg/dL (3.7-7.4)
[2022-05-25 09:09] LABS: Alkaline Phosphatase 84 U/L (38-126); Anion Gap 10 mmol/L; Calcium 9.3 mg/dL (8.4-10.2); Chloride 105 mmol/L (98-107)
[2022-05-25] MEDS ORDERED: MAGNESIUM SULFATE-WATER PMX 4 GM in WATER FOR INJECTION 1 100ML.BAG IVPB STA (09:11)
[2022-05-25 09:35] LABS: Appearance,Urine Cloudy (Clear); Bacteria,Urine Rare /hpf; Bilirubin,Urine Negative (Negative); Blood,Urine Large (Negative); Color,Urine Yellow; Glucose,Urine (UA) Negative (Negative); Ketones,Urine Negative (Negative); Leukocyte Esterase,Urine Large (Negative); Nitrite,Urine Negative (Negative); Protein,Urine 1+ (Negative); RBC,Urine >182 /hpf (0-5); Specific Gravity,Urine 1.009 (1.001-1.035); Squamous Epithelial Cell,Urine 3 /hpf (0-4); Urobilinogen,Urine <2.0 mg/dL (<2.0); WBC,Urine >182 /hpf (0-5)
--- NOTE | 2022-05-25 09:59 | P.HPOB ---
History of Present Illness H&P Date: 05/25/22 Chief Complaint: Delivered vaginally 9 days ago at [facility], presenting with right This is a 27-year-old black female 2 para 2002 status post vaginal delivery at [facility] 9 days ago of 9 lbs. 14 oz. female . Patient states that they "had a hard time getting out my placenta". She was diagnosed with chorioamnionitis and placed on antibiotics for 24 hours, discharged home after 4 days in the hospital. She presents now with fever at home, nausea and no vomiting, right upper and lower quadrant pain for less than 24 hours. Vaginal bleeding is minimal. She denies visual changes or right upper quadrant pain, she does have a mild headache. Social history is negative for tobacco alcohol or drug use. ALLERGIES none known. Past medical history is significant for insulin-dependent diabetes for 10 years, migraine headaches, Graves' disease. Home medications NovoLog insulin on a sliding scale, 15 mg in the morning, Lantus 20 mg at at bedtime, vitamin daily. Family history is significant for asthma and coronary artery disease. Past obstetric history vaginal delivery 9 days ago, 9 lbs. 14 oz. , with a history of chorioamnionitis. She also had vaginal delivery 2 years ago of a 8 lbs. 12 oz. female infant, unremarkable. Past surgical history is negative. On exam patient is 5 foot 9 inches, 340 pounds, 145 kg, initial blood pressure in the emergency 184/90, repeat 183/93, repeat 167/88. Magnesium sulfate 6 g loading dose has been ordered. Temperature 100.5, pulse 88. The general physical exam reveals a very large woman who appears to be in moderate distress. Her chest is clear in all arita. Cardiac exam is negative. Breasts are consistent with current , no sign of mastitis. Abdomen is grossly obese, patient does have pain in the supra pubic region. Pelvic exam reveals tenderness of the uterus which is difficult to palpate, does not appear clinically enlarged. Patient also has exquisite right lower quadrant pain with guarding, no rebound. Extremities reveal 1+ edema, normal 1+ reflexes. Labs include AST 24, ALTs 26, LDH 631, uric acid 6.5, magnesium 1.6. Blood sugars 145. Computed tomography scan has been ordered to rule out appendicitis. Pelvic ultrasound is also ordered to rule out retained products of conception. Impression: 9 days , severe preeclampsia based on blood pressure parameters, magnesium sulfate 6 g loading dose given, 2 g/h maintenance dose. I also have an index of suspicion for appendicitis versus chorioamnionitis. Plan: Unasyn 6 g loading dose and repeat every 6 hours has been ordered. Continue magnesium sulfate 2 g per hour. Labetalol protocol pending blood pressure trend. Gentamicin with pharmacy to dose. Further plan pending CT and ultrasound results. Review of Systems Constitutional: Reports as per HPI Past Medical History Past Medical History: Asthma, Diabetes Mellitus Additional Past Medical History / Comment(s): migraines, graves disease History of Any Multi-Drug Resistant Organisms: None Reported Past Surgical History: No Surgical Hx Reported Past Anesthesia/Blood Transfusion Reactions: No Reported Reaction Smoking Status: Never smoker - Past Family History Mother Family Medical History: Asthma, Coronary Artery Disease (CAD) Father Family Medical History: Diabetes Mellitus Medications and Allergies Home Medications Medication Instructions Recorded Confirmed Type Aspirin EC [Ecotrin Low Dose] 81 mg PO DAILY 01/02/22 05/12/22 History Pnv No.95/Ferrous Fum/Folic AC 1 tab PO DAILY 01/02/22 05/12/22 History [ Multivitamin Tablet] Insulin Glargine [Lantus Vial] 15 units IM DAILY 02/12/22 05/12/22 History Insulin Aspart [NovoLOG Flexpen] See Rx Instructions .ROUTE .COMPLEX 04/27/22 05/12/22 History NIFEdipine [NIFEdipine ER] 30 mg PO DAILY 04/27/22 05/12/22 History Allergies Allergy/AdvReac Type Severity Reaction Status Date / Time No Known Allergies Allergy Verified 05/12/22 03:18 Exam Vital Signs Temp Pulse Resp BP Pulse Ox 05/25/22 09:33 98 18 143/70 95 05/25/22 09:15 93 18 95 05/25/22 08:47 94 18 167/84 95 05/25/22 08:12 100.5 F H 86 24 184/94 98 Intake and Output 05/24/22 05/25/22 05/25/22 22:59 06:59 14:59 Other: Weight 145.15 kg See dictation under HPI please Results Result Diagrams: 05/25/22 08:43 05/25/22 08:43 Abnormal Lab Results - Last 24 Hours (Table) 05/25/22 05/25/22 Range/Units 08:43 08:43 WBC 18.0 H (3.8-10.6) k/uL Neutrophils # 15.6 H (1.3-7.7) k/uL Glucose 144 H (74-99) mg/dL Magnesium 1.5 L (1.6-2.3) mg/dL Lactate Dehydrogenase 631 H (313-618) U/L Assessment and Plan Assessment: 9 days status post vaginal delivery at another institution, presenting with severe preeclamptic per blood pressure parameters. Also evidence of infection, rule out appendicitis, rule out chorioamnionitis. Plan: Unasyn 3 g loading dose, continue every 6 hours has been ordered. Gentamicin pharmacy to dose. Magnesium sulfate 6 g loading dose, then 2 g per hour. Follow blood pressures and cover with labetalol as needed. 20 units given at this point. Further recommendations pending results of computed tomography scan and ultrasound. Time with Patient: Greater than 30
[2022-05-25 10:02] LABS: T4, Free (Free Thyroxine) 1.19 ng/dL (0.78-2.19)
--- NOTE | 2022-05-25 10:04 | CT ---
EXAMINATION TYPE: CT abdomen pelvis w con DATE OF EXAM: 05/25/2022 HISTORY: severe pelvic pain, fever, vaginal delivery [address] DLP: 5642.4mGycm Automated Exposure Control for Dose Reduction was Utilized. CONTRAST: CT scan of the abdomen and pelvis is performed without oral and with IV Contrast, patient injected wi th 100 mL of Isovue 370. COMPARISON: None FINDINGS: Suboptimal due to artifact related to large body habitus LUNG BASES: Tiny left greater than right pleural effusions. LIVER/GB: Hepatomegaly. Visualized liver heterogeneously hypodense. Findings consistent with diffuse fatty infiltration. Dependent small stones and/or sludge in gallbladder. No biliary dilatation. PANCREAS: No significant abnormality is seen. SPLEEN: No significant abnormality is seen. ADRENALS: No significant abnormality is seen. KIDNEYS: Symmetric corticomedullary uptake and excretion without hydronephrosis seen bilaterally. BOWEL: Suboptimal evaluation without enteric contrast. No suspicious small or large bowel dilatation. UTERUS/ADNEXA: Anteverted prominent uterus consistent with recent vaginal delivery 8 days earlier. No free fluid in pelvis. Single right-sided pelvic phlebolith. LYMPH NODES: No greater than 1cm abdominal or pelvic lymph nodes are appreciated. OSSEOUS STRUCTURES: Slight underlying scoliotic curvature or more likely positioning. OTHER: Mild soft tissue edema. IMPRESSION: No significant acute finding is seen to account for patient's clinical symptoms of severe pelvic pain and fever.
--- NOTE | 2022-05-25 10:06 | US ---
EXAMINATION TYPE: US pelvic complete DATE OF EXAM: 05/25/2022 COMPARISON: CT same day CLINICAL HISTORY: pain and fever. TECHNIQUE: Transabdominal (TA). Date of LMP: patient gave 9 days ago. EXAM MEASUREMENTS: Uterus: 16.2 x 9.4 x 12.7 cm Endometrial Stripe: measures 1.1 with small amount of fluid within cm Right Ovary: not seen Left Ovary: not seen 1. Uterus: Anteverted Enlarged, heterogeneous echotexture 2. Endometrium: has small amount of fluid within 3. Right Ovary: not seen 4. Left Ovary: not seen 5. Bilateral Adnexa: wnl 6. Posterior cul-de-sac: no free fluid Heterogeneous prominent uterus correlates with patient's history of recent vaginal delivery. Tiny naun unt of free fluid in the endometrial canal is anechoic or simple-appearing. No suspicious endometrial thickening or vascularity to suggest retained products of conception. No free fluid. Neither ovary clearly identified. No suspicious adnexal masses. IMPRESSION: As above.
[2022-05-25] MEDS ORDERED: hydrALAZINE HCL 20 MG/ML 1 ML VIAL IVP PRN (10:07)
[2022-05-25] MEDS ORDERED: LABETALOL 5 MG/ML VIAL MDV IVP PRN ×3 (10:07)
[2022-05-25] MEDS: LACTATED RINGERS 1,000 ML IV SCH (10:10)
[2022-05-25] MEDS: MAGNESIUM SULFATE-WATER PMX 20 GM in WATER FOR INJECTION 1 500ML.BAG IV SCH ×2 (10:50→21:10)
[2022-05-25] MEDS ORDERED: ACETAMINOPHEN TAB 500 MG TAB PO PRN (11:00)
[2022-05-25] MEDS ORDERED: HYDROcodone/APAP 5-325MG 1 EACH TAB PO ONE (11:00)
[2022-05-25] MEDS: GENTAMICIN 170 MG in SODIUM CHLORIDE 0.9% 100 ML IVPB SCH ×2 (11:16→18:47)
[2022-05-25 11:17] LABS: Glucose,Whole Blood 129 mg/dL (70-110)
[2022-05-25] MEDS: AMPICILLIN-SULBACTAM 3 GM in SODIUM CHLORIDE 0.9% 100 ML IVPB SCH ×2 (12:01→17:56)
[2022-05-25] MEDS: INSULIN ASPART (NovoLOG) 100 UNIT/ML VIAL SQ SCH ×3 (13:14→21:37)
[2022-05-25] MEDS: IBUPROFEN 800 MG TAB PO PRN (17:56)
[2022-05-25 18:02] LABS: Glucose,Whole Blood 122 mg/dL (70-110)
[2022-05-25] MEDS ORDERED: HYDROcodone/APAP 5-325MG 1 EACH TAB PO PRN (19:00)
[2022-05-25] MEDS ORDERED: INSULIN DETEMIR (LEVEMIR) 100 UNIT/ML SYR SQ SCH (21:00)
[2022-05-25] MEDS: GENTAMICIN PER PHARMACY MISCELLANE SCH (21:01)
[2022-05-25 21:09] LABS: Glucose,Whole Blood 163 mg/dL (70-110)
[2022-05-26] MEDS: AMPICILLIN-SULBACTAM 3 GM in SODIUM CHLORIDE 0.9% 100 ML IVPB SCH ×3 (00:09→11:59)
[2022-05-26] MEDS: IBUPROFEN 800 MG TAB PO PRN (01:39)
[2022-05-26] MEDS: GENTAMICIN 170 MG in SODIUM CHLORIDE 0.9% 100 ML IVPB SCH ×2 (03:25→10:14)
[2022-05-26 07:17] LABS: Glucose,Whole Blood 95 mg/dL (70-110)
[2022-05-26] MEDS: INSULIN ASPART (NovoLOG) 100 UNIT/ML VIAL SQ SCH ×2 (07:22→12:04)
[2022-05-26] MEDS ORDERED: GENTAMICIN TROUGH DUE 1 EACH MISC MISCELLANE ONE (09:30)
[2022-05-26] MEDS: MAGNESIUM SULFATE-WATER PMX 20 GM in WATER FOR INJECTION 1 500ML.BAG IV SCH (10:10)
[2022-05-26 10:12] LABS: Basophils % (A) 0 %; Eosinophils # (A) 0.3 k/uL (0-0.7); Eosinophils % (A) 3 %; HCT 33.8 % (34.0-46.0); Hypochromasia Slight; Lymphocytes # (A) 1.3 k/uL (1.0-4.8); Lymphocytes % (A) 15 %; MCH 28.6 pg (25.0-35.0); MCHC 32.7 g/dL (31.0-37.0); MCV 87.4 fL (80.0-100.0); Mean Platelet Volume 7.9; Monocytes # (A) 0.4 k/uL (0-1.0); Monocytes % (A) 5 %; Neutrophils # (A) 6.8 k/uL (1.3-7.7); Neutrophils % (A) 76 %; Platelet Count 401 k/uL (150-450); RBC 3.86 m/uL (3.80-5.40); RDW 13.4 % (11.5-15.5); WBC 8.9 k/uL (3.8-10.6)
[2022-05-26] MEDS: GENTAMICIN PER PHARMACY MISCELLANE SCH (10:15)
[2022-05-26] MEDS: LACTATED RINGERS 1,000 ML IV SCH (10:15)
[2022-05-26] MEDS ORDERED: SENNOSIDES-DOCUSATE SODIUM 1 EACH TAB PO STA (10:49)
[2022-05-26 11:38] VITALS: RESP 16
[2022-05-26] MEDS ORDERED: GENTAMICIN PEAK DUE 1 EACH MISC MISCELLANE ONE (12:00)
[2022-05-26 12:04] LABS: Glucose,Whole Blood 113 mg/dL (70-110)
[2022-05-26 14:53] VITALS: BP 143/82; PULSE 76; TEMP 97.8
--- NOTE | 2022-05-29 07:50 | P.DS ---
Providers Date of admission: 05/25/22 09:14 Expected date of discharge: 05/26/22 Attending physician: Stephania Camp Primary care physician: Stated None Hospital Course: This is a 27-year-old black female 2 para 2 status post vaginal delivery at another institution 10 days ago who presented to the emergency room yesterday with severe preeclampsia and endometritis. Blood pressures were 180s over 90s range, magnesium sulfate 6 g loading dose was given and 2 g per hour maintenance dose. In addition, patient had a temperature and a white count of 18,000 with severe uterine tenderness, consistent with endometritis. Ultrasound and computed tomography scan were otherwise negative. No evidence of Appendicitis. Please see my dictated history and physical for details. Through the night patient has diuresed over 4 L of fluid. This morning her blood pressure has completely normalized, her pain is completely resolved. She was given Unasyn and gentamicin, subsequent doses do at noon. Morning CBC is pending. On physical exam, reflexes are normal, uterus is nontender, patient has no complaints and is feeling very well. Blood pressure this morning 130/60, blood sugar 95. Patient is judged to be in good condition for discharge home. She will receive her doses of intravenous antibiotics at noon, and will likely be discharged home later today on Augmentin 875 mg twice a day for 10 days. Morning white count pending. The signs and symptoms of preeclampsia are reviewed with the patient. She will follow-up with her own private hand spray operator in 2 weeks. She is breast-feeding, declines the need for any pain medication, is on a sliding insulin scale at home for insulin-dependent diabetes with good knowledge base on blood sugar monitoring and care. Assessment: Doing well 10 days , blood pressure normalized, endometritis under good control. Patient Condition at Discharge: Good Plan - Discharge Summary Discharge Rx Participant: No New Discharge Prescriptions: No Action Pnv No.95/Ferrous Fum/Folic AC [ Multivitamin Tablet] 1 tab PO DAILY Insulin Glargine [Lantus Vial] 15 units IM DAILY Insulin Aspart [NovoLOG Flexpen] See Rx Instructions .ROUTE .COMPLEX Aspirin EC [Ecotrin Low Dose] 81 mg PO DAILY NIFEdipine [NIFEdipine ER] 30 mg PO DAILY Discharge Medication List Aspirin EC [Ecotrin Low Dose] 81 mg PO DAILY 01/02/22 [History] Pnv No.95/Ferrous Fum/Folic AC [ Multivitamin Tablet] 1 tab PO DAILY 01/02/22 [History] Insulin Glargine [Lantus Vial] 15 units IM DAILY 02/12/22 [History] Insulin Aspart [NovoLOG Flexpen] See Rx Instructions .ROUTE .COMPLEX 04/27/22 [History] NIFEdipine [NIFEdipine ER] 30 mg PO DAILY 04/27/22 [History] Follow up Appointment(s)/Referral(s): None,Stated [Primary Care Provider] - 2 Weeks Discharge Disposition: HOME SELF-CARE
== END 2022-05-26 15:37 | disposition home or self-care (01) ==
LOC: EC 08:10 → OBSVTOIN 09:14 → 4FBP 09:14 → INTOOBSV 09:14 → UNDODISIN 05-26 15:37
PROVIDERS: ADMIT Obstetrics & Gynecology; ATTEND Obstetrics & Gynecology
DX: O14.15 Severe pre-eclampsia, complicating the puerperium (principal); O86.12 Endometritis following delivery; O24.13 Pre-existing type 2 diabetes mellitus, in the puerperium; O86.89 Other specified puerperal infections; O99.355 Diseases of the nervous system complicating the puerperium; G43.909 Migraine, unspecified, not intractable, without status migrainosus; O99.53 Diseases of the respiratory system complicating the puerperium; J45.909 Unspecified asthma, uncomplicated; O90.89 Other complications of the puerperium, not elsewhere classified; E05.00 Thyrotoxicosis with diffuse goiter without thyrotoxic crisis or storm; O99.215 Obesity complicating the puerperium; E66.9 Obesity, unspecified; Z79.82 Long term (current) use of aspirin; Z79.4 Long term (current) use of insulin; Z79.899 Other long term (current) drug therapy; Z82.49 Family history of ischemic heart disease and other diseases of the circulatory system; Z82.5 Family history of asthma and other chronic lower respiratory diseases; Z83.3 Family history of diabetes mellitus
CPT/HCPCS: 96376 ×2; 96365 ×2; 96366 ×2; 96367; 96361; 96375; 99291; 36415; 93005; 84439; 80170 ×2; 84481; 80053; 82150; 83615; 83690; 83735; 84443; 84550; 85025 ×2; 85610; 85730; 81001; 87040; 87086; 76856; 74177; G0378 ×2; J2270; J1580 ×2; J2405; J3475 ×3; J0295 ×2; Q9967; 96374

== ENCOUNTER 2023-08-03 10:01 | Emergency (ER) | payer OTHER ==
[2023-08-03 10:09] VITALS: RESP 20
--- NOTE | 2023-08-03 11:25 | ED ---
General Adult HPI - General Chief complaint: Extremity Injury, Lower Stated complaint: L Knee Pain Time Seen by Provider: 08/03/23 10:46 Source: patient, RN notes reviewed Mode of arrival: EMS Limitations: no limitations - History of Present Illness Initial comments: 28-year-old female presents to the emergency department chief complaint of left knee pain that started this morning. She states the pain is lateral to the knee cap. She reports that she has not had pain like this in the past. She states the pain is worse with walking. She admits to taking Tylenol for the pain which helped somewhat. Denies fever. Denies injury. Denies swelling, pain, redness to the lower leg. - Related Data Home Medications Medication Instructions Recorded Confirmed Aspirin EC [Ecotrin Low Dose] 81 mg PO DAILY 01/02/22 05/12/22 Pnv No.95/Ferrous Fum/Folic AC 1 tab PO DAILY 01/02/22 05/12/22 [ Multivitamin Tablet] Insulin Glargine [Lantus Vial] 15 units IM DAILY 02/12/22 05/12/22 Insulin Aspart [NovoLOG Flexpen] See Rx Instructions .ROUTE .COMPLEX 04/27/22 05/12/22 NIFEdipine [NIFEdipine ER] 30 mg PO DAILY 04/27/22 05/12/22 Allergies Allergy/AdvReac Type Severity Reaction Status Date / Time No Known Allergies Allergy Verified 08/03/23 10:07 Review of Systems ROS Statement: Those systems with pertinent positive or pertinent negative responses have been documented in the HPI. ROS Other: All systems not noted in ROS Statement are negative. Past Medical History Past Medical History: Asthma, Diabetes Mellitus Additional Past Medical History / Comment(s): migraines, graves disease History of Any Multi-Drug Resistant Organisms: None Reported Past Surgical History: No Surgical Hx Reported Past Anesthesia/Blood Transfusion Reactions: No Reported Reaction Past Psychological History: Anxiety Smoking Status: Never smoker Past Alcohol Use History: Occasional Past Drug Use History: Marijuana - Past Family History Mother Family Medical History: Asthma, Coronary Artery Disease (CAD) Father Family Medical History: Diabetes Mellitus General Exam Limitations: no limitations General appearance: alert, in no apparent distress Head exam: Present: atraumatic, normocephalic, normal inspection Eye exam: Present: normal appearance Neck exam: Present: normal inspection. Absent: tenderness, meningismus, lymphadenopathy Respiratory exam: Present: normal lung sounds bilaterally. Absent: respiratory distress, wheezes, rales, rhonchi, stridor Cardiovascular Exam: Present: regular rate, normal rhythm, normal heart sounds. Absent: systolic murmur, diastolic murmur, rubs, gallop, clicks Extremities exam: Present: full ROM, tenderness (left knee lateral to patella), normal capillary refill, other (DP and PT pulses 2+). Absent: pedal edema, calf tenderness Neurological exam: Present: alert, oriented X3 Psychiatric exam: Present: normal affect, normal mood Skin exam: Present: warm, dry, intact, normal color. Absent: rash Course Vital Signs 08/03/23 08/03/23 10:05 12:21 Temperature 98.1 F 97.9 F Pulse Rate 88 80 Respiratory 20 20 Rate Blood Pressure 156/77 148/73 O2 Sat by Pulse 99 99 Oximetry Medical Decision Making - Medical Decision Making Was pt. sent in by a medical professional or institution (, PA, DEPUTY CHIEF SHERIFF, urgent care, hospital, or shelter...) When possible be specific @ -No Did you speak to anyone other than the patient for history (EMS, parent, family, police, friend...)? What history was obtained from this source @ -No Did you review nursing and triage notes (agree or disagree)? Why? @ -I reviewed and agree with nursing and triage notes Were old charts reviewed (outside hosp., previous admission, EMS record, old EKG, old radiological studies, urgent care reports/EKG's, shelter records)? Report findings @ -No old charts were reviewed Differential Diagnosis (chest pain, altered mental status, abdominal pain women, abdominal pain men, vaginal bleeding, weakness, fever, dyspnea, syncope, headache, dizziness, GI bleed, back pain, seizure, CVA, palpatations, mental health, musculoskeletal)? @ -Differential Musculoskeletal Muscular strain, contusion, ligament sprain, fracture, arthritis, septic arthritis, bursitis, cellulitis, muscle spasm, nerve compression, DVT, arterial occlusion, herpes zoster, electrolyte abnormality, tumor.... This is not meant to be in all inclusive list EKG interpreted by me (3pts min.). @ -None X-rays interpreted by me (1pt min.). @ -[XR left knee shows no evidence of acute fracture CT interpreted by me (1pt min.). @ -None done U/S interpreted by me (1pt. min.). @ -None done What testing was considered but not performed or refused? (CT, X-rays, U/S, labs)? Why? @ -None What meds were considered but not given or refused? Why? @ -None Did you discuss the management of the patient with other professionals (professionals i.e. Dr., PA, DEPUTY CHIEF SHERIFF, lab, RT, psych nurse, protective services social worker, pencil maker, teacher, information assurance officer, machine adjuster leader case trim)? Give summary @ -No Was smoking cessation discussed for >3mins.? @ -No Was critical care preformed (if so, how long)? @ -No Were there social determinants of health that impacted care today? How? (Homelessness, low income, unemployed, alcoholism, drug addiction, transportation, low edu. Level, literacy, decrease access to med. care, assisted, rehab)? @ -No Was there de-escalation of care discussed even if they declined (Discuss DNR or withdrawal of care, Hospice)? DNR status @ -No What co-morbidities impacted this encounter? (DM, HTN, Smoking, COPD, CAD, Cancer, CVA, ARF, Chemo, Hep., AIDS, mental health diagnosis, sleep apnea, morbid obesity)? @ -None Was patient admitted / discharged? Hospital course, mention meds given and route, prescriptions, significant lab abnormalities, going to OR and other pertinent info. @ -Discharged. Patient presented to the emergency department with chief complaint of left knee pain that started when she woke up this morning. There is some slight swelling just lateral to the patella with tenderness in this area. XR obtained shows no evidence of acute fracture. Knee wrapped in rose bandage. Patient given toradol and lidocaine patch for pain. Patient advised to rest, ice, elevate. Patient stable at time of discharge. Case discussed with Dr. Armando Undiagnosed new problem with uncertain prognosis? @ -No Drug Therapy requiring intensive monitoring for toxicity (Heparin, Nitro, Insulin, Cardizem)? @ -No Were any procedures done? @ -No Diagnosis/symptom? @ -[left knee pain Acute, or Chronic, or Acute on Chronic? @ -Acute Uncomplicated (without systemic symptoms) or Complicated (systemic symptoms)? @ -Uncomplicated Side effects of treatment? @ -No Exacerbation, Progression, or Severe Exacerbation? @ -No Poses a threat to life or bodily function? How? (Chest pain, USA, [place], pneumonia, PE, COPD, DKA, ARF, appy, cholecystitis, CVA, Diverticulitis, Homicidal, Suicidal, threat to staff... and all critical care pts) @ -No Disposition Clinical Impression: Knee pain, left Disposition: HOME SELF-CARE Condition: Stable Instructions (If sedation given, give patient instructions): Knee Pain (ED) Additional Instructions: Please follow up with your primary care provider. Rest, ice, elevate, compress the knee. Take Tylenol and Motrin as needed for pain. Return to the emergency department for new or worsening symptoms. Is patient prescribed a controlled substance at d/c from ED?: No Referrals: None,Stated [Primary Care Provider] - 1-2 days Time of Disposition: 12:05
--- NOTE | 2023-08-03 11:28 | XR ---
EXAMINATION TYPE: XR knee complete LT DATE OF EXAM: 08/03/2023 11:13 AM CLINICAL INDICATION:Female, 28 years old with history of pain; COMPARISON: None. TECHNIQUE: The Left knee(s) was examined in Frontal, lateral and oblique projections. FINDINGS: No evidence of any acute osseous pathology, soft tissue swelling, or joint effusion is no ethan. Mild osteophyte formation of the patella. A fabella is present. Suspected chronic injury to the tibia l tubercle with protrusion. IMPRESSION: 1. No acute osseous pathology. 2. Mild degeneration worse in the patellofemoral joint. Consider evaluation with MRI as clinically wa rranted.
[2023-08-03] MEDS ORDERED: LIDOCAINE 5% PATCH TOPICAL STA (11:57)
[2023-08-03] MEDS ORDERED: KETOROLAC 15 MG/ML 1 ML VIAL IM STA (11:58)
[2023-08-03 12:24] VITALS: BP 148/73; PULSE 80; TEMP 97.9
== END 2023-08-03 12:23 | disposition home or self-care (01) ==
LOC: EC 10:01
DX: M25.562 Pain in left knee (principal); E11.9 Type 2 diabetes mellitus without complications; J45.909 Unspecified asthma, uncomplicated; F12.90 Cannabis use, unspecified, uncomplicated; Z86.59 Personal history of other mental and behavioral disorders; Z79.82 Long term (current) use of aspirin; Z79.4 Long term (current) use of insulin
CPT/HCPCS: 73562; 99283; 96372; J1885